=== PATIENT | male | born 1990 | race Caucasian/White ===

== ENCOUNTER 2023-04-01 16:29 | Emergency (ER) | payer OTHER, SELFPAY ==
--- NOTE | 2023-04-01 | CT_ITS ---
The [address] [address] Patient Name: JAMA GOLD MRN: [id number] date: 1990 Sex: M Assigned Patient Location: ER Current Patient Location: ER Accession/Order Number: [id number] Exam Date: 04/01/2023 16:55 Report Date: 04/01/2023 17:25 At the request of: SOWMYA TRUJILLO Procedure: CT cervical spine wo con EXAMINATION: CT head/brain wo con, CT cervical spine wo con HISTORY: fall COMPARISON: None. TECHNIQUE: CT scan of the head and cervical spine was performed without IV contrast. CT dose reduction technique was used, including Automated Exposure Control. FINDINGS: There are no extra-axial fluid collections. There is no mass effect or midline shift. The cerebral ventricles and sulci are normal. The brain demonstrates normal attenuation. Basal cisterns are patent. Bilateral orbits, paranasal sinuses and mastoid air cells are patent. No skull base fracture. Cervical spine: There is normal cervical lordosis. No spondylolisthesis. Atlantodental interval is normal. No prevertebral soft tissue swelling. No evidence for fracture at the skull base or throughout the cervical spine. IMPRESSION: No acute intracranial hemorrhage. No acute cervical spine fracture or subluxation. Electronically authenticated by: JEANE MONTES DE OCA Date: 04/01/2023 17:25
[2023-04-01 16:34] VITALS: BP 125/94; PULSE 78; RESP 18; TEMP 36.6; O2SAT 97; BMI 25.1
--- NOTE | 2023-04-01 16:45 | CT_ITS ---
The [address] [address] Patient Name: JAMA GOLD MRN: [id number] date: 1990 Sex: M Assigned Patient Location: ER Current Patient Location: ER Accession/Order Number: [id number] Exam Date: 04/01/2023 16:55 Report Date: 04/01/2023 17:25 At the request of: SOWMYA TRUJILLO Procedure: CT head/brain wo con EXAMINATION: CT head/brain wo con, CT cervical spine wo con HISTORY: fall COMPARISON: None. TECHNIQUE: CT scan of the head and cervical spine was performed without IV contrast. CT dose reduction technique was used, including Automated Exposure Control. FINDINGS: There are no extra-axial fluid collections. There is no mass effect or midline shift. The cerebral ventricles and sulci are normal. The brain demonstrates normal attenuation. Basal cisterns are patent. Bilateral orbits, paranasal sinuses and mastoid air cells are patent. No skull base fracture. Cervical spine: There is normal cervical lordosis. No spondylolisthesis. Atlantodental interval is normal. No prevertebral soft tissue swelling. No evidence for fracture at the skull base or throughout the cervical spine. IMPRESSION: No acute intracranial hemorrhage. No acute cervical spine fracture or subluxation. Electronically authenticated by: JEANE MONTES DE OCA Date: 04/01/2023 17:25
--- NOTE | 2023-04-01 16:45 | XR_ITS ---
The [place] [id number] Patient Name: JAMA GOLD MRN: [id number] date: 1990 Sex: M Assigned Patient Location: ER Current Patient Location: ER Accession/Order Number: [id number] Exam Date: 04/01/2023 17:04 Report Date: 04/01/2023 17:26 At the request of: SOWMYA TRUJILLO Procedure: XR knee LT 3V EXAM: XR knee LT 3V HISTORY: fall COMPARISON: None. TECHNIQUE: 3 views of the left knee FINDINGS: There is no acute fracture or dislocation. No knee joint effusion. The soft tissue is unremarkable. IMPRESSION: No acute process. Electronically authenticated by: JEANE MONTES DE OCA Date: 04/01/2023 17:26
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
== END 2023-04-01 18:05 | disposition home or self-care (01) ==
PROVIDERS: Emergency Provider Emergency Medicine
DX: S83.92XA Sprain of unspecified site of left knee, initial encounter (principal); S09.90XA Unspecified injury of head, initial encounter; W01.10XA Fall on same level from slipping, tripping and stumbling with subsequent striking against unspecified object, initial encounter
CPT/HCPCS: 70450; 72125; 73562; 99284

== ENCOUNTER 2024-03-06 16:02 | Outpatient (OUT) | payer OTHER, SELFPAY ==
--- NOTE | 2024-03-06 | XR_ITS ---
The [address] [address] Patient Name: JAMA GOLD MRN: [id number] date: 1990 Sex: M Assigned Patient Location: Current Patient Location: Accession/Order Number: [id number] Exam Date: 03/06/2024 16:05 Report Date: 03/07/2024 07:27 At the request of: RADHA ANDINO Procedure: XR knee LT 4V PROCEDURE: XR knee LT 4V COMPARISON: None. HISTORY: LEFT KNEE PAIN FINDINGS: BONES:No fracture, acute abnormality, or significant arthropathy. SOFT TISSUES:Negative. No visible soft tissue swelling. EFFUSION:None visible. OTHER: Negative. XR/XR knee LT 4V IMPRESSION: No acute radiographic abnormality Electronically authenticated by: THELMA PULLIAM Date: 03/07/2024 07:27
== END 2024-03-06 16:03 | disposition home or self-care (01) ==
LOC: EC 16:03
PROVIDERS: Visit Provider Student in an Organized Health Care Education/Training Program
DX: M25.562 Pain in left knee (principal)
CPT/HCPCS: 73564

== ENCOUNTER 2024-03-16 06:57 | Outpatient (OUT) | payer OTHER, SELFPAY ==
--- NOTE | 2024-03-16 06:59 | MR_ITS ---
[place] [id number] Patient Name: JAMA GOLD MRN: [id number] date: 1990 Sex: M Assigned Patient Location: MRI Current Patient Location: Accession/Order Number: [id number] Exam Date: 03/16/2024 07:30 Report Date: 03/17/2024 05:01 At the request of: RADHA ANDINO Procedure: MR knee LT wo con EXAMINATION: MR knee LT wo con HISTORY: Acute pain of left knee M25.562 ; medial knee pain COMPARISON: No relevant comparison available. TECHNIQUE: A complete multi-planar MRI was performed. FINDINGS: MEDIAL COMPARTMENT MEDIAL MENISCUS: No visible tear or significant degeneration. CARTILAGE: No visible defect. BONES: No marrow pathology, fracture, or significant arthropathy. MCL AND MEDIAL CAPSULE: Normal medial collateral ligament and medial capsule. LATERAL COMPARTMENT LATERAL MENISCUS: No visible tear or significant degeneration. CARTILAGE: No visible defect. BONES: No marrow pathology, fracture, or significant arthropathy. LCL/POSTEROLAT COMPLEX: Normal lateral collateral ligament, fascicles, lateral capsule and ligaments. ANTERIOR COMPARTMENT PATELLA: No marrow pathology, fracture, or significant arthropathy. CARTILAGE: No visible defect. TENDONS: Normal. EFFUSION: None. No synovitis or loose bodies. ACL: Normal appearing ligament. PCL: Normal appearing ligament. MENISCOFEMORAL: Normal meniscofemoral ligaments. OTHER: Negative. MR/MR knee LT wo con IMPRESSION: 1. Normal examination. Electronically authenticated by: NILSA CHEW Date: 03/17/2024 05:01
--- OUTSIDE RECORDS SUMMARY | 2024-03-16 07:00 | XMS_ITS | CCD ---
Author Organization [facility] ion [facility] Care Team Providers Care Powerhouse Oiler Name Role Phone FAWN TSAI Referring Unavailable BALDO DE Referring Unavailable REQUEST, DR FRYE LISTED Primary Care Unavaila greta GORE, DR RASHEED Viramontes Admitting Unavailabl e SOFÍA, DR RASHEED Viramontes Consulting Unavailabl e SOFÍA, DR RASHEED Viramontes Attending Unavailabl e RASTEVICKI, JEANE Consulting Unavailable Unavailable Primary Care Provider Unavailemilia e NO FAMILY, PHYSICIAN Primary Care Provider Unava ilable DO Ivan Mendoza Attending Provider Ivan Mendoza Unavailable Ivan Mendoza Admitting Unavailable Ivan Mendoza Attending Unavailable NO FAMILY, PHYSICIAN Primary Care Unavailable Oneal Roberto Admitting Unavailable Oneal Roberto Attending Unavailable NO FAMILY, PHYSICIAN Primary Care Unavailable Unavailable Primary Care Provider Unavailabl e DOTTIE, MIRANDA Referring Unavailable SVITLANA LI Referring Unavailable SVITLANA LI Referring Unavailable TABITHA WILLIS Attending Unavailable SELF Referring Unavailable SVITLANA LI Attending Unavailable SVITLANA LI Referring Unavailable SVITLANA LI Attending Unavailable BENI DIXON Attending Unavailable BALDO DE Referring Unavailable DOROTHY WALDRON Referring Unavailable JOHANNA JACQUES Attending Unavailable SELF Referring Unavailable SELF Referring Unavailable SVITLANA LI Referring Unavailable THELMA MARTINEZ JR Referring Unavailable LEVI HENRY II Attending Unavailable SVITLANA LI Attending Unavailable SVITLANA LI Referring Unavailable DOROTHY WALDRON Attending Unavailable DOROTHY WALDRON Referring Unavailable MIRANDA MUIR Attending Unavailable SVITLANA LI Referring Unavailable Allergies Allergy Classification Reported Allergen(s) Allergy Type Date of Onset Reaction(s) Facility (2 sources) Ibuprofen Drug Allergy 4 [facility] (1 source) Ibuprofen Drug Allergy 4 [facility] (1 source) Tetracaine Drug Allergy 4 Mental Status Change [facility] Medications Current Medications Medication Drug Class(es) Dates Sig (Normalized) Sig (Original) benoxinate hydrochloride 4 mg/ml / fluorescein sodium 3 mg/ml ophthalmic solution (2 sources) Diagnostic Dye Start: 03-10-2024 End: 03-10-2024 fluorescein-sarika xinate 0.3-0.4 % 1 Drop (FLURESS) 12 hr hyoscyamine sulfate 0.375 mg extended release oral tablet (12 sources) Start: 05-04-2023 End: 08-02-2023 take 1 tablet by mouth twice daily hyoscyamine SR (LEVBID) 0.375 mg 12 hr tablet TAKE 1 TABLET BY MOUTH TWICE A DAY 60 tablet 2 07/06/2023 Active Comment on above: Take 1 tablet by natanael th twice daily. TAKE 1 TABLET BY NATANAEL TH TWICE A DAY ketotifen 0.25 mg/ml ophthalmic solution (1 source) Histamine-1 Receptor Inhibitor Start: 03-10-2024 ketotifen fumarate (ALAWAY) 0.025 % (0.035 %) ophthalmic solution Use 1 Drop in both eyes two times a day. 10 mL 5 03/10/2024 Active meloxicam 15 mg oral tablet (19 sources) Nonsteroidal Anti-inflammatory Drug Start: 04-02-2023 meloxicam (MOBIC) 15 mg tablet Take one tablet once daily 30 tablet 0 04/02/2023 Active Comment on above: Take one tablet once daily methylPREDNISolone 4 mg oral tablet (2 sources) Corticosteroid Start: 03-07-2024 MEDROL, MCKINLEY, 4 mg Dose-Pack as directed po as directed 0 03/07/2024 Active Start: 12-04-2019 Depo-Medrol 40 mg Nov, 80 mg [place] (No Known Home Meds) (1 source) Start: 03-29-2020 [place] (No Kn own Home Meds) Active March 28, 2020 11:00pm pantoprazole 40 mg delayed release oral tablet (13 sources) Proton Pump Inhibitor Start: 05-03-2023 take 1 tablet by mouth once daily pantoprazole DR (PROTONIX) 40 mg tablet Take 1 tablet by mouth once daily. 30 tablet 3 05/03/2023 Active Comment on above: Take 1 tablet by natanael th once daily. perflutren lipid microspheres 1.3 mL in NaCl (PF) 0.9% 10 mL injection (DEFINITY) (20 sources) Start: 11-23-2022 End: 02-22-2024 perflutren lipid microspheres 1.3 mL in NaCl (PF) 0.9% 10 mL injection (DEFINITY) Start: 07-21-2022 End: 10-20-2023 perflutren lipid microsphere s 1.3 mL in NaCl (PF) 0.9% 10 mL injection (DEFINITY) predniSONE 5 mg oral tablet (2 sources) Start: 09-28-2023 predniSONE 5 M G TAKE 5 PILLS BY MOUTH x 2 DAYS, THEN TAKE 4 PILLS BY MOUTH x 2 DAYS, THEN TAKE 3 PILLS BY MOUTH x 2 DAYS, THEN TAKE 2 PILLS BY MOUTH X 2 DAYS, THEN TAKE 1 PILL BY MOUTH x 2 DAY Orally daily for 10 days Sep, Active Start: 06-12-2019 End: 03-29-2020 take 50 mg by mouth once daily at mealtime Prednisone Discontinued 50 MG PO Daily 5 5 June 11, 2019 11:00pm March 29, 2020 2:02am administer with food or milk 125 ml sodium chloride 9 mg/ ml prefilled syringe (20 sources) Start: 07-21-2022 End: 02-22-2024 sodium chloride 0.9 % (flush ) 10 mL (BD POSIFLUSH) Completed/Discontinued Medications Medication Drug Class(es) Dates Sig (Normalized) Sig (Original) [id number] 200 actuat albuterol 0.09 mg/actuat metered dose inhaler (1 source) beta2-Adrenergic Agonist Start: 06-12-2019 End: 03-29-2020 Albuterol Sulfate Discontinued 2 INH INHALATION .every 4 hours prn June 11, 2019 11:00pm March 29, 2020 2:02am administer with spacer benzonatate 100 mg oral capsule (1 source) Non-narcotic Antitussive Start: 06-12-2019 End: 03-29-2020 take 2 capsules by mouth three times daily Benzonatate (Tessalon Perles) 100 mg capsule Discontinued 200 MG PO Three times daily June 11, 2019 11:00pm March 29, 2020 2:02am clindamycin 300 mg oral capsule (1 source) Lincosamide Antibacterial Start: 04-19-2023 take 1 capsule by mouth every eight hours Clindamycin HCl 300 MG 1 cap(s) Orally tid for 10 day(s) Mar, Not-Taking/PRN dextromethorphan hydrobromide 3 mg/ml / promethazine hydrochloride 1.25 mg/ml oral solution (1 source) Phenothiazine, Uncompetitive O-jwizqx-Q-aspartat e Receptor Antagonist, Sigma-1 Agonist Start: 06-12-2019 End: 03-29-2020 take 1 mL by mouth every six hours Promethazine-Dm Discontinued 10 ML PO Q6H 118 June 11, 2019 11:00pm March 29, 2020 2:02am fluconazole 150 mg oral tablet (1 source) Azole Antifungal Start: 04-19-2023 Diflucan 150 MG 1 tablet Orally once for 2 days Take the first tablet today, take the second tablet in 3 days Mar, Not-Taking/PRN Ketorolac (1 source) Nonsteroidal Anti-inflammatory Drug, Cyclooxygenase Inhibitor Start: 12-27-2018 Toradol per 15 mg Dec, 60 mg Problems Active Problems Problem Classification Problem Date Documented Da te Episodic/Chronic Chronic obstructive pulmonary disease and bronchiectasis (1 source) Bronchitis; Translations: [Bronchitis, not specified as acute or chronic] 06-12-2019 Episodic Coronary atherosclerosis and other heart disease (20 sources) Calcification of coronary artery; Translations: [Atherosclerotic heart disease of tetlin coronary artery without angina pectoris] Onset: 11-25-2022 11-25-2022 Chronic Disorders of lipid metabolism (20 sources) Pure hypercholesterolemia ; Translations: [Pure hypercholesterolemia , unspecified] Onset: 11-25-2022 11-25-2022 Chronic Disorders of teeth and jaw (1 source) Jaw pain; Translations: [Jaw pain] 04-02-2023 Episodic Inflammation; infection of eye (except that caused by tuberculosis or sexually transmitteddisease) (1 source) Chronic allergic conjunctivitis; Translations: [Other chronic allergic conjunctivitis] 03-10-2024 Chronic Intracranial injury (1 source) Concussion with loss of consciousness; Translations: [Concussion with loss of consciousness of unspecified duration, subsequent encounter] 04-02-2023 Episodic Nutritional deficiencies (1 source) Vitamin D deficiency, unspecified; Translations: [Vitamin D deficiency] Onset: 09-13-2023 Chronic Open wounds of head; neck; and trunk (1 source) Scalp laceration; Translations: [Laceration without foreign body of scalp, subsequent encounter] 04-02-2023 Episodic Other connective tissue disease (2 sources) Pain in left lower limb; Translations: [Pain in left lower leg] 05-11-2023 Episodic Other connective tissue disease (1 source) Laxity of ligament; Translations: [Disorder of ligament, unspecified site] 05-11-2023 Episodic Other connective tissue disease (1 source) Abnormal posture Episodic Other eye disorders (1 source) Disorder of eye region; Translations: [Ocular pain, unspecified eye] 02-06-2021 Episodic Other eye disorders (1 source) Other specified disorders of eye and adnexa; Translations: [Red eye] Onset: 03-10-2024 Episodic Other gastrointestinal disorders (1 source) Diarrhea; Translations: [Diarrhea, unspecified] 05-03-2023 Episodic Other nervous system disorders (1 source) Other chronic pain; Translations: [Chronic right shoulder pain] Onset: 08-03-2022 Chronic Other nervous system disorders (1 source) Mononeuropathy, unspecified Chronic Other non-traumatic joint disorders (1 source) Pain in right shoulder; Translations: [Chronic right shoulder pain] Onset: 08-03-2022 Episodic Other non-traumatic joint disorders (1 source) Chronic pain of right upper limb; Translations: [Pain in right shoulder] 08-03-2022 Episodic Other non-traumatic joint disorders (1 source) Pain in left shoulder Episodic Other nutritional; endocrine; and metabolic disorders (1 source) Weight loss; Translations: [Abnormal weight loss] 05-03-2023 Episodic Other screening for suspected conditions (not mental disorders or infectious disease) (2 sources) Encounter for screening for cardiovascular disorders; Translations: [Patient encounter status] Onset: 09-25-2022 09-25-2022 Episodic Superficial injury; contusion (1 source) Corneal abrasion; Translations: [Injury of conjunctiva and corneal abrasion without foreign body, unspecified eye, initial encounter] 03-29-2020 Episodic Unclassified (1 source) Unspecified injury of right foot, initial encounter; Translations: [Unspecified injury of right foot, initial encounter] Onset: 11-30-2023 Unclassified (1 source) Pain in left shoulder; Translations: [Pain in left shoulder] Onset: 09-28-2023 Past or Other Problems Problem Classification Problem Date Documented Da te Episodic/Chronic Abdominal pain (6 sources) Right upper quadrant pain; Translations: [Right upper quadrant pain] Onset: 01-22-2023 Episodic Gastrointestinal hemorrhage (2 sources) Hematochezia; Translations: [Melena] Onset: 05-03-2023 05-03-2023 Episodic Malaise and fatigue (1 source) Other fatigue; Translations: [Other fatigue] Onset: 09-13-2023 Episodic Nausea and vomiting (2 sources) Nausea and vomiting; Translations: [Nausea with vomiting, unspecified] Onset: 05-03-2023 05-03-2023 Episodic Other connective tissue disease (20 sources) Tendinitis of right rotator cuff; Translations: [Other shoulder lesions, right shoulder] Onset: 01-14-2018 01-14-2018 Episodic Other connective tissue disease (1 source) Disorder of ligament, unspecified site; Translations: [Laxity, ligament] Onset: 10-26-2023 Episodic Other connective tissue disease (1 source) Pain in left lower leg; Translations: [Pain in left mcclelland] Onset: 05-11-2023 Episodic Other gastrointestinal disorders (1 source) Diarrhea, unspecified; Translations: [Diarrhea, unspecified type] Onset: 05-03-2023 Episodic Other non-traumatic joint disorders (8 sources) Pain in left knee; Translations: [Pain in joint, lower leg] Onset: 04-02-2023 04-02-2023 Episodic Other non-traumatic joint disorders (1 source) Pain in unspecified joint; Translations: [Polyarthralgia] Onset: 10-26-2023 Episodic Other nutritional; endocrine; and metabolic disorders (1 source) Abnormal weight loss; Translations: [Loss of weight] Onset: 05-03-2023 Episodic Residual codes; unclassified (20 sources) FH: premature coronary heart disease; Translations: [Family history of ischemic heart disease and other diseases of the circulatory system] Onset: 11-25-2022 11-25-2022 Episodic Residual codes; unclassified (1 source) Contact with and (suspected) exposure to lead; Translations: [Lead exposure risk assessment, high risk] Onset: 09-13-2023 Episodic Residual codes; unclassified (1 source) Family history of ischemic heart disease and other diseases of the circulatory system; Translations: [Family history of early CAD] Onset: 11-25-2022 Episodic Spondylosis; intervertebral disc disorders; other back problems (3 sources) Backache; Translations: [Dorsalgia, unspecified] Onset: 09-15-2023 09-15-2023 Episodic Sprains and strains (8 sources) Sprain of medial collateral ligament of left knee, initial encounter; Translations: [Sprain of medial collateral ligament of knee] Onset: 08-26-2023 04-02-2023 Episodic Results Test Name Value Interpretation Reference Range Facility XR foot RT min 3V*on 024 XR foot RT min 3V* [facility] [place] [address] [place] [address] XRay Report Signed Patient: Jama Goins MR#: [id number] : 1990 Acct:[id number] Age/Sex: 32 / M ADM Date: 11/30/23 Loc: [id number] Room: Type: [facility] Attending Dr: Oneal Roberto PA-C Copies to: JH Conklin Ordering Provider: JH Conklin Date of Service: 11/30/23 XR/XR foot RT min 3V*: S99.921A - Unspecified injury of right foot, initial enco... RIGHT FOOT - 3 views CLINICAL HISTORY: Injury to right foot last night now with pain and bruising first metatarsal COMPARISON: None FINDINGS: No focal soft tissue abnormality. No acute bony process. Joint spaces appear maintained. No bony erosions. XR/XR foot RT min 3V* IMPRESSION: NO ACUTE BONY PROCESS. Impression dictated by: Tono Weaver Jr., Armando11/30/2023 12:11 PM Dictation Location: [place] [address] Transcribed By: [facility] 11/30/23 121 Dictated By: Tono Weaver Jr, DO 11/30/231210 Signed By: 11/30/23 121 [facility] CNOVon 10-26-2023 CNOV Office Visit (SAUD ) JUSTIN GOINS ([id number]) 1990 M Date Time Provider Department 10/26/23 8:00 AM MIRANDA MUIR During your visit today, we recorded the following information about you: Pulse Blood pressure Weight 88/minute 118/81 82.5 kg Miranda Muir MD 10/26/2023 1:34 PM Signed [facility] Outpatient [facility] Date of Service: 10/26/2023 Patient: Justin Goins Medical Record: [id number] Primary Care Physician: No primary care provider on file. Referring Provider: Svitlana Li [id number] [facility] [address] Last Rheumatology visit: None at [facility] Chief complaint: New Patient (Ligament Laxity) Consultation requested by Svitlana Li PA-C for an opinion regarding ligament laxity. My final recommendations will be communicated back to the requesting physician by way of shared Medical record or letter to requesting physician via US mail. History of Present Illness Justin Goins is a 32 year old White adult with medical history of Cervical radiculopathy, presents on 10/26/2023 for an in-person visit for evaluation of New Patient (Ligament Laxity). Justin Goins is currently taking meloxicam. HISTORY OF PRESENT ILLNESS Patient is here for evaluation for ligament laxity He reports that his problem started with right shoulder pain in 2018, had MRI right shoulder that showed supraspinatus and infraspinatus partial-thickness tear and mild subacromial subdeltoid bursitis but no synovitis or joint effusion. That his joints slip and go out of place in his back, he has to reposition his joints to keep it in place. Also reports pulling bandlike sensation in the back He reports whole left hand swelling and puffy, for last 1-2 yrs, resolves in 2 days Swelling over left forearm tendon with grating Also reports numbness and tingling sensation over ulnar fingers bilaterally more on left side He also has mid scapula pain Left knee pain since injury Left leg slip outward while walking Fingers are hyperextended while carrying grocery bag, he has to pull it back Right toe tend to go inward while walking Has noted Leg swellling with indendation Joint Pain is worst in pm, worst with activities EMS- few minutes Has history of Back injury at age 10 yrs. He had chronic diarrhea, seen by basket operator, had EGD and colonoscopy in 04/2023, biopsy did not show any evidence of inflammatory bowel disease. He was also seen in ID clinic for eye redness, was diagnosed with UV keratitis, no history of uveitis or scleritis Reports that he is worried about parasite infection in eyes and whole body, reports night sweats. Reports boil like lesion over left posterior knee and bilateral armpits once. Denies fever. Had lost weight initially but has gained it back. 12/2022 Sed rate/CRP- normal CBC/CMP- unremarkable Radiograph left shoulder 09/2023-unremarkable XR thoracic spine 08/2023- Mild degenerative changes and thoracic dextroscoliosis XR tibia fibula left 04/2023- LEFT tibia and fibula 2 views 3 images compared with LEFT knee radiographs from April 02. There is no fracture or acute periosteal reaction. No destructive lesion. No soft tissue abnormality. MRI left knee 04/2023- LOW-GRADE SPRAIN OF THE MEDIAL COLLATERAL LIGAMENT. . No joint effusion. No synovitis. No Evans's cyst. XR cervical spine 07/2022- Vertebral height and alignment are maintained. No acute fracture or subluxation is identified. The disc spaces are maintained. Neural foramina are patent bilaterally. There is no prevertebral soft tissue swelling. XR right shoulder 07/2022- No fracture or dislocation is identified. The acromiohumeral interval and glenohumeral joint spaces are maintained. The acromioclavicular joint is maintained. MRI right shoulder 12/2017- 1. Supraspinatus and infraspinatus tendinosis with partial-thickness tears of both tendons as described above. 2. No visualized labral tear or paralabral cyst. 3. Mild subacromial subdeltoid bursal fluid/bursitis. Patient-Entered Data PAIN EVALUATION No data found in the last 1 encounters. PROMIS Assessments PROMIS Assessments 01/31/2018 08/06/2022 08/06/2022 Physical Health Percentile 15.39% 53% 53% Mental Health Percentile 72.57% 89% 89% Pain Score 6 4 4 RAPID 3 [place] Activities of Daily Living No Data Dress self? - Get in and out of bed? - Walk outdoors? - Wash and dry body? - Get in and out of car? - RAPID 3 Disease Activity Weighed Score Levels: 0 - 1: Near Remission 1.3 - 2.0: Low Severity 2.3 - 4.0: Moderate Severity 4.3 - 10.0: High Severity No flowsheet data found. Review of Systems ROS RHEUMATOLOGY Fever: Denies Change in weight: Lost and then gained, lost muscle mass in legs Lymphadenopathy: Denies Mucosal ulcers: Buccal mucosa and gums, painful, for last 1 year, no genital ulcers Skin ra (more content not included)... Normal [facility] XR FOOT 3V AP/LAT/OBL BILon 10-26-2023 XR FOOT 3V AP/LAT/OBL NATHAN * * *Final Report* * * DATE OF EXAM: Oct 26 2023 9:59AM [id number] - XR FOOT 3V AP/LAT/OBL NATHAN / PROCEDURE REASON: multiple diagnoses * * * * Physician Interpretation * * * * Bilateral foot radiographs HISTORY: Polyarthralgia and ligament laxity TECHNIQUE: 5 views of both feet COMPARISON: None available FINDINGS: No fracture, erosions or avascular necrosis. Joint spaces are preserved. A 5 mm subchondral cystlike lucency at the proximal phalanx of the right great toe. Midfoot alignment is preserved. Ankle and subtalar joints are intact. Soft tissues are unremarkable. IMPRESSION: 1. No erosive arthropathy evident 2. Small chronic subchondral cyst at the proximal phalanx of the right great toe Sightseeing Guide: KAIDEN Transcribe Date/Time: Oct 26 2023 11:06A Dictated by : BALTAZAR STALLINGS MD This examination was interpreted and the report reviewed and electronically signed by: BALTAZAR STALLINGS MD on Oct 26 2023 11:08AM EST [id number] Normal [facility] XR HAND 3V PA/LAT/OBL BILon 10-26-2023 XR HAND 3V PA/LAT/OBL NATHAN * * *Final Report* * * DATE OF EXAM: Oct 26 2023 9:59AM [id number] - XR HAND 3V PA/LAT/OBL NATHAN / PROCEDURE REASON: multiple diagnoses * * * * Physician Interpretation * * * * Bilateral hand radiographs HISTORY: Polyarthralgia and ligament laxity TECHNIQUE: 3 views of both hands COMPARISON: None available FINDINGS: No fracture, subluxation or erosions. Joint spaces are preserved. Chronic cystlike changes at the left second and third metacarpal heads and at the right second metacarpal head. Carpal alignment is preserved. Minimal scaphotrapezial osteophytes. Soft tissues are unremarkable. IMPRESSION: 1. No erosive arthropathy evident 2. Chronic cystic changes at the metacarpal heads bilaterally Sightseeing Guide: [facility] Transcribe Date/Time: Oct 26 2023 11:09A Dictated by : BALTAZAR STALLINGS MD This examination was interpreted and the report reviewed and electronically signed by: BALTAAZR STALLINGS MD on Oct 26 2023 11:10AM EST [id number] Normal [facility] XR SI JTS 2V AP PELV/FERGUSO Non 10-26-2023 XR SI JTS 2V AP PELV/DENNEY * * *Final Report* * * DATE OF EXAM: Oct 26 2023 9:59AM [id number] - XR SI JTS 2V AP PELV/DENNEY / PROCEDURE REASON: multiple diagnoses * * * * Physician Interpretation * * * * Sacroiliac joint radiographs HISTORY: Arthralgia and ligament laxity TECHNIQUE: 2 views of the sacroiliac joints COMPARISON: None available FINDINGS: No sacroiliac joint erosions, reactive sclerosis or bone fusion. The remainder the visualized osseous structures appear intact. IMPRESSION: 1. No significant sacroiliac joint abnormality Sightseeing Guide: [facility] Transcribe Date/Time: Oct 26 2023 11:08A Dictated by : BALTAZAR STALLINGS MD This examination was interpreted and the report reviewed and electronically signed by: BALTAZAR STALLINGS MD on Oct 26 2023 11:11AM EST [id number] Normal [facility] XR shoulder LT min 2V*on XR shoulder LT min 2V* [facility] [place] [address] XRay Report Signed Patient: Jama Goins MR#: [id number] : 1990 Acct:[id number] Age/Sex: 32 / M ADM Date: 09/28/23 Loc: SOXD Room: Type: [facility] Attending Dr: Ivan Mendoza DO Copies to: Ivan Mendoza DO Ordering Provider: Ivan Mendoza DO Date of Service: 09/28/23 XR/XR shoulder LT min 2V*: Acute pain of left shoulder 4 views LEFT shoulder plain film HISTORY: LEFT anterolateral shoulder pain for one day COMPARISON: None ACUTE FINDINGS: None DEGENERATIVE CHANGE: Unremarkable SOFT TISSUE FINDINGS: Unremarkable JOINT EFFUSION: None POSTOP CHANGES: None BONY MINERALIZATION: Adequate XR/XR shoulder LT min 2V* IMPRESSION: Unremarkable exam Impression dictated by: Zeke Andersen M.D.09/28/2023 4:00 PM Dictation Location: [place] [address] Transcribed By: [facility] 09/28/23 1600 Dictated By: Zeke Andersen DO 09/28/23 1600 Signed By: 09/28/23 1600 Normal [facility] XR shoulder LT min 2V* [facility] [employer] Other XR shoulder LT min 2V* [facility] [employer] Other XR shoulder LT min 2V* [address] [place] [address] [employer] Other XR shoulder LT min 2V* [place] [address] [employer] Other XR shoulder LT min 2V* XRay Report [employer] Other XR shoulder LT min 2V* Signed [employer] Other XR shoulder LT min 2V* Patient: Jama Goins MR#: [id number] [employer] Other XR shoulder LT min 2V* 9255 [employer] Other XR shoulder LT min 2V* : 1990 Acct:[id number] [employer] Other XR shoulder LT min 2V* Age/Sex: 32 / M ADM Date: 09/28/23 [employer] Other XR shoulder LT min 2V* Loc: SOXD Room: Type: [facility] [employer] Other XR shoulder LT min 2V* Attending Dr: Ivan Mendoza DO [employer] Other XR shoulder LT min 2V* Copies to: Ivan Mendoza DO [employer] Other XR shoulder LT min 2V* Ordering Provider: Ivan Mendoza DO [employer] Other XR shoulder LT min 2V* Date of Service: 09/28/23 [employer] Other XR shoulder LT min 2V* XR/XR shoulder LT min 2V*: Acute pain of left shoulder [employer] Other XR shoulder LT min 2V* 4 views LEFT shoulder plain film [employer] Other XR shoulder LT min 2V* HISTORY: LEFT anterolateral shoulder pain for one day [employer] Other XR shoulder LT min 2V* COMPARISON: None [employer] Other XR shoulder LT min 2V* ACUTE FINDINGS: None [employer] Other XR shoulder LT min 2V* DEGENERATIVE CHANGE: Unremarkable [employer] Other XR shoulder LT min 2V* SOFT TISSUE FINDINGS: Unremarkable [employer] Other XR shoulder LT min 2V* JOINT EFFUSION: None [employer] Other XR shoulder LT min 2V* POSTOP CHANGES: None [employer] Other XR shoulder LT min 2V* BONY MINERALIZATION: Adequate [employer] Other XR shoulder LT min 2V* XR/XR shoulder LT min 2V* [employer] Other XR shoulder LT min 2V* IMPRESSION: Unremarkable exam [employer] Other XR shoulder LT min 2V* Impression dictated by: Zeke Andersen M.D.09/28/2023 4:00 PM [employer] Other XR shoulder LT min 2V* Dictation Location: [place] [address] [employer] Other XR shoulder LT min 2V* Transcribed By: ODELL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 Facility-Administered Medications as of 09/06/2023 - perflutren lipid microspheres 1.3 mL in NaCl (PF) 0.9% 10 mL injection (DEFINITY) - sodium chloride 0.9 % (flush) 10 mL (BD POSIFLUSH) - perflutren lipid microspheres 1.3 mL in NaCl (PF) 0.9% 10 mL injection (DEFINITY) - sodium chloride 0.9 % (flush) 10 mL (BD POSIFLUSH) Video Specialist: Therapy (PT/OT/Speech/Resp) ID: [id number] 09/06/2023 9:06 AM Author: MARC JACOBSON Signed by MARC JACOBSON PT on 09/06/2023 at 9:06 AM Document text: Program_ID:[id number] Access Code: [email or web address] URL: [email or web address] .[employer]/ Date: 09-06-2023 Prepared By: Marc Jacobson Program Notes Exercises - Supine Quad Set - 1 x daily - 7 x weekly - 3 sets - 10 reps - Supine Heel Slide - 1 x daily - 5 x weekly - 1 sets - 10 reps - Active Straight Leg Raise with Quad Set - 1 x daily - 5 x weekly - 2 sets - 10 reps - Sidelying Hip Abduction - 1 x daily - 5 x weekly - 2 sets - 10 reps - Supine Hip Abduction - 1 x daily - 7 x weekly - 3 sets - 10 reps - Seated Table Hamstring Stretch - 1 x daily - 5 x weekly - 1 sets - 4 reps - Gastroc Stretch on Wall - x daily - 3 x weekly - 1 sets - 5 reps - Step Up - x daily - 3 x weekly - 1 sets - 10 reps - Runner's Climb - x daily - 3 x weekly - 1 sets - 10 reps - Lateral Step Up with Counter Support - x daily - 3 x weekly - 1 sets - 10 reps - Standing Heel Raise with Support - x daily - 3 x weekly - 2 sets - 10 reps - Hip Abduction with Resistance Loop - x daily - 3 x weekly - 2 sets - 10 reps - Seated Hamstring Curl with Anchored Resistance - x daily - 3 x weekly - 2 sets - 10 reps - Sit to Stand - x daily - 3 x weekly - 1 sets - 10 reps - Standing Terminal Knee Extension with Resistance - x daily - 3 x weekly - 1 sets - 10 reps Normal [facility] THERAPY NTon 09-06-2023 THERAPY NT HNO ID: [id number] Author: Marc Jacobson PT Service: ? Author Type: Physical Therapist Type: Therapy (PT/OT/Speech/Resp) Filed: 09/06/2023 9:06 AM Note Text: Program_ID:[id number] Access Code: [email or web address] URL: [email or web address] .[employer]/ Date: 09-06-2023 Prepared By: Marc Jacobson Program Notes Exercises - Supine Quad Set - 1 x daily - 7 x weekly - 3 sets - 10 reps - Supine Heel Slide - 1 x daily - 5 x weekly - 1 sets - 10 reps - Active Straight Leg Raise with Quad Set - 1 x daily - 5 x weekly - 2 sets - 10 reps - Sidelying Hip Abduction - 1 x daily - 5 x weekly - 2 sets - 10 reps - Supine Hip Abduction - 1 x daily - 7 x weekly - 3 sets - 10 reps - Seated Table Hamstring Stretch - 1 x daily - 5 x weekly - 1 sets - 4 reps - Gastroc Stretch on Wall - x daily - 3 x weekly - 1 sets - 5 reps - Step Up - x daily - 3 x weekly - 1 sets - 10 reps - Runner's Climb - x daily - 3 x weekly - 1 sets - 10 reps - Lateral Step Up with Counter Support - x daily - 3 x weekly - 1 sets - 10 reps - Standing Heel Raise with Support - x daily - 3 x weekly - 2 sets - 10 reps - Hip Abduction with Resistance Loop - x daily - 3 x weekly - 2 sets - 10 reps - Seated Hamstring Curl with Anchored Resistance - x daily - 3 x weekly - 2 sets - 10 reps - Sit to Stand - x daily - 3 x weekly - 1 sets - 10 reps - Standing Terminal Knee Extension with Resistance - x daily - 3 x weekly - 1 sets - 10 reps Normal [facility] CNTHERAPYon 08-26-2023 CNTHERAPY OT/PT/Speech Visit (SPPTAV) RITAJUSTIN LANG ([id number]) 1990 M Date Time Provider Department 08/26/23 9:15 AM MARC JACOBSON SPPGREGORV Date Time Provider Department [place] 08/26/2023 9:15 AM [id number], NANCY SPPTAV REJ Reason for Visit: PT Eval [747] Visit Diagnoses:Sprain of medial collateral ligament of left knee, initial encounter [S83.412A] Acute pain of left knee [M25.562] Allergies As of Date: 08/26/2023 (No Known Allergies) Date Reviewed: 05/11/2023 Reviewed by: Remi Yee MA - Fully Assessed Prescriptions as of 08/26/2023 - hyoscyamine SR (LEVBID) 0.375 mg 12 hr tablet TAKE 1 TABLET BY MOUTH TWICE A DAY - pantoprazole DR (PROTONIX) 40 mg tablet Take 1 tablet by mouth once daily. - meloxicam (MOBIC) 15 mg tablet Take one tablet once daily Facility-Administered Medications as of 08/26/2023 - perflutren lipid microspheres 1.3 mL in NaCl (PF) 0.9% 10 mL injection (DEFINITY) - sodium chloride 0.9 % (flush) 10 mL (BD POSIFLUSH) - perflutren lipid microspheres 1.3 mL in NaCl (PF) 0.9% 10 mL injection (DEFINITY) - sodium chloride 0.9 % (flush) 10 mL (BD POSIFLUSH) Video Specialist: Therapy (PT/OT/Speech/Resp) ID: [id number] 08/26/2023 10:06 AM Author: MARC JACOBSON Signed by MARC JACOBSON PT on 08/26/2023 at 10:06 AM Document text: Program_ID:[id number] Access Code: [email or web address] URL: [email or web address] Date: 08-26-2023 Prepared By: Marc Jacobson Program Notes Exercises - Supine Quad Set - 1 x daily - 7 x weekly - 3 - 10 - Supine Heel Slide - 1 x daily - 5 x weekly - 1 - 10 - Active Straight Leg Raise with Quad Set - 1 x daily - 5 x weekly - 2 - 10 - Sidelying Hip Abduction - 1 x daily - 5 x weekly - 2 - 10 - Supine Hip Abduction - 1 x daily - 7 x weekly - 3 - 10 - Seated Table Hamstring Stretch - 1 x daily - 5 x weekly - 1 - 4 Normal [facility] THERAPY NTon 08-26-2023 THERAPY NT HNO ID: [id number] Author: Marc Jacobson PT Service: ? Author Type: Physical Therapist Type: Therapy (PT/OT/Speech/Resp) Filed: 08/26/2023 10:06 AM Note Text: Program_ID:[id number] Access Code: [email or web address] URL: [email or web address]/ Date: 08-26-2023 Prepared By: Marc Jacobson Program Notes Exercises - Supine Quad Set - 1 x daily - 7 x weekly - 3 - 10 - Supine Heel Slide - 1 x daily - 5 x weekly - 1 - 10 - Active Straight Leg Raise with Quad Set - 1 x daily - 5 x weekly - 2 - 10 - Sidelying Hip Abduction - 1 x daily - 5 x weekly - 2 - 10 - Supine Hip Abduction - 1 x daily - 7 x weekly - 3 - 10 - Seated Table Hamstring Stretch - 1 x daily - 5 x weekly - 1 - 4 Normal [facility] CNPNon 07-15-2023 CNPN Telephone (PAINLN) JUSTIN GOINS ([id number]) 1990 M Date Time Provider Department 07/15/23 GABI ASHLEY During your visit today, we recorded the following information about you: Allergies As of Date: 07/15/2023 (No Known Allergies) Date Reviewed: 05/11/2023 Reviewed by: Remi Yee MA - Fully Assessed Prescriptions as of 07/15/2023 - hyoscyamine SR (LEVBID) 0.375 mg 12 hr tablet TAKE 1 TABLET BY MOUTH TWICE A DAY - pantoprazole DR (PROTONIX) 40 mg tablet Take 1 tablet by mouth once daily. - meloxicam (MOBIC) 15 mg tablet Take one tablet once daily Facility-Administered Medications as of 07/15/2023 - perflutren lipid microspheres 1.3 mL in NaCl (PF) 0.9% 10 mL injection (DEFINITY) - sodium chloride 0.9 % (flush) 10 mL (BD POSIFLUSH) - perflutren lipid microspheres 1.3 mL in NaCl (PF) 0.9% 10 mL injection (DEFINITY) - sodium chloride 0.9 % (flush) 10 mL (BD POSIFLUSH) Problem List As Of Date 07/15/2023 Noted Resolved Rotator cuff tendonitis, right [M75.81] 01/14/2018 Coronary artery calcification [I25.10, I25.84] 11/25/2022 Family history of early CAD [Z82.49] 11/25/2022 Pure hypercholesterolemia [E78.00] 11/25/2022 Encounter Status:Closed by THU SUAREZ on 07/15/23 [facility] Jas 06-10-2023 CNPN Telephone (PAINLN) ALLAJUSTIN ([id number]) 1990 M Date Time Provider Department 06/10/23 GABI ASHLEY During your visit today, we recorded the following information about you: Katherine Friend MA 06/10/2023 10:30 AM Signed Patient was advised of the following: This is a follow up phone call regarding your appointment with Dr Ashley, which you are scheduled to see at [facility] on 06/11/2023. 1) Have you been evaluated and treated by a Pain Management physician currently or in the past? If so, we will need a release of care from your previous physician. 2) Have you had any outside x-rays or MRI's related to the pain you are being seen for? If so, please bring copies to your appointment with you. Also please recall that our physicians will not take over medications. You will need to make sure you have enough pain medications to last until your follow up appointment with your current prescribing physician. Dr. Ashley is primarily an interventional pain management provider, which means, they treat with physical therapy, injections and non-narcotic medications. Any questions or you need to reschedule please call us at [phone]. Tried calling patient's phone number did not work Allergies As of Date: 06/10/2023 (No Known Allergies) Date Reviewed: 05/11/2023 Reviewed by: Remi Yee MA - Fully Assessed Reason for Visit: Appointment [186] Cmt: Pain Prescriptions as of 06/10/2023 - hyoscyamine SR (LEVBID) 0.375 mg 12 hr tablet Take 1 tablet by mouth twice daily. - pantoprazole DR (PROTONIX) 40 mg tablet Take 1 tablet by mouth once daily. - meloxicam (MOBIC) 15 mg tablet Take one tablet once daily Facility-Administered Medications as of 06/10/2023 - perflutren lipid microspheres 1.3 mL in NaCl (PF) 0.9% 10 mL injection (DEFINITY) - sodium chloride 0.9 % (flush) 10 mL (BD POSIFLUSH) - perflutren lipid microspheres 1.3 mL in NaCl (PF) 0.9% 10 mL injection (DEFINITY) - sodium chloride 0.9 % (flush) 10 mL (BD POSIFLUSH) Problem List As Of Date 06/10/2023 Noted Resolved Rotator cuff tendonitis, right [M75.81] 01/14/2018 Coronary artery calcification [I25.10, I25.84] 11/25/2022 Family history of early CAD [Z82.49] 11/25/2022 Pure hypercholesterolemia [E78.00] 11/25/2022 Encounter Status:Closed by KATHERINE FRIEND on 06/10/23 [facility] CNOVon 05-11-2023 CNOV Office Visit (ORAVON ) JUSTIN GOINS ([id number]) 1990 M Date Time Provider Department 05/11/23 8:30 AM SVITLANA NORMAN During your visit today, we recorded the following information about you: Svitlana Norman PA-C 05/11/2023 11:46 AM Signed Patient presents with: Left Knee - Follow Up, Results - Mri, Knee Pain HPI: A 32-year-old patient who presents for follow-up of left knee pain. He sustained a left knee MCL sprain about 1 month ago. He reports that his knee has been feeling intermittently better. He does feel that it is not fully healed and causes pain at times particularly at night which wakes him up at night. He has been working as usual, as he is not able to fully rest the knee due to the nature of his job. He obtained an MRI recently which showed an grade 1 sprain of the MCL. He does report that the swelling has decreased. He has been using his brace as well as an Kathleen wrap for comfort. He is able to bear weight on his leg. He also reports left mcclelland pain including point tenderness. Patient also reports that over the past year or so he has noted increased laxity of all of his joints. He also reports onset of unrelated symptoms including but not limited to chest pain, reflux, vomiting after eating, decreased muscle mass, inability to gain weight. He expressed concerns regarding these symptoms. He reports that he has sought out medical evaluation for the symptoms including cardiology as well as gastroenterology. He has underwent a colonoscopy. All without a definitive diagnosis. No past medical history on file. No past surgical history on file. Current Outpatient Medications Medication Sig Dispense Refill hyoscyamine SR (LEVBID) 0.375 mg 12 hr tablet Take 1 tablet by mouth twice daily. [address] (PROTONIX) 40 mg tablet Take 1 tablet by mouth once daily. 30 tablet 3 meloxicam (MOBIC) 15 mg tablet Take one tablet once daily 30 tablet 0 Current Facility-Administered Medications Medication Dose Route Frequency Provider Last Rate Last Admin perflutren lipid microspheres 1.3 mL in NaCl (PF) 0.9% 10 mL injection (DEFINITY) INTRAVENOUS DIRECTED Baldo West V, MD sodium chloride 0.9 % (flush) 10 mL (BD POSIFLUSH) 10 mL INTRAVENOUS DIRECTED Baldo West V, MD perflutren lipid microspheres 1.3 mL in NaCl (PF) 0.9% 10 mL injection (DEFINITY) INTRAVENOUS DIRECTED Baldo West V, MD sodium chloride 0.9 % (flush) 10 mL (BD POSIFLUSH) 10 mL INTRAVENOUS DIRECTED Baldo West V, MD No family history on file. ALLERGIES No Known Allergies ROS: + for arthritis limp limb pain no fevers chills CP or SOB. PE: General: well developed well nourished appears stated age Resp: nonlabored Abd: nontender Left Knee: stable on varus valgus and drawer testing, some pain with valgus stress ROM 0 to 115 degrees Tender to palpation of the infrapatellar area tender to palpation of anterior distal tibia DF PF EHL intact DP PT 2 + Edema no Effusion slight Gait: limp slight Mood: euthymic Coordination: normal Imaging: left knee MRI reveals IMPRESSION: LOW-GRADE SPRAIN OF THE MEDIAL COLLATERAL LIGAMENT. Dictated by : KYMBERLY AVILA MD Left tibia xray without evidence of acute fracture I have reviewed and interpreted films personally Labs: Hemoglobin A1C (%) Date Value 06/02/2018 4.7 CRP Date Value Ref Range Status 01/22/2023 <0.3 <0.9 mg/dL Final AP: 32 year old with a grade 1 MCL sprain. He should continue to use a brace as needed for comfort and stability. He should also continue with physical therapy. He can use a compression sleeve at night or during work for further support. We discussed his onset of other bodily symptoms, I do have a concern for a possible autoimmune disease. We discussed a referral for evaluation by rheumatology. The patient is very interested. He will follow-up with me in about 6 weeks, in the meantime I suggested he participate fully with physical therapy. We discussed that rest and PT will be best for pain relief and further healing. Addressed patient questions and concerns. Svitlana Norman PA-C Referring Provider: SELF [200] Allergies As of Date: 05/11/2023 (No Known Allergies) Date Reviewed: 05/11/2023 Reviewed by: Remi Yee MA - Fully Assessed Reason for Visit: Follow Up [171] Results - Mri [3561] Knee Pain [132] Primary Visit Diagnosis:Sprain of medial collateral ligament of left knee, subsequent encounter [S81.452D] Other Visit Diagnoses:Pain in left mcclelland [M79.662] Laxity, ligament [M24.20] Order(s):XR TIBIA FIBULA 2V AP/LAT LEFT [2827105] Order #: [id number] FUTURE CONSULT TO RHEUM/IMMUN DISEASE [9091] Order #: [id number]: 1 FUTURE Prescriptions as of 05/11/2023 - hyoscyamine SR (LEVBID) 0.375 mg 12 hr tablet Take 1 tablet by mouth twice daily. (more content not included)... [facility] CNPNon 05-11-2023 CNPN Telephone (INTMLN) JUSTIN GOINS ([id number]) 1990 M Date Time Provider Department 05/11/23 SVITLANA LI INTMLN During your visit today, we recorded the following information about you: Garrett Thomas 05/11/2023 8:27 AM Signed Patient called in at 8:20 Stating that he was going to be about 10 mins late to appointment. Tried to call office 3 times no answer. Please advise. Allergies As of Date: 05/11/2023 (No Known Allergies) Date Reviewed: 05/11/2023 Reviewed by: Remi Yee MA - Fully Assessed Prescriptions as of 09/30/2023 - hyoscyamine SR (LEVBID) 0.375 mg 12 hr tablet TAKE 1 TABLET BY MOUTH TWICE A DAY - pantoprazole DR (PROTONIX) 40 mg tablet Take 1 tablet by mouth once daily. - meloxicam (MOBIC) 15 mg tablet Take one tablet once daily Facility-Administered Medications as of 09/30/2023 - perflutren lipid microspheres 1.3 mL in NaCl (PF) 0.9% 10 mL injection (DEFINITY) - sodium chloride 0.9 % (flush) 10 mL (BD POSIFLUSH) - perflutren lipid microspheres 1.3 mL in NaCl (PF) 0.9% 10 mL injection (DEFINITY) - sodium chloride 0.9 % (flush) 10 mL (BD POSIFLUSH) Problem List As Of Date 05/11/2023 Noted Resolved Rotator cuff tendonitis, right [M75.81] 01/14/2018 Coronary artery calcification [I25.10, I25.84] 11/25/2022 Family history of early CAD [Z82.49] 11/25/2022 Pure hypercholesterolemia [E78.00] 11/25/2022 Encounter Status:Closed by GARRETT THOMAS on 09/30/23 Normal [facility] No Panel Informationon 05-11 [facility] XR TIBIA FIBULA 2V AP/LAT LT on 05-11-2023 XR TIBIA FIBULA 2V AP/LAT LT * * *Final Report* * * DATE OF EXAM: May 11 2023 9:29AM AFR 5265 - XR TIBIA FIBULA 2V AP/LAT LT / PROCEDURE REASON: Pain in left mcclelland * * * * Physician Interpretation * * * * HISTORY: Pain in left mcclelland TECHNOLOGIST PROVIDED HISTORY (if applicable): PAIN LEFT LOWER LEG WITH LUMP TECHNIQUE: XR TIBIA FIBULA 2V AP/LAT LT RESULT: LEFT tibia and fibula 2 views 3 images compared with LEFT knee radiographs from April 02. There is no fracture or acute periosteal reaction. No destructive lesion. No soft tissue abnormality. IMPRESSION: NORMAL Sightseeing Guide: KAIDEN Transcribe Date/Time: May 11 2023 10:10A Dictated by : RASHEED AVILES MD This examination was interpreted and the report reviewed and electronically signed by: RASHEED AVILES MD on May 11 2023 10:12AM EST [id number] [facility] (DEVAN) JUSTIN GOINS ([id number]) 1990 M Date Time Provider Department 05/04/23 THELMA MARTINEZ JR During your visit today, we recorded the following information about you: Telma Fernandez RN 05/04/2023 1:32 PM Signed ----- Message from Thelma Martinez Jr., DO sent at 05/04/2023 1:06 PM EDT ----- Maintain pantoprazole for GERD. Start Levbid twice daily for diarrhea and abd pain. Followup office. DO Jim Shipman Jr., Jennifer RN 05/04/2023 1:33 PM Signed Unable to LVM, VM was full, sent [employer] message. Schedulers, please schedule non-urgent follow up in the office. Thank you Telma Fernandez RN Nicola Fontenotly 05/05/2023 8:26 AM Signed Please contact the patient to schedule an appointment. Appointment specifications include: WHY does the patient need to be seen? Follow up WHO should the patient schedule the appointment with? Physician only WHAT specific type of appointment is needed? Follow-Up WHEN should the patient be seen? First available appointment WHERE should the patient be seen? In Office Allergies As of Date: 05/04/2023 (No Known Allergies) Date Reviewed: 05/03/2023 Reviewed by: Tamika Grajeda, SHERLYN - Fully Assessed Reason for Visit: Results [95] Prescriptions as of 05/07/2023 - hyoscyamine SR (LEVBID) 0.375 mg 12 hr tablet Take 1 tablet by mouth twice daily. - pantoprazole DR (PROTONIX) 40 mg tablet Take 1 tablet by mouth once daily. - meloxicam (MOBIC) 15 mg tablet Take one tablet once daily Facility-Administered Medications as of 05/07/2023 - lactated ringers iv infusion - perflutren lipid microspheres 1.3 mL in NaCl (PF) 0.9% 10 mL injection (DEFINITY) - sodium chloride 0.9 % (flush) 10 mL (BD POSIFLUSH) - perflutren lipid microspheres 1.3 mL in NaCl (PF) 0.9% 10 mL injection (DEFINITY) - sodium chloride 0.9 % (flush) 10 mL (BD POSIFLUSH) Problem List As Of Date 05/04/2023 Noted Resolved Rotator cuff tendonitis, right [M75.81] 01/14/2018 Coronary artery calcification [I25.10, I25.84] 11/25/2022 Family history of early CAD [Z82.49] 11/25/2022 Pure hypercholesterolemia [E78.00] 11/25/2022 Encounter Status:Closed by TELMA FERNANDEZ RN on 05/07/23 [facility] SURGICAL PATHOLOGYon 023 Case Report Surgical Pathology Report Case: [id number] Authorizing Provider: Thelma Martinez Jr., Collected: 05/03/2023 08:48 AM Ordering Location: Ambulatory Surgery Received: 05/03/2023 11:15 AM Pathologist: Issa John MD Specimens: A) - ANTRUM (STOMACH) BIOPSY, gastrits B) - ESOPHAGUS LOWER BIOPSY, esophagitis C) - COLON BIOPSY, random colon biopsies, r/o microscopic colitis [facility] FINAL DIAGNOSIS A. Antrum, biopsy: - Antral mucosa with no significant pathologic changes. B. Lower esophagus, biopsy: - Minimally inflamed cardiofundic mucosa; no evidence of intestinal metaplasia or dysplasia. C. Random colon, biopsy: - Colonic mucosa with no significant pathologic changes. - No evidence of lymphocytic or collagenous colitis. [facility] Gross Description A. ANTRUM (STOMACH) BIOPSY Received in formalin are two pieces of paz, soft tissue aggregating to 0.8 x 0.4 x 0.2 cm. Totally submitted in one cassette. B. ESOPHAGUS LOWER BIOPSY Received in formalin is one piece of paz, soft tissue measuring 0.3 x 0.3 x 0.2 cm. Totally submitted in one cassette. C. COLON BIOPSY Received in formalin are two pieces of paz, soft tissue aggregating to 0.9 x 0.3 x 0.2 cm. Totally submitted in one cassette. May 03, 2023 6:20 PM Gross examination performed at [facility], [address] Performing Lab Diagnostic interpretation performed at [facility], [address] [place] [address] CLIA# [id number] A&P Mechanic: Beni Lundy M.D. [facility] ANES POSTPROC EVALon 023 ANES POSTPROC EVAL HNO ID: [id number] Author: Levi Henry II, DO Service: Anesthesiology Author Type: Anesthesiologist Type: Anesthesia Postprocedure Evaluation Filed: 05/03/2023 10:29 AM Note Text: POST ANESTHESIA EVALUATION NOTE : 1990 Procedure Summary Date: 05/03/23 Room / Location: Ambulatory Surgery Anesthesia Start: 839 Anesthesia Stop: 911 Procedures: EGD DIAGNOSTIC COLONOSCOPY DIAGNOSTIC Diagnosis: Right upper quadrant abdominal pain Blood in stool Nausea and vomiting, unspecified vomiting type Diarrhea, unspecified type Loss of weight (Epigastric abdominal pain) (Generalized abdominal pain) (Diarrhea) Scheduled Providers: Thelma Martinez Jr., DO; Susana Mckee APRN.CRNA; Levi Henry II, DO Responsible Provider: Levi Henry II, DO Anesthesia Type: MAC ASA Status: 2 Anesthesia Type: MAC Last Vitals Vitals Value Taken Time BP 114/67 05/03/23 0932 Temp 36.4 05/03/23 1029 HR SpO2 71 05/03/23 0915 Resp 16 05/03/23 0915 SpO2 99 % 05/03/23 0934 Vitals shown include unvalidated device data. Post Anesthesia Patient Status Patient Evaluation: PACU. PACU/ICU Patient Condition: stable. Neurological Status: aware and responsive. Pulmonary Status: breathing comfortably on room air Airway Control: returned to baseline unsupported. Cardiovascular Status: stable. Pain Management: clinically adequate Postoperative Hydration: acceptable. Intraoperative Events: no significant anesthesia events Post Operative Nausea/Vomiting Status: no significant post operative nausea or vomiting Recommendation: continue current plan of care. Anesthesia Observations No Documentation SIGNATURE: Levi Henry II, DO PATIENT NAME: Justin Goins DATE: May 03, 2023 TIME: 10:29 AM CSN: [id number] [facility] ANES PRE-OPon 05-03-2023 ANES PRE-OP HNO ID: [id number] Author: Levi Henry II, DO Service: Anesthesiology Author Type: Anesthesiologist Type: Anesthesia Preprocedure Evaluation Filed: 05/03/2023 8:08 AM Note Text: ANESTHESIOLOGY DAY OF SURGERY NOTE : 1990 Procedure Information Date/Time: 05/03/23 0900 Scheduled providers: Thelma Martinez Jr., DO; Susana Mckee APRN.CRNA; Levi Henry II, DO Procedures: EGD DIAGNOSTIC COLONOSCOPY DIAGNOSTIC Location: Ambulatory Surgery Estimated body mass index is 24.94 kg/m? as calculated from the following: Height as of 04/16/23: 177.8 cm (5' 10 ). Weight as of 04/16/23: 78.8 kg (173 lb 12.8 oz). Most recent hematocrit and potassium results: Hematocrit 42.2 01/22/2023 Potassium 4.1 01/22/2023 Relevant Problems CARDIO (+) Coronary artery calcification I - PHYSICAL EVALUATION AIRWAY Patient intubated: No. Tracheostomy tube not present Mallampati: II. TM distance: >3 FB. Neck ROM: full ROM without neurological symptoms. Mouth opening: adequate. Short neck: no. Thick neck: no Cano present: yes DENTAL Dental findings: teeth intact. Additional exam findings: yes. CARDIOVASCULAR Rhythm: regular Rate: normal PULMONARY Breath sounds clear to auscultation. II - ANESTHESIA PLAN ASA Score: 2 Anesthetic Plan: MAC The patient is not a current smoker. NPO Status: adequate Beta Bobby Monitoring Plan Monitoring plan: standard ASA. Post Procedure Analgesic Plan Postoperative analgesic plan: parenteral or oral opioids. Informed Consent Anesthetic risks, benefits, alternatives, personnel and consent discussed: yes. Patient / Responsible [employer] Party agrees to proceed: yes Patient / Surrogate agrees to blood products: Yes Vitals Value Taken Time BP 125/71 05/03/23 0803 Pulse 85 05/03/23 0803 Resp 16 05/03/23 0803 Temp 36.3 ?C (97.4 ?F) 05/03/23 0803 SpO2 98 % 05/03/23 0803 Outpatient Medications as of 05/03/2023 Medication Sig - meloxicam (MOBIC) 15 mg tablet Take one tablet once daily Facility-Administered Medications as of 05/03/2023 Medication Dose Route Frequency - NaCl 0.9% iv infusion 50 mL/hr INTRAVENOUS CONTINUOUS - perflutren lipid microspheres 1.3 mL in NaCl (PF) 0.9% 10 mL injection (DEFINITY) INTRAVENOUS DIRECTED PRN - sodium chloride 0.9 % (flush) 10 mL (BD POSIFLUSH) 10 mL INTRAVENOUS DIRECTED PRN - perflutren lipid microspheres 1.3 mL in NaCl (PF) 0.9% 10 mL injection (DEFINITY) INTRAVENOUS DIRECTED PRN - sodium chloride 0.9 % (flush) 10 mL (BD POSIFLUSH) 10 mL INTRAVENOUS DIRECTED PRN I have interviewed and examined the patient. I have reviewed the medical record and/or the pre-anesthesia evaluation, pertinent labs, and test results. This contains updated information obtained within 48 hours of Surgery/Procedure. SIGNATURE: Levi Henry II, DO PATIENT NAME: Justin Goins DATE: May 03, 2023 TIME: 8:07 AM CSN: [id number] [facility] COLONOSCOPY DIAGNOSTICon [facility] Colonoscopyon 05-03-2023 Colonoscopy [facility] REPLACED BY [facility] Gastrointestinal Endoscopy Patient Name: Justin Goins Procedure Date: 05/03/2023 8:38 AM Date of : 1990 Admit Type: Outpatient Age: 32 Gender: Male Note Status: Finalized Procedure: Colonoscopy Indications: Generalized abdominal pain, Diarrhea Providers: Thelma Martinez Jr, DO Patient Profile: This is a 32 year old male. Refer to note in patient chart for documentation of history and physical. Last Colonoscopy: none. The patient's first colonoscopy is today. Patient has symptoms of chronic global abdominal pain and chronic diarrhea. Referring Physician: Thelma Martinez Jr, DO (Referring MD) Medicines: Propofol per Anesthesia, Monitored Anesthesia Care Complications: No immediate complications. Requesting Provider: Procedure: Pre-Anesthesia Assessment: - Prior to the procedure, a History and Physical was performed, and patient medications and allergies were reviewed. The patient's tolerance of previous anesthesia was also reviewed. The risks and benefits of the procedure and the sedation options and risks were discussed with the patient. All questions were answered, and informed consent was obtained. Prior Anticoagulants: The patient has taken no anticoagulant or antiplatelet agents. ASA Grade Assessment: III - A patient with severe systemic disease. After reviewing the risks and benefits, the patient was deemed in satisfactory condition to undergo the procedure. After I obtained informed consent, the scope was passed under direct vision. Throughout the procedure, the patient's blood pressure, pulse, and oxygen saturations were monitored continuously. The Colonoscope was introduced through the anus and advanced to the terminal ileum, with identification of the appendiceal orifice and IC valve. The colonoscopy was performed without difficulty. The patient tolerated the procedure well. The quality of the bowel preparation was good. The entire colon was visualized. The terminal ileum, ileocecal valve, appendiceal orifice, and rectum were photographed. Moderate Sedation: MAC anesthesia was administered by the anesthesia team. Findings: The digital rectal exam was normal. The terminal ileum appeared normal. The entire examined colon appeared normal on direct and retroflexion views. Biopsies for histology were taken with a cold forceps from the sigmoid colon for evaluation of microscopic colitis. Impression: - The examined portion of the ileum was normal. - The entire examined colon is normal on direct and retroflexion views. Biopsies obtained to rule out microscopic colitis. Recommendation: - Discharge patient to home. - Resume regular diet. - Continue present medications. - Await pathology results. - Repeat colonoscopy age 44 for screening purposes. - Patient has a contact number available for emergencies. The signs and symptoms of potential delayed complications were discussed with the patient. Return to normal activities tomorrow. Written discharge instructions were provided to the patient. Procedure Code(s): --- Professional --- 12284, Colonoscopy, flexible; with biopsy, single or multiple Diagnosis Code(s): --- Professional --- R10.84, Generalized abdominal pain R19.7, Diarrhea, unspecified CPT copyright 2020 [employer]. All rights reserved. The codes documented in this report are preliminary and upon time broker review may be revised to meet current compliance requirements. Attending Participation: I personally performed the entire procedure. Scope In: 8:55:40 AM Scope Out: 9:05:44 AM MD Thelma Godinez Jr, DO 05/03/2023 9:10:24 AM This report has been signed electronically by Thelma Martinez Jr, DO Number of Addenda: 0 Note Initiated On: 05/03/2023 8:38 AM Estimated Blood Loss: Estimated blood loss: none. [facility] EGD DIAGNOSTICon 05-03-2023 [facility] HISTORY PHYSICALon HISTORY PHYSICAL HNO ID: [id number] Author: Thelma Martinez Jr., DO Service: Gastroenterology Author Type: Physician Type: HANDP Filed: 05/03/2023 8:36 AM Note Text: HISTORY AND PHYSICAL EXAMINATION SERVICE DATE: 05/03/2023 SERVICE TIME: 8:34 AM Chief Complaint: N/V, abd pain, diarrhea HPI:This is a 32 year old adult with blood in stool, N/V, abd pain, and diarrhea. Symptoms intermittent for the past two years. He has tried dietary changes with limited benefit. N/V typically occurs after meals but no particular triggers. Abd pain is right sided, mainly RLQ. Diarrhea is chronic but improves with fasting and does not awaken him from sleep. Blood in stool is intermittent and typically bright red. Imaging has been negative. Never had an EGD or colonoscopy before. Family history of Crohn's (cousin). History reviewed. No pertinent past medical history. History reviewed. No pertinent surgical history. History reviewed. No pertinent family history. Social History Tobacco Use Smoking status: Former Packs/day: 1.00 Years: 11.00 Total pack years: 11.00 Types: Cigarettes Quit date: 08/29/2015 Years since quittin.6 Smokeless tobacco: Never Tobacco comments: Started at 12yo, and quit at 23yo Vaping Use Vaping Use: Never used Substance Use Topics Alcohol use: Yes Comment: weekly Drug use: Not Currently Types: Marijuana (Not in a hospital admission) ALLERGIES No Known Allergies COMPLETE REVIEW OF SYSTEMS: GENERAL: No weight loss, malaise or fevers RESPIRATORY: Negative for cough, hemoptysis, wheezing, COPD, dyspnea or shortness of breath CARDIOVASCULAR: Negative for chest pain, leg swelling, hypertension, CHF or palpitations GI: Positive for abdominal discomfort , diarrhea , nausea BP 125/71 Pulse 85 Temp (Src) 97.4 (Temporal) Resp 16 SpO2 98% O2 Therapy: Room Air PHYSICAL EXAM: Physical Exam Performed: GENERAL: Alert, no distress, cooperative LUNGS: Lungs clear to auscultation, Good diaphragmatic excursion CARDIAC: Normal S1 and S2; no rubs, murmurs, or gallops ABDOMEN: Abdomen soft, non-tender, BS normal, No masses or organomegaly EXTREMITIES: Extremities normal, no deformities, edema, clubbing or skin discoloration. Good capillary refill., No ulcers (R10.11) Right upper quadrant abdominal pain Plan: EGD DIAGNOSTIC, EGD DIAGNOSTIC, COLONOSCOPY DIAGNOSTIC, COLONOSCOPY DIAGNOSTIC (K92.1) Blood in stool Plan: EGD DIAGNOSTIC, EGD DIAGNOSTIC, COLONOSCOPY DIAGNOSTIC, COLONOSCOPY DIAGNOSTIC (R11.2) Nausea and vomiting, unspecified vomiting type Plan: EGD DIAGNOSTIC, EGD DIAGNOSTIC (R19.7) Diarrhea, unspecified type Plan: COLONOSCOPY DIAGNOSTIC, COLONOSCOPY DIAGNOSTIC (R63.4) Loss of weight Plan: COLONOSCOPY DIAGNOSTIC, COLONOSCOPY DIAGNOSTIC SIGNATURE: Thelma Martinez Jr., DO PATIENT NAME: Justin Goins DATE: May 03, 2023 TIME: 8:34 AM PAGER/CONTACT #: [facility] SURGICAL PATHOLOGYon 023 CASE REPORT [facility] Comment on above: Order Comment: Speci men Type: TISSUE SPECIMEN Ordering Facility: [facility] Address: [address] [place], [place] [id number] Result Comment: Surg [facility] Pathology Report Case: [id number] Authorizing Provider: Thelma Martinez Jr., DO Collected: 05/03/2023 08:48 AM Ordering Location: Ambulatory Surgery Received: 05/03/2023 11:15 AM Pathologist: Issa John MD Specimens: A) - ANTRUM (STOMACH) BIOPSY, gastrits B) - ESOPHAGUS LOWER BIOPSY, esophagitis C) - COLON BIOPSY, random colon biopsies, r/o microscopic colitis Performed By: #### S #### [facility] CLIA [id number] [address] [place] [address] LAB CLIA [id number] [address] [place] [address] FINAL DIAGNOSIS [facility] Comment on above: Order Comment: Speci men Type: TISSUE SPECIMEN Ordering Facility: [facility] Address: [address] [place], [place] [id number] Result Comment: A. A ntrum, biopsy: - Antral mucosa with no significant pathologic changes. B. Lower esophagus, biopsy: - Minimally inflamed cardiofundic mucosa; no evidence of intestinal metaplasia or dysplasia. C. Random colon, biopsy: - Colonic mucosa with no significant pathologic changes. - No evidence of lymphocytic or collagenous colitis. Performed By: #### S #### [facility] CLIA [id number] [address] [place] [address] LAB CLIA [id number] [address] [place] [address] FINAL PERFORMING LAB Normal [facility] Comment on above: Order Comment: Speci men Type: TISSUE SPECIMEN Ordering Facility: [facility] Address: [address] [place], [place] [id number] Result Comment: Diag nostic interpretation performed at [facility], [address] [place] [address] CLIA# [id number] A&P Mechanic: Beni Lundy M.D. Performed By: #### S #### [facility] [place] [id number] [address] [place] [address] [place] [facility] CLIA [id number] [address] [place] [address] [place] GROSS DESCRIPTION Normal [facility] Comment on above: Order Comment: Speci men Type: TISSUE SPECIMEN Ordering Facility: [facility] Address: [address] [place] [address] Result Comment: A. A NTRUM (STOMACH) BIOPSY Received in formalin are two pieces of paz, soft tissue aggregating to 0.8 x 0.4 x 0.2 cm. Totally submitted in one cassette. B. ESOPHAGUS LOWER BIOPSY Received in formalin is one piece of paz, soft tissue measuring 0.3 x 0.3 x 0.2 cm. Totally submitted in one cassette. C. COLON BIOPSY Received in formalin are two pieces of paz, soft tissue aggregating to 0.9 x 0.3 x 0.2 cm. Totally submitted in one cassette. May 03, 2023 6:20 PM Gross examination performed at [facility], [address] [place] [address] Performed By: #### S #### [facility] [place] [id number] [address] [place] [address] [place] [facility] CLIA [id number] [address] [place] [address] [place] Upper GI endoscopy 07-2 023 Upper GI endoscopy [place] REPLACED BY [facility] Gastrointestinal Endoscopy Patient Name: Justin Goins Procedure Date: 05/03/2023 8:39 AM Date of : 1990 Admit Type: Outpatient Age: 32 Gender: Male Note Status: Finalized Procedure: Upper GI endoscopy Indications: Epigastric abdominal pain, Dyspepsia, Suspected esophageal reflux, Nausea with vomiting Providers: Thelma Martinez Jr, DO Patient Profile: This is a 32 year old male. Refer to note in patient chart for documentation of history and physical. Patient has symptoms of acute dyspepsia and acute nausea. Referring Physician: Thelma Martinez Jr, DO (Referring MD) Medicines: Propofol per Anesthesia, Monitored Anesthesia Care Complications: No immediate complications. Requesting Provider: Procedure: Pre-Anesthesia Assessment: - Prior to the procedure, a History and Physical was performed, and patient medications and allergies were reviewed. The patient's tolerance of previous anesthesia was also reviewed. The risks and benefits of the procedure and the sedation options and risks were discussed with the patient. All questions were answered, and informed consent was obtained. Prior Anticoagulants: The patient has taken no anticoagulant or antiplatelet agents. ASA Grade Assessment: III - A patient with severe systemic disease. After reviewing the risks and benefits, the patient was deemed in satisfactory condition to undergo the procedure. After obtaining informed consent, the endoscope was passed under direct vision. Throughout the procedure, the patient's blood pressure, pulse, and oxygen saturations were monitored continuously. The Endoscope was introduced through the mouth, and advanced to the second part of duodenum. The upper GI endoscopy was accomplished without difficulty. The patient tolerated the procedure well. Moderate Sedation: MAC anesthesia was administered by the anesthesia team. Findings: LA Grade A (one or more mucosal breaks less than 5 mm, not extending between tops of 2 mucosal folds) esophagitis with no bleeding was found 37 cm from the incisors. Biopsies were taken with a cold forceps for histology. Localized moderate inflammation characterized by erosions and erythema was found in the gastric antrum. Biopsies were taken with a cold forceps for histology. The cardia and gastric fundus were normal on retroflexion. The examined duodenum was normal. Impression: - LA Grade A reflux esophagitis with no bleeding. Biopsied. - Gastritis. Biopsied. - Normal examined duodenum. Recommendation: - Await pathology results. - Discharge patient to home. - Resume regular diet. - Continue present medications. - Start pantoprazole 40 mg daily. - Await pathology results. Procedure Code(s): --- Professional --- 79866, Esophagogastroduodenosc opy, flexible, transoral; with biopsy, single or multiple Diagnosis Code(s): --- Professional --- K21.00, Gastro-esophageal reflux disease with esophagitis, without bleeding K29.70, Gastritis, unspecified, without bleeding R10.13, Epigastric pain R11.2, Nausea with vomiting, unspecified CPT copyright 2020 [employer]. All rights reserved. The codes documented in this report are preliminary and upon time broker review may be revised to meet current compliance requirements. Attending Participation: I personally performed the entire procedure. Scope In: 8:46:55 AM Scope Out: 8:49:59 AM MD Thelma Godinez Jr, 05/03/2023 8:53:44 AM This report has been signed electronically by Thelma Martinez Jr, DO Number of Addenda: 0 Note Initiated On: 05/03/2023 8:39 AM Estimated Blood Loss: Estimated blood loss: none. [facility] MRI KNEE WO IVCON LEFTon [facility] MRI KNEE WO IVCON LTon 04-30 MRI KNEE WO IVCON LT * * *Final Report* * * DATE OF EXAM: Apr 30 2023 4:35PM [facility] 0212 - MRI KNEE WO IVCON LT / PROCEDURE REASON: Sprain of medial collateral ligament of left knee, initial encounter * * * * Physician Interpretation * * * * EXAMINATION: MRI LEFT KNEE WITHOUT CONTRAST CLINICAL HISTORY: Knee pain after an acute fall in early March. Medial sided knee pain. Clinical concern for MCL injury. TECHNIQUE: Routine non-contrast MRI of the knee MQ: [id number] COMPARISON: Knee radiographs dated 04/02/2023 RESULT: MENISCI: Medial Meniscus: Intact. Lateral Meniscus: Intact. LIGAMENTS: ACL: Intact PCL: Intact MCL: Low grade sprain (grade 1) with edema signal. Visualized deep to the anterior aspect of the medial collateral ligament and near the femoral attachment of the total femoral ligament. LCL Complex: Intact CARTILAGE: Medial Femoral Condyle: Normal Medial Tibial Plateau: Normal Lateral Femoral Condyle: Normal Lateral Tibial Plateau: Normal Patella: Normal Trochlea: Normal TENDONS: The distal quadriceps and patellar tendons are intact. The popliteus tendon is intact. BONES AND MARROW: No evidence of fracture or bone marrow replacing process. MUSCLES: Muscle bulk and signal intensity are normal. JOINT FLUID AND SYNOVIUM: No joint effusion. No synovitis. No Evans's cyst. OTHER: Mild superficial infrapatellar edema/soft tissue thickening. Localizer images: No additional findings. IMPRESSION: LOW-GRADE SPRAIN OF THE MEDIAL COLLATERAL LIGAMENT. Sightseeing Guide: KAIDEN Transcribe Date/Time: Apr 30 2023 5:08P Dictated by : KYMBERLY AVILA MD This examination was interpreted and the report reviewed and electronically signed by: KYMBERLY AVILA MD on Apr 30 2023 5:12PM EST [id number] [facility] O+P Spec Microon 04-09-2023 Ova and parasites identified LM Nom (Unsp spec) OVA AND PARASITE EXAM: No Parasites Seen [facility] Comment on above: Performed By: #### 6 [id number] ####[facility] [id number] [address] [facility] CNOVon 04-08-2023 CNOV Office Visit ([place] ) JUSTIN GOINS ([id number]) 1990 M Date Time Provider Department 04/08/23 4:20 PM SVITLANA NORMAN During your visit today, we recorded the following information about you: Svitlana Norman PA-C 04/08/2023 4:59 PM Signed Schedule MRI in2 weeks Schedule PT 2 weeks Follow up with me in 3 weeks Svitlana Norman PA-C 04/08/2023 7:28 PM Signed Patient presents with: Left Knee - Established Patient Left Knee Pain HPI: This is a 29-year-old who presents for follow-up of left knee pain. He was seen by me about 1 week ago following a fall from a boat on land. He reports that he was consciousness when he fell and does not call how he injured his knee. He has been using an Kathleen wrap and crutches for the past week. He reports that the knee pain is still constant and especially worse at night. He does feel that his knee caves in and gives out. Pain is located on the inside aspect of his left knee. He is well to bear some weight on his leg. He has follow-up scheduled with management for a back injury as well as with neurology for recent concussion due to fall. No past medical history on file. No past surgical history on file. Current Outpatient Medications Medication Sig Dispense Refill meloxicam (MOBIC) 15 mg tablet Take one tablet once daily 30 tablet 0 Current Facility-Administered Medications Medication Dose Route Frequency Provider Last Rate Last Admin perflutren lipid microspheres 1.3 mL in NaCl (PF) 0.9% 10 mL injection (DEFINITY) INTRAVENOUS DIRECTED Baldo West V, MD sodium chloride 0.9 % (flush) 10 mL (BD POSIFLUSH) 10 mL INTRAVENOUS DIRECTED Baldo West V, MD perflutren lipid microspheres 1.3 mL in NaCl (PF) 0.9% 10 mL injection (DEFINITY) INTRAVENOUS DIRECTED Baldo West V, MD sodium chloride 0.9 % (flush) 10 mL (BD POSIFLUSH) 10 mL INTRAVENOUS DIRECTED Baldo West V, MD No family history on file. ALLERGIES No Known Allergies ROS: + for arthritis limp limb pain no fevers chills CP or SOB. PE: General: well developed well nourished appears stated age Resp: nonlabored Abd: nontender Left Knee: stable on varus and drawer testing. Instability and pain with valgus stress ROM 0 to 100 degrees DF PF EHL intact DP PT 2 + Edema no Effusion no Gait: limp yes due to pain, using crutches Mood: euthymic Coordination: normal Imaging: reveals no evidence of fracture or dislocation. I have reviewed and interpreted films personally Labs: Hemoglobin A1C (%) Date Value 06/02/2018 4.7 CRP Date Value Ref Range Status 01/22/2023 <0.3 <0.9 mg/dL Final AP: 32 year old with recent left knee injury. With persistent pain over the past week, we will proceed with an MRI of the left knee to evaluate for internal derangement. The patient will continue taking Mobic for pain control. He also can use crutches as needed. He was given a brace today by our [employer] representative. He feels this provides support and stability for his knee. We have put an order outpatient PT which she will begin over the next couple of weeks. He was scheduled MRI. He will follow-up with me once the MRI is complete. Svitlana Norman PA-C Allergies As of Date: 04/08/2023 (No Known Allergies) Date Reviewed: 04/08/2023 Reviewed by: Imani Nolan MA - Fully Assessed Reason for Visit: Established Patient [175] Left Knee Pain [1208] Primary Visit Diagnosis:Sprain of medial collateral ligament of left knee, initial encounter [O33.012O] Order(s):CONSULT TO PHYSICAL THERAPY [9402] Order #: [id number]: 1 FUTURE MRI KNEE WO IVCON LEFT [[id number]] Order #: [id number] FUTURE Prescriptions as of 04/08/2023 - meloxicam (MOBIC) 15 mg tablet Take one tablet once daily Facility-Administered Medications as of 04/08/2023 - perflutren lipid microspheres 1.3 mL in NaCl (PF) 0.9% 10 mL injection (DEFINITY) - sodium chloride 0.9 % (flush) 10 mL (BD POSIFLUSH) - perflutren lipid microspheres 1.3 mL in NaCl (PF) 0.9% 10 mL injection (DEFINITY) - sodium chloride 0.9 % (flush) 10 mL (BD POSIFLUSH) Problem List As Of Date 04/08/2023 Noted Resolved Rotator cuff tendonitis, right [M75.81] 01/14/2018 Coronary artery calcification [I25.10, I25.84] 11/25/2022 Family history of early CAD [Z82.49] 11/25/2022 Pure hypercholesterolemia [E78.00] 11/25/2022 Other instructions from your clinician: Schedule MRI in2 weeks Schedule PT 2 weeks Follow up with me in 3 weeks Encounter Status:Closed by SVITLANA NORMAN on 04/08/23 [facility] CNOVon 04-02-2023 CNOV Office Visit (ORAVON ) JUSTIN GOINS ([id number]) 1990 M Date Time Provider Department 04/02/23 5:40 PM SVITLANA NORMAN During your visit today, we recorded the following information about you: Svitlana Norman PA-C 04/02/2023 7:03 PM Signed Patient presents with: Left Knee - Pain, New HPI: This is a 32 year old who presents with acute left knee pain after a fall yesterday. He reports he was working on his boat and fell backward onto the concrete. He lost consciousness and reports he awoke on his patio and then went upstairs to sleep. He presented to an outside hospital ED yesterday evening. He presents today with severe left knee pain. He has been using crutches to ambulate. He has tried Tylenol for pain relief. He also complains of neck and upper back pain. No past medical history on file. No past surgical history on file. Current Outpatient Medications Medication Sig Dispense Refill meloxicam (MOBIC) 15 mg tablet Take one tablet once daily 30 tablet 0 Current Facility-Administered Medications Medication Dose Route Frequency Provider Last Rate Last Admin perflutren lipid microspheres 1.3 mL in NaCl (PF) 0.9% 10 mL injection (DEFINITY) INTRAVENOUS DIRECTED CARLIN De V, MD sodium chloride 0.9 % (flush) 10 mL (BD POSIFLUSH) 10 mL INTRAVENOUS DIRECTED CARLIN De V, MD perflutren lipid microspheres 1.3 mL in NaCl (PF) 0.9% 10 mL injection (DEFINITY) INTRAVENOUS DIRECTED CARLIN De V, MD sodium chloride 0.9 % (flush) 10 mL (BD POSIFLUSH) 10 mL INTRAVENOUS DIRECTED CARLIN De V, MD No family history on file. ALLERGIES No Known Allergies ROS: + for limp limb pain no fevers chills CP or SOB. PE: General: well developed well nourished appears stated age Resp: nonlabored Abd: nontender Left Knee: stable on varus and drawer testing. Slight instability and guarding on valgus stress ROM 5 to 80 degrees due to pain DF PF EHL intact DP PT 2 + Edema no Effusion yes Gait: unable to weight bear due to pain, using crutches Mood: euthymic Coordination: normal Imaging: reveals no acute process, no evidence of acute fracture or dislocation. I have reviewed and interpreted films personally Labs: Hemoglobin A1C (%) Date Value 06/02/2018 4.7 CRP Date Value Ref Range Status 01/22/2023 <0.3 <0.9 mg/dL Final AP: 32 year old with suspected medial collateral ligament sprain. He already has crutches, he will continue to be non-weight bearing until able to tolerate. I applied an KATHLEEN wrap today and instructed him to obtain a compression sleeve brace from a drugstore. He should proceed with ice and elevation and I have also sent an Rx for Mobic. He will schedule an appointment with [facility] on Wednesday to be fitted for a brace. He will follow up with me in clinic . He should follow up with primary care and neurology for concussion symptoms as well as neck pain. Svitlana Norman PA-C Referring Provider: SELF [200] Allergies As of Date: 04/02/2023 (No Known Allergies) Date Reviewed: 04/02/2023 Reviewed by: Svitlana Norman PA-C - Fully Assessed Reason for Visit: Pain [78] New [935510] Primary Visit Diagnosis:Sprain of medial collateral ligament of left knee, initial encounter [S83.412A] Other Visit Diagnosis:Acute pain of left knee [M25.562] Order(s):XR KNEE GENERAL 4V AP BOTH/PA BOTH/LAT/MERC LEFT [[id number]] Order #: [id number] FUTURE meloxicam (MOBIC) 15 mg tabletTake one tablet once dailyDisp: 30 tabletRfl: 0 Prescriptions as of 04/02/2023 - meloxicam (MOBIC) 15 mg tablet Take one tablet once daily Facility-Administered Medications as of 04/02/2023 - perflutren lipid microspheres 1.3 mL in NaCl (PF) 0.9% 10 mL injection (DEFINITY) - sodium chloride 0.9 % (flush) 10 mL (BD POSIFLUSH) - perflutren lipid microspheres 1.3 mL in NaCl (PF) 0.9% 10 mL injection (DEFINITY) - sodium chloride 0.9 % (flush) 10 mL (BD POSIFLUSH) Problem List As Of Date 04/02/2023 Noted Resolved Rotator cuff tendonitis, right [M75.81] 01/14/2018 Coronary artery calcification [I25.10, I25.84] 11/25/2022 Family history of early CAD [Z82.49] 11/25/2022 Pure hypercholesterolemia [E78.00] 11/25/2022 Prescriptions ordered this encounter Disp Refills Start End MELOXICAM 15 MG TABLET 30 t* 0 04/02/2023 Sig: Take one tablet once daily Encounter Status:Closed by SVITLANA NORMAN on 04/02/23 [facility] Office Visit (FAMPAV ) JUSTIN GOINS ([id number]) 1990 M Date Time Provider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 3RyPjwv dGFibGU+PHRhYmxlIHdpZHR xTMrsSMChJbAnyOteGS2nRx 9yZGVyLWNvbGxhcHNlOiBjb 2xsYXBz FSpkMZ3xfAyyB4CqbIS9OMH wf9n7Rp48B49hE6PqrSR+PG FvsIO4qBP8oP1mEdJsGrE9I FrtU651 DqGqbGIlMycpl7cvw2jteDt 9AiMmTDSfckExkQbcRLY4u8 MtSo81S91nMHmkKZMnNQInG CUiIHZh lVlvar2syK2qOu1+PGNvbCB 4bWJ4dR4qQuTbSpG7FSjvR2 21NsCqjEKiVkdrR07oS6Mev XA+PHRy Lgx2ENZonIazJZ1slMXaMOf zUg8lKCE1UsUrAyPiHTlnL8 QoDRXnwkxfjrerqCC8EGJrZ DUwaW47 Pw6czWoxOx8aZGVvZRO1YAD jcGCnJ9QstM1aDdNcCOPcVH XhS5JxhYEtJHtrY966PHmbP lC9ZETc noUkA1XsPIFyxLwbOmB7u8Y 9Wi1LpCjzcTDpGD0rHmVcOW a5T2EsDcz4PXHtpVziFF3yw GFkZGlu Ml1cxWcsgBewJS8sYEEtgst zc461HnGmq7hdBDTveRMlBG eeCIJ4G50es7F2WBLrDSClD UC8oTQ7 tY7flKomuueqmZGkyVjqtfY qtSprHZumOAdsZ701TIZocB tmEsRZKnc3Q6RpUza3JDLev UncDZ1y bGDeIRnmWn1jzQyhwQkcAA6 bVWTiccgpk286YoNpg2upLA AgaSPtMMvqKZQ3D90yk3O4L CMwMDAw GHA4zXV9jV2mnPvshcjjiMC mdDsgdmVydGljYWwtYWxpZ2 63GUWpnPvmOs0GScz9A8MoV pm4KVDt aSbwHL0atAYvFEmaIo7erFc rxDwqRA6oIOOsqnifl670Th Wgo5zmYBCbnBDtATwrOOS4M 01ar9Z6 FITqLAWaNRA7lFB7dD5rvSk nbjogbGVmdDsgdmVydGljYW rbNCxwZ820SNMwrAnjWfBpv WVyOjwv dGQ+FD11vz51D5AuHuqxHgw 3HDXvKKP4dES8aJ9zOIOaFR nll4G4oUX3A8RaopSxnk7kg 2xsYXBz ZTog (more content not included)... Normal [facility] Coding Summary.on 04-28-2021 Coding Summary. CD:[id number]:[id number] Gh0 bWw+PGhlYWQ+HZ6DVAZaW04 hfUFunO8HX5nRIX5VKFHLDL VBYI5FJG9fpRH8XCzfV9Sck iAv FtyrbACzMD68VYf5BKG7fYs mZVnvdE0qsXWwB3k4DkFmIS 53lS63CWyoMBQbVxF1IdJge jsgbWFy J3nrGjGjaZQnYye+PHRhYmx lIHdpZHRoPScxMDAlJyBzdH pbNI0jWc8hRIGkVUHgqWneu HNlOiBj p8jeBKDpPYmnLL0lpVlrL6L gtQW9INNtf4a1Jq76tYD+PH UxIMO3hGbbFZczi885AvUjw 5xbNKJ8 jMWvHIlbHPA9X72qm5N4ECO bNGFzZDK0dYM6cQ4kwHypki gfW7AcgCDkDiL6UEN3wBQhu K1pcZax lmxmeY4mOmg+M55CFK4YKGY UTK7CZbv2H5KsDwpbgHC+PC 61JUXhEA22wHAklTImk1hes Zd9KjZs PDCdEQN2fDctDLomn5LlMZX gH60fcUGmk0N2ZOQqnZfglC ZtZrNewJT9bG2rJNvixdvlf 2hvdzsn Zjcgi9uynz59gO95Z48vWXp tNTYdBNW1XBQcCRMxvEfqwj 6ddI4yLx8+LDsfo1krs5cwy Rv7RrRv JVPlwyCdxPdoWGG7z0DeYf7 8Z0RayUkfy5FnAnw0jd73vT Erg7V3fCP6GQbeQAPzrA3mL WxlZnQ6 XMPzQwJhvP89uHLkOAmmFz4 wlNouuIucLP3hMOEywmryIB ZbmU3lDKKdyCPjxMmcGZ1eJ TBpbjtm j660KwUxNMJ4TKYhzGEcQ8R snQ7uGcLgNRQtCWYvR9DnrN JjRSsjV287RZskGhZ5DZGuq pSvD1Ml OHEdmYkhVgU2n5E1Ij5Mr3A aiwjeKGY7BHutNOC7KoZhEr AuSeA5K0NeUmf9JAMlyPwuD N1gF4Or AGUvtjeujkbgrDP6PLBtBTH mmP44sZMlPYofMf8ct9L5a6 70YIJqOFGaeM92Bn8ngTxvQ TBwdCBU gO1mzqtlk3uqblwnHyVlHXV qBEc5TUt6VOOamByeLyNyGA W5XfF5UKF4rFLneW5nxHtvj mopaR9u Oyc+G93pfH3kRLD2VBT6ptx cCYPxkwBiBG08GA57O5QkBn wvdGFibGU+PGRpdiBzdHlsZ A2rUyHj d9qzp2NtQRwdC6TcJFNiEGd uOon9UJXoVVH1zLS3zI1tOD KtAJhwd2A3tPB7F1DsdpBoh i2hm8uh TDDlYNpvU66rjUMwu7R9QZE ldFP0OPBraRxrBuDvfI74Ge c+HMLudCvxb1ZjWvebq4jcc 0womCf6 FhAnBJIydsCzwIgeDLG8t7E wYg91K67tHHbaKGHfBAGzMC RyYACgmTrtio6uiN8eZz2+P GNvbCB3 rGJ5jG6iVINhIcY2KPgwT76 0XoHgaYIlSpdkq4jzm4wyyK v2UdYhOUWwxyNccPsoTPZ8h 8ApBb64 I25tCGpmRIWuMHIgXRYzNNS rxZsufr1zrB7tXy6+PC9jb2 nsks23uC93vOP+UDGvTPK5c WxlPSdw KUBitA4kVPsxHwJ5KSJcLoR uvA28qCVfQLyuTp2eeQjohM nnDO1sOPNeszhgl047UtLkw 2xkIDEw qWHeDSwvQNH0M91jy8Q0QIT cNPFcQHS6eHD6mG3yqNoqkm ogbGVmdDsgdmVydGljYWwtY XcxZ816 IHRvcDsnPlBhdGllbnQgTmF eVTp5S1FjZcf6CICvgOqwDM 8ilXTjTXvuNt0udFonmLhxP C3fGBEx cnohz979WcBzb8tvVIPtjWK sHZlhMYO8V95vz4C4EYVpSH GiSPQ6gUL9nH2sjFtekonec GVmdDsg lwCuwNrlKFlwHBuiW506YQI wgAxoWbSqpbHzMMBiqXC2YP 40BC92hTJmr8M0fVB3C6SoM GRpbmct ymbiwUX0VKOzFSQcmK80Mf4 afWdlVt3hQACyDVH0DOYniS EkS9PlfO1iZsCuBAKwFHYvG 3RleHQt CHzpD841GPamLkG8TYMvibK sC6ZjWIFmaHpgViM8p1W6Ze 0ZL5G7FT46QO60cSHbx4G8t DN3V7Cz XCKkuhrzvoytnPB6WJYeVGP ozY66Gb5kmAizEd3wGUPiIW L4WBDvkZRmP4GbmO9gXvVfV DAwMDAw E8OdbDXgXAefW125WRemVaN 0RYQbedMuK1ZvXYMccVlkVl B7h6K2Vw4QJNn1KQ87SL95u SMhf8R7 uTZ7B2VxAXRpmfwjpkzmgME 7FSLyYROddG88Ku2enWekCd 8qJHFzBFX4EUIjxISzZ4Khp C3mKrAc GGOoZESzS2OrvZKuJTbqK79 1FJmmEyV0PZCjjxDtK6KcXN LknEkiHzB9g6F8Vl6VODClT R23QSU5 kSV7CM16JX60W2XkCpyrkUI ibGU+PHRhYmxlIHdpZHRoPS tjMIJfYgAiwWmaWP8fDk3bH GVyLWNv hTbepIPyHnWeh7dyYUAwRGg rSV3zoLlsF2EcaVR8TDVds6 g6Vq10X96sP6MpbOJ+PGNvb TH0tUE2 hR8dCsMiTrD5TKdbC000DnP dvZRqGmdsn9gsx7crgPb1Uo T7PNFdymPmgEvgRQL7c8QeM f35E35f IHdpZHRoPSIxNSUiIHZhbGl xtd3vhW0rAs8+MXEzrXI7xY W6lL4oCkBzSrN5SXgkQ608Y nRvcCIv Rgpsx8koq4xfjGl8WyWyVTO axiVckZacANC3i5UnWx29D2 WouIifx4JrUye0mg10sJDoz 2L4uXM4 S7RoSHDvrkpbjCNnjWhjAB0 vGZMdyrjxUJWekT2wTVKxF4 l3RiFoGbC4UDajT7WseiQ7P DEwcHQg LZxtDDU0D65xc5Q3QWMjOZS nJXX2dBZ6aP1tpPfzvkgykW VmdDsgdmVydGljYWwtYWxpZ 246IHRv qVrsIFCoqB3yJGTvsCBorSz iHQ9lMKDzbxhdMsKXHCHMVv vkNX7JS4wBZvyuyBG+PHRkI TT0gRgf MKzsDDTgfO0oNYPeK9d7RkR xAoO0LNxeL5QgFPLxwibaUg 71cM6hUdFmJbN0RDhzF6Lvz cR3SBLv mWXjPMsuNBU1K14ru6Z0BTF pDGSwDIM8zEL1dL6apSjamh ogbGVmdDsgdmVydGljYWwtY IbrU029 VADjbZymDlAcMsU5SqM4AQX 3L9WyLop2QJDsvVjfWL2wiT HtTUczBm4qmHvtxZviGS6eV TBpbjtw LGWicX7fTEDyvZHglAynXL0 bFJKtudsps034HgZoCQW6DF LjwGNwK6CgjP1cDsAhEHDtF WVfO7Fo lQLhSXglA320LFvlWvA1UAD burOvL1PtFVJpwDyyTwF7g5 V3Sh6uFMZYSKRwxaljuMS+P HRkIHN0 dAvwNLbfXWNrkT9nXFUaE3z 8PeWmNhP3UFvrW4KcFTFaan icBp59fD0cVsXcIwI5BTeuX 6AwfvD3 OQQlzKEzJVnfQIW0H29ur4N 8UHRhAEWaBID4qCD2dR9dzD lnbjogbGVmdDsgdmVydGljY WwtYWxp E116KFYuuVpvHw4qrXY9W3D fVop7KXVawEglCS4rnZCzLX zyJf5aeOftmHxfDV7uTEFom jtwYWRk eO2qOIWsiRYwhFvkJE2cODI vmxzdn490ChWtRBV8GWRwrD ZjZ9KwoJ5kEgWfNUYwOOMpZ 3RleHQt NLwoY090ZKjgUdT5QJEqxxM fE6ApDIMjrPtsQaM1t4L2Wr 2AKAIxLVNloPWuDqE8J4EoR jwvdHI+ XP64WKWmEE20uGLlhLMfv0c emEl4FrMeOUTvSAZ1eIfnBN fof1AbYHQfX84hwQKqp3W6X GNvbGxh sDXvKnHsxPR8tS1rXNvapmv ac6zgooirZewrw7uxkm57mH 85X60uHVrnNBMtBWJnXACtI HZhbGln sl0doA5sRr6+KZGcgGT8nQA 0dU9oCrNjOaW8WOupE604Ec SnmGFuEtghy1nuz5kkwFm6W jIwJSIg pvCcoBvzOJZ4s7YxUt28L57 sIHdpZHRoPSIyMCUiIHZhbG eigr8jmC6fOj9+QA5gh9wuo n89jD85 dHI+ERUtLBD2eOzxWXphFEV pvW4rIIqgRjE4FVLbQmVrnS 53tONtKFfcFz1wnRextMknB W2kXITs rfuwe440YhQhp1mxLKMjhFH wAYstXXB1U33xv8L3FAJkNK CvAFG4hCB9pL8dzQsgutxrd GVmdDsg lcMclHylWTcnBWsaL625HUK wtIvzFwJiyBUhQ4mcdhYWZN 1lOjwvdGQ+RIRqMBK4bHwhI SdwYWRk wF5gXPIuC7q6ToIrZjB5QIh aS4SiyqK9DNCwfNHfIHCdfZ KVaK9eesydo9bftflzWgPoJ DAwMDt0 JSu4OCGwsLbjSdGbOXB2OjM 8HRE8nBKdyC6boWaljqhzvR 9wOyc+RklOOjwvdGQ+PHRkI QJ8aBzz PZsoHSDswS4gWIZjC7p2LzN vRhN2WZlwU5QofdD2BPUeuV VeEMEwkJJAnN0ymtkyp2ede jogIzAw GTCzXHi9PEv4BHKlaYbyZzB tGED0IhU9UNA0bMBkvN6gkL doyiwmuC4qXef+TVJOOjwvd GQ+PHRk JIL8gAozLKnrSNGtdU3iPQS aF0v4ZoSeFuP5YDlqT0Fhxt A0GFKjlZFeAHStrKHWcH8bo zdtl6ef jndjZxHrXCGzQOg7XDf2QOC hqJklJoLkNDQ2ZcD9VZT8lG EecL5ftVyptscadQ9sLwb+U JY5VTU9 DW96LK79D7HaYsaosELduYL +PHRhYmxlIHdpZHRoPScxMD FsCrLmwPfkRM8sJd3cOTKqY WNvbGxh cHNl (more content not included)... Normal [facility] Pre-Certification Formon Pre-Certification Form [id number]#[id number] D:127 Normal [facility] Auto Diffon 04-25-2021 Basophils/100 WBC (Bld) 0.6 % Normal 0.0-2.0 [facility] Comment on above: Order Comment: Order Added by Discern Expert. Performed By: #### 2 448047, 5685347, 34728546, 0763481, 3164369, 9212198 ####[address] [place] [address] Basophils/Leukocytes Auto (Bld) [Pure # fraction] 0.0 E9/L Normal 0.0-0.2 [facility] Comment on above: Order Comment: Order Added by Discern Expert. Performed By: #### 2 929996, 3815068, 65930169, 9072221, 8036815, 6808993 ####[address] [place] [address] Eosinophils/100 WBC (Bld) 3.3 % Normal 0.0-8.0 [facility] Comment on above: Order Comment: Order Added by Discern Expert. Performed By: #### 2 431984, 0644658, 43736203, 8101108, 2879029, 2070351 ####[address] [place] [address] Eosinophils/Leukocyt es Auto (Bld) [Pure # fraction] 0.2 E9/L Normal 0.0-0.5 [facility] Comment on above: Order Comment: Order Added by Discern Expert. Performed By: #### 2 860824, 7408737, 63765158, 9743516, 9364777, 9668281 ####[address] [address] Lymphocytes/100 WBC (Bld) 28.1 % Normal 14.0-50.0 [facility] Comment on above: Order Comment: Order Added by Discern Expert. Performed By: #### 2 907050, 8479114, 17120555, 0151780, 7428141, 4282499 ####[address] [place] [address] Lymphocytes/Leukocyt es Auto (Bld) [Pure # fraction] 1.8 E9/L Normal 1.0-4.0 [facility] Comment on above: Order Comment: Order Added by Discern Expert. Performed By: #### 2 478073, 5272382, 94487500, 0870235, 4694020, 8482148 ####[address] [place] [address] Monocytes/100 WBC (Bld) 7.5 % Normal 4.0-14.0 [facility] Comment on above: Order Comment: Order Added by Discern Expert. Performed By: #### 2 912402, 2174062, 57743626, 2389211, 2682750, 0471696 ####[facility] [address] [place] [address] Monocytes/Leukocytes Auto (Bld) [Pure # fraction] 0.5 E9/L Normal 0.2-1.0 [facility] Comment on above: Order Comment: Order Added by Discern Expert. Performed By: #### 2 102480, 7745609, 66236285, 8536826, 0589363, 0449801 ####[address] [place] [address] Neutrophils/100 WBC (Bld) 60.5 % Normal 36.0-75.0 [facility] Comment on above: Order Comment: Order Added by Discern Expert. Performed By: #### 2 704912, 3937708, 51638679, 2092924, 6503275, 5530575 ####[address] [address] Neutrophils/Leukocyt es Auto (Bld) [Pure # fraction] 3.9 E9/L Normal 2.0-7.5 [facility] Comment on above: Order Comment: Order Added by Discern Expert. Performed By: #### 2 875676, 2975390, 22950919, 9112174, 0172092, 1357900 ####[address] [place] [address] BMPon 04-25-2021 Creatinine [Mass/Vol] 1.1 mg/dL Normal 0.5-1.3 [facility] Comment on above: Performed By: #### 2 492683, 4305828, 18655486, 7770686, 3457919, 4241307 ####[facility] [address] [place] [address] Urea nitrogen [Mass/Vol] 20 mg/dL Normal 5-21 [facility] Comment on above: Performed By: #### 2 673112, 8120351, 81127458, 2198839, 0897701, 2465318 ####[address] [place] [address] Urea nitrogen/Creatinine [Mass ratio] 18 No Units Normal 10-20 [facility] Comment on above: Performed By: #### 2 485590, 0000420, 27919788, 0651990, 8251278, 8350651 ####[facility] [address] [place] [address] Anion gap [Moles/Vol] 14 mmol/L Normal 6-16 [facility] Comment on above: Performed By: #### 2 143898, 4527355, 20606817, 2406963, 0913667, 4596513 ####[facility] [address] [place] [address] Calcium [Mass/Vol] 9.3 mg/dL Normal 8.9-11.1 [facility] Comment on above: Performed By: #### 2 515086, 6606002, 35786265, 3528465, 4008765, 2963888 ####[facility] [address] [place] [address] Chloride [Moles/Vol] 101 mmol/L Normal 101-111 [facility] Comment on above: Performed By: #### 2 267566, 1852498, 20804753, 6421766, 4823336, 6160298 ####[facility] [address] [place] [address] CO2 [Moles/Vol] 26 mmol/L Normal 21-31 [facility] Comment on above: Performed By: #### 2 662933, 4417631, 16688729, 3889126, 5249052, 2711847 ####[facility] [address] [place] [address] Glucose [Mass/Vol] 90 mg/dL Normal 55-199 [facility] Comment on above: Result Comment: If t his glucose result represents a fasting glucose, interpretation should refer to the following reference range: 55-99 mg/dL Performed By: #### 2 294414, 6935446, 22608713, 6175563, 3714131, 4187669 ####[facility] [address] [place] [address] Potassium [Moles/Vol] 4.5 mmol/L Normal 3.5-5.3 [facility] Comment on above: Performed By: #### 2 360786, 6285269, 31898867, 0218064, 5844962, 5677044 ####[facility] [address] [place] [address] Sodium [Moles/Vol] 136 mmol/L Normal 135-145 [facility] Comment on above: Performed By: #### 2 833436, 7061824, 92620663, 3864443, 6308901, 5290236 ####[address] [place] [address] CBC w/ Auto Diffon Erythrocyte distribution width (RBC) [Ratio] 12.3 % Normal 10.9-14.2 [facility] Comment on above: Performed By: #### 2 938293, 7670252, 10789143, 7428280, 2486737, 8394422 ####[facility] [address] [place] [address] Hematocrit (Bld) [Volume fraction] 46.5 % Normal 37.7-49.0 [facility] Comment on above: Performed By: #### 2 529404, 3074896, 98031148, 9731391, 3206240, 6170833 ####[address] [place] [address] Hemoglobin (Bld) [Mass/Vol] 16.0 g/dL Normal 13.5-17.5 [facility] Comment on above: Performed By: #### 2 872768, 8906716, 47663833, 4813094, 3491610, 1882039 ####[address] [place] [address] MCH (RBC) [Entitic mass] 30.1 pg Normal 27.0-34.0 [facility] Comment on above: Performed By: #### 2 876684, 7701782, 19564079, 5495967, 1700165, 7389039 ####[address] MCHC (RBC) [Mass/Vol] 34.4 g/dL Normal 31.4-36.0 [facility] Comment on above: Performed By: #### 2 105254, 2734341, 72032464, 3522405, 7192796, 3283880 ####[address] MCV (RBC) [Entitic vol] 87.6 fL Normal 80.0-100.0 [facility] Comment on above: Performed By: #### 2 979883, 2596530, 21511272, 0119618, 8068908, 8319823 ####[address] Platelet mean volume (Bld) [Entitic vol] 7.4 fL Normal 6.4-10.8 [facility] Comment on above: Performed By: #### 2 525213, 3491596, 90648336, 1675908, 5987822, 5554563 ####[address] [address] Platelets (Bld) [#/Vol] 269.0 E9/L Normal 150.0-500.0 [facility] Comment on above: Performed By: #### 2 689998, 2273628, 15013395, 3980410, 8995963, 5881963 ####[address] RBC (Bld) [#/Vol] 5.3 E12/L Normal 4.3-5.9 [facility] Comment on above: Performed By: #### 2 892977, 0097618, 07796455, 9119219, 1335658, 9070525 ####[address] [address] WBC corrected for nucl RBC Auto (Bld) [#/Vol] 6.5 E9/L Normal 4.0-11.0 [facility] Comment on above: Performed By: #### 2 565818, 0592060, 07489067, 8249232, 4535640, 1164310 ####[facility] [address] [place] [address] CT Abdomen/Pelvis w/ Contras ton 04-25-2021 CT Abdomen/Pelvis w/ Contrast Exam Date/Time: 04/25/2021 10:21 EDT Reason for Exam: ABDOMINAL PAIN, ACUTE, NONLOCALIZED;Other (please specify) Report IMPRESSION: NO ACUTE INTRA-ABDOMINAL PROCESS. EXAM: CT Abdomen/Pelvis w/ Contrast History: Abdominal pain. Diarrhea and vomiting. Technique: Multiple contiguous axial images were obtained of the abdomen and pelvis from the level of the lung bases through the ischial tuberosities with IV contrast. Multiplanar reformats were obtained. Delayed images were obtained. Comparison: None available Findings: Lung bases are clear. The liver, gallbladder, spleen, stomach, pancreas, and adrenal glands are within normal limits. The kidneys enhance uniformly No urinary tract calculi or hydronephrosis. Urinary bladder is poorly distended but otherwise unremarkable. The prostate is within normal limits. Abdominal aorta is nonaneurysmal. No retroperitoneal or abdominal/pelvic lymphadenopathy. No small bowel obstruction. No overt colonic mass or pericolonic inflammation. Appendix is within normal limits. No free fluid or free air. Osseous structures of the abdomen/pelvis are within normal limits. All CT scans at this facility use dose modulation, iterative reconstruction, and/or weight based dosing when appropriate to reduce radiation dose to as low as reasonably achievable. FINAL REPORT Dictated: 04/25/2021 10:36 am Jeramie Adams DO Signed (Electronic Signature): 04/25/2021 10:36 am Signed by: Jeramie Adams DO Transcribed by: DOMINIC Technologist: JESS Technical Comments GFR (mL/min/1/73m2) >60 Contrast: Isovue 300 Contrast amount in ml's: 100 Rectal Contrast Given? No Normal [facility] Consent for Treatmenton 03-29 Consent for Treatment [id number]#1.00C D:127 Normal [facility] Consent for Treatment [id number]#1.00C D:127 Normal [facility] Discharge Instructionson Discharge Instructions [id number] D:127 Normal [facility] ED Clinical Summaryon 2020 ED Clinical Summary (Inserted Image. Uma ble to display) [place] [id number] ED Clinical Summary [facility]: [facility] Age[facility] 30 Years : 1990 Sex: Male Language: Urdu PCP: ALFONSO RACHEL CNP Marital Status: Visit Id: Visit Reason: Vomiting; Nausea; Back pain; GI bleeding; INTERNALLY BLEEDING Speciality: Acuity: 3 Enc Type: Emergency Med Service: Emergency Arrival: 04/25/2021 09:26:41 Discharge: 04/25/2021 11:25:52 LOS: 000 01:59 Checkin: 04/25/2021 09:26:41 Checkout: 04/25/2021 11:25:52 Dispo Type: Home (Routine DC) EVENTS: Event Name Event Status Request Date/Time Start Date/Time Complete Date/Time Arrive Complete 04/25/2021 09:26:41 04/25/2021 09:26:41 04/25/2021 09:26:41 Document Home Meds Request 04/25/2021 09:26:41 Triage Complete 04/25/2021 09:26:41 04/25/2021 09:36:57 04/25/2021 09:36:57 Bed Assign Complete 04/25/2021 09:28:16 04/25/2021 09:28:16 04/25/2021 09:28:16 Dr Exam Complete 04/25/2021 09:28:16 04/25/2021 09:35:03 04/25/2021 09:35:03 RN Exam Complete 04/25/2021 09:28:16 04/25/2021 09:52:17 04/25/2021 09:52:17 Registration Complete 04/25/2021 09:35:03 04/25/2021 09:54:48 04/25/2021 09:54:48 Meds Admin Complete 04/25/2021 09:40:47 04/25/2021 10:25:08 Pending Labs Complete 04/25/2021 09:40:47 04/25/2021 10:26:10 Lab Complete 04/25/2021 09:40:47 04/25/2021 10:26:10 CT Complete 04/25/2021 09:40:47 04/25/2021 09:52:58 04/25/2021 10:21:58 Dr Exam Complete 04/25/2021 09:42:36 04/25/2021 09:42:36 04/25/2021 09:42:36 Reg Complete Request 04/25/2021 09:54:48 Pending Labs Complete 04/25/2021 10:04:15 04/25/2021 10:04:15 04/25/2021 10:26:09 Lab Complete 04/25/2021 10:04:15 04/25/2021 10:04:15 04/25/2021 10:26:09 Pending Labs Complete 04/25/2021 10:06:49 04/25/2021 10:55:44 Lab Complete 04/25/2021 10:06:49 04/25/2021 10:55:44 Urine Collect Complete 04/25/2021 10:06:49 04/25/2021 10:55:44 Pending Labs Complete 04/25/2021 10:15:31 04/25/2021 10:15:31 04/25/2021 10:15:38 Lab Complete 04/25/2021 10:15:31 04/25/2021 10:15:31 04/25/2021 10:15:38 Discharge Complete 04/25/2021 11:15:09 04/25/2021 11:27:08 04/25/2021 11:27:08 Transfer Complete 04/25/2021 11:27:08 04/25/2021 11:27:08 04/25/2021 11:27:08 ADDRESS: [address] [place] [address] [facility] [phone] PHYS DOC NOTES: MEDICAL INFORMATION: Prescriptions Given: New Medications [id number], [address] [place], [place] [id number], [phone] omeprazole (omeprazole 40 mg Иван-DR) 1 Capsules By Mouth every day for 14 Days. Refills: 0. Medications to Continue with No Changes Other Medications ondansetron (ondansetron 4 mg Tab) 1 Tablets By Mouth every 6 hours as needed Nausea/Vomiting. Refills: 0. PATIENT EDUCATION INFORMATION: Instructions: Gastritis, Adult Follow up: With: Address: When: Julian Ross [address] [address] Business (1) In 3 days 04/28/2021 DIAGNOSIS: Gastritis Normal [facility] ED Note-Physicianon 04-25-20 ED Note-Physician Basic Information Time Seen: Dwayne Abraham PA-C 04/25/2021 09:35 Chief Complaint Coffe ground stool with diarrhea and vomiting. Rt sided lower abd pain. Also c/o musculoskeletal issues. History of Present Illness 30-year-old male comes into the ED for evaluation abdominal pain. Over last couple of months been having waxing waning right-sided abdominal pain. He points to the right upper quadrant area of maximal tenderness. There are some radiation to the back at times. No noted aggravating alleviating factors. He has had nausea with a few scattered episodes of emesis. Overall his appetite has been normal. No fever or chills. He saw his PCP yesterday was scheduled for outpatient testing performed, but states he noted some black stools this morning and that is what prompted his ED visit. He denies any fslm-kis-zdkvvmc medication use. No prescription medication use. No significant drug or alcohol use. Non-smoker. Remote history of ulcer, but patient has no other information regarding this diagnosis. He does state he had some weight loss. He is pain-free currently. Review of Systems A 10 point review of systems is negative except as noted above. Medical and Surgical History: Reviewed and noted Social history: Lives at home Tobacco: Denies Physical Exam Vitals & Measurements T: 36.9 ?C (Oral) HR: 87(Peripheral) RR: 18 BP: 133/80 SpO2: 100% HT: 177.8 cm HT: 177.8 cm WT: 76.7 kg WT: 76.7 kg BMI: 24.26 Nurses notes and vital signs reviewed and patient is not hypoxic. General: The patient appears well and in no significant distress Patient is resting comfortably on the exam bed. Skin: Warm, dry, no pallor noted. Head: Atraumatic. Neck: No JVD. Eye: Normal conjunctiva. Ears, Nose, Mouth, and Throat: Moist mucous membranes Cardiovascular: Strong distal pulses. Chest wall: Respiratory: Respirations are nonlabored. Back: Normal range of motion, no CVA tenderness. Musculoskeletal: Normal ROM with no gross deformity. Gastrointestinal: Abdomen soft throughout. There is no reproducible tenderness. Urological: Neurological: Awake and alert. No focal deficits. Follows commands. GCS 15. Psychiatric: Cooperative. Medical Decision Making Laboratory studies reviewed and noted. CT of the abdomen is negative for acute findings. Results are discussed with the patient. He has been dealing with these symptoms intermittently for months. Has had weight loss. Overall he appears well. His work-up and differential diagnosis was discussed at length. Clinically he is stable with no emergent findings. It was explained that he needs GI follow-up. He likely has gastritis or possibly peptic ulcer disease given his intermittent abdominal pain with intermittent episodes of black stools. He also states he had episode of some coffee-ground emesis but this was an isolated event. He states he been dealing with loose stools and irregular problems for months. At a minimum he needs endoscopy, possible colonoscopy and all of this is discussed. He is started on omeprazole. He is given GI follow-up. Patient was encouraged to return to the ED if symptoms worsen or change. Assessment/Plan Gastritis (K29.70: Gastritis, unspecified, without bleeding) Orders: omeprazole, 40 mg = 1 cap(s), Oral, Daily, X 14 day(s), # 14 cap(s), Refills(s) 0, Pharmacy: [id number], 177.8, cm, 04/25/21 9:36:00 EDT, Height/Length Dosing, 76.7, kg, 04/25/21 9:36:00 EDT, Weight Dosing Sodium Chloride 0.9% intravenous solution, 1,000 mL, Soln-IV, IV, Once, Stop date 04/25/21 9:40:00 EDT, STAT, Start date 04/25/21 9:40:00 EDT, mL/hr, Infuse over 61, minute(s) Automated Diff Basic Metabolic Panel CBC w/ Auto Diff CT Abdomen/Pelvis w/ Contrast eGFR Hepatic Function Panel Lipase Level UA With Cult Reflex Medications Administered Given [id number] [F], 1000 mL, IV Disposition Plan Patient Discharge Condition Disposition: Discharged home Condition: Improved and stable Counseled: Patient and/or family were counseled to workup, results, treatment plan and follow-up recommendations Discharge Prescription List Prescriptions omeprazole 40 mg Cap-DR, 40 mg= 1 cap(s), Oral, Daily Follow-up With When Contact Information Julian Ross In 3 days 04/28/2021 EDT [address] [place] [address]- Business (1) Additional Instructions: Patient Education Gastritis, Adult Attestation Patient seen and evaluated by the physician music library assistant. Attending physician was present in the emergency department and supervised care. This report was transcribed using voice recognition software. Every effort was made to ensure accuracy, however, inadvertently computerized manufacturing management associate mistakes may be present. Appropriate healthcare PPE was used in evaluating this patient. The patient was placed in a mask. The healthcare provider was wearing mask, gloves, googles and utilizing proper hand hygiene. All equipment was properly cleansed. Problem List/Past (more content not included)... Normal [facility] Comment on above: Result Comment: Elec tronically Signed By: Dwayne Abraham PA-C\.br\Date and Time Signed: 04/25/21 11:28 EDT\.br\Electronically Co-Signed By: Dionicio Diggs DO\.br\Date and Time Co-Signed: 04/25/21 17:54 EDT ED Patient Education Noteon 04-25-2021 ED Patient Education Note Gastroenterology Gastritis, Adult Gastritis is inflammation of the stomach. There are two kinds of gastritis: ? Acute gastritis. This kind develops suddenly. ? Chronic gastritis. This kind is much more common and lasts for a long time. Gastritis happens when the lining of the stomach becomes weak or gets damaged. Without treatment, gastritis can lead to stomach bleeding and ulcers. What are the causes? This condition may be caused by: ? An infection. ? Drinking too much alcohol. ? Certain medicines. These include steroids, antibiotics, and some iotq-tdw-faadflq medicines, such as aspirin or ibuprofen. ? Having too much acid in the stomach. ? A disease of the intestines or stomach. ? Stress. ? An allergic reaction. ? Crohn's disease. ? Some cancer treatments (radiation). Sometimes the cause of this condition is not known. What are the signs or symptoms? Symptoms of this condition include: ? Pain or a burning sensation in the upper abdomen. ? Nausea. ? Vomiting. ? An uncomfortable feeling of fullness after eating. ? Weight loss. ? Bad breath. ? Blood in your vomit or stools. In some cases, there are no symptoms. How is this diagnosed? This condition may be diagnosed with: ? Your medical history and a description of your symptoms. ? A physical exam. ? Tests. These can include: ? Blood tests. ? Stool tests. ? A test in which a thin, flexible instrument with a light and a camera is passed down the esophagus and into the stomach (upper endoscopy). ? A test in which a sample of tissue is taken for testing (biopsy). How is this treated? This condition may be treated with medicines. The medicines that are used vary depending on the cause of the gastritis: ? If the condition is caused by a bacterial infection, you may be given antibiotic medicines. ? If the condition is caused by too much acid in the stomach, you may be given medicines called H2 blockers, proton pump inhibitors, or antacids. Treatment may also involve stopping the use of certain medicines, such as aspirin, ibuprofen, or other NSAIDs. Follow these instructions at home: Medicines ? Take tvix-naj-lhqjyrb and prescription medicines only as told by your health care provider. ? If you were prescribed an antibiotic medicine, take it as told by your health care provider. Do not stop taking the antibiotic even if you start to feel better. Eating and drinking ? Eat small, frequent meals instead of large meals. ? Avoid foods and drinks that make your symptoms worse. ? Drink enough fluid to keep your urine pale yellow. Alcohol use ? Do not drink alcohol if: ? Your health care provider tells you not to drink. ? You are , may be , or are planning to become . ? If you drink alcohol: ? Limit your use to: ? 0?1 drink a day for women. ? 0?2 drinks a day for men. ? Be aware of how much alcohol is in your drink. In the [place] one drink equals one 12 oz bottle of beer (355 mL), one 5 oz glass of wine (148 mL), or one 1? oz glass of hard liquor (44 mL). General instructions ? Talk with your health care provider about ways to manage stress, such as getting regular exercise or practicing deep breathing, meditation, or yoga. ? Do not use any products that contain nicotine or tobacco, such as cigarettes and e-cigarettes. If you need help quitting, ask your health care provider. ? Keep all follow-up visits as told by your health care provider. This is important. Contact a health care provider if: ? Your symptoms get worse. ? Your symptoms return after treatment. Get help right away if: ? You vomit blood or material that looks like coffee grounds. ? You have black or dark red stools. ? You are unable to keep fluids down. ? Your abdominal pain gets worse. ? You have a fever. ? You do not feel better after one week. Summary ? Gastritis is inflammation of the lining of the stomach that can occur suddenly (acute) or develop slowly over time (chronic). ? This condition is diagnosed with a medical history, a physical exam, or tests. ? This condition may be treated with medicines to treat infection or medicines to reduce the amount of acid in your stomach. ? Follow your health care provider's instructions about taking medicines, making changes to your diet, and knowing when to call for help. This information is not intended to replace advice given to you by your health care provider. Make sure you discuss any questions you have with your health care provider. Document Released: 09/07/2002 Document Revised: 01/31/2019 Document Reviewed: 01/31/2019 [employer] Patient Education ? 2020 [employer] Normal [facility] ED Patient Summaryon 021 ED Patient Summary (Inserted Image. Uma ble to display) [address] [address] Patient Discharge Instructions Person Information Name: JAMA GOINS Age: 30 Years Arrival Date: 04/25/2021 09:26:41 Discharge Diagnosis: Gastritis Primary Care Physician: ALFONSO RACHEL CNP Provider Information Primary Provider: Dionicio Diggs DO Advanced Hoof And Shoe Inspector:Dwayne Abraham PA-C The exam and treatment you received in the Emergency Department were for an urgent problem and are not intended as complete care. It is important that you follow up with a doctor, nurse practitioner, or physician?s music library assistant for ongoing care. If your symptoms become worse or you do not improve as expected and you are unable to reach your usual health care provider, you should return to the Emergency Department. We are available 24 hours a day. JAMA GOINS has been given the following list of patient education materials, prescriptions and follow-up instructions: Follow-up Instructions: With: Address: When: Julian Ross [address] [place] [address] [place] [address] Business (1) In 3 days 04/28/2021 In the event that this physician does not participate in your insurance network, please consult with your insurance company to find a nearby participating provider. Patient Education Materials: Gastritis, Adult A MESSAGE TO ALL PATIENTS REGARDING OPIOIDS PRESCRIPTION OPIOIDS: WHAT YOU NEED TO KNOW Prescription opioids can be used to help relieve xqcwyqww-cp-ihfgph pain and are often prescribed following a surgery or injury, or for certain health conditions. These medications can be an important part of the treatment but also come with serious risks. It is important to work with your healthcare provider to make sure you are getting the safest, most effective care. WHAT ARE THE RISKS AND SIDE EFFECTS OF OPIOID USE? Prescription opioids carry serious risks of addiction and overdose, especially with prolonged use. An opioid overdose, often marked by slowed breathing, can cause sudden . The use of prescription opioids can have a number of side effects as well, even when taken as directed: ? Tolerance?meaning you might need to take more of the medication for the same pain relief ? Physical dependence?meaning you have symptoms of withdrawal when a medication is stopped ? Increased sensitivity to pain ? Constipation ? Nausea, vomiting, and dry mouth ? Sleepiness and dizziness ? Confusion ? Depression ? Low levels of testosterone that can result in lower sex drive, energy, and strength ? Itching and sweating RISKS ARE GREATER WITH: ? History of drug misuse, substance use disorder, or overdose ? Mental health conditions (such as depression or anxiety) ? Sleep apnea ? Older age (65 years and older) ? Avoid alcohol while taking prescription opioids. Also, unless specifically advised by your health care provider, medications to avoid include: ? Benzodiazepines (such as Xanax or Valium) ? Muscle relaxants (such as Soma or Flexeril) ? Hypnotics (such as Ambien or Lunesta) ? Other prescription opioids KNOW YOUR OPTIONS Talk to your health care provider about ways to manage your pain that don?t involve prescription opioids. Some of these options may actually work better and have fewer risks and side effects. Options may include: ? Pain relievers such as acetaminophen, ibuprofen, and naproxen ? Some medication that are also used for depression or seizures ? Physical therapy and exercise ? Cognitive behavioral therapy, a psychological, goal-directed approach, in which patients learn how to modify physical, behavioral, and emotional triggers of pain and stress. IF YOU ARE PRESCRIBED OPIOIDS FOR PAIN: ? Never take opioids in greater amounts or more often than prescribed. ? Follow up with your primary health care provider. o Work together to create a plan on how to manage your pain. o Talk about ways to help manage your pain that don?t involve prescription opioids. o Talk about any and all concerns and side effects. ? Help prevent misuse and abuse o Never sell or share prescription opioids. o Never use another person?s prescription opioids. ? Store prescription opioids in a secure place and out of reach of others (this may include visitors, children, friends, and family). ? Safely dispose of unused prescription opioids: Find your community drug take-back program or your pharmacy mail-back program, or flush them down the toilet, following guidance from the Food and Drug Administration (www.fda.gov/Drugs/Reso urcesForYou). ? Visit www.cdc.gov/drugoverdos e to learn about the risks of opioids abuse and overdose. ? If you believe you may be struggling with addiction, tell your health wild animal caretaker and ask for guidance or call [employer]A?S National Helpline at 9-798-470-HELP. v Source: [place] Department (more content not included)... Normal [facility] Hep Func Panelon 04-25-2021 Bilirubin.indirect [Mass or moles/Vol] UTC Abnormal 0.1-0.9 [facility] Comment on above: Result Comment: Resu lt verified by Discern Rule. Performed result UTC (Unable to Calculate) was sent as an Alpha code due the inability to calculate a valid numeric value. Performed By: #### 2 [id number], [id number], [id number], 7717496, 7489617, 3103998 ####[facility] [address] [place] [address] Albumin [Mass/Vol] 4.7 g/dL Normal 3.3-5.0 [facility] Comment on above: Performed By: #### 2 446131, 8158460, [id number], 3225092, 3474278, 0957055 ####[address] [address] Albumin/Globulin (S) [Mass conc ratio] 1.5 Normal 1.1-2.2 [facility] Comment on above: Performed By: #### 2 128900, 9002712, 40955149, 4653866, 5640378, 3210965 ####[address] [address] ALP [Catalytic activity/Vol] 32 Int._Unit/L Normal 21-98 [facility] Comment on above: Performed By: #### 2 099181, 0113538, 85752543, 4222479, 6484846, 9741726 ####[address] [address] ALT No additional P-5'-P [Catalytic activity/Vol] 15 Int._Unit/L Normal 6-46 [facility] Comment on above: Performed By: #### 2 066515, 4176047, 66629143, 8500355, 3616868, 3391642 ####[address] [place] [address] AST [Catalytic activity/Vol] 16 Int._Unit/L Normal 5-43 [facility] Comment on above: Performed By: #### 2 165683, 9435028, 06869921, 9021027, 6749827, 8883189 ####[address] [place] [address] Bilirubin [Mass/Vol] 0.8 mg/dL Normal 0.0-1.1 [facility] Comment on above: Performed By: #### 2 716468, 1524684, 26848342, 8894021, 4994372, 0729116 ####[facility] [address] [place] [address] Bilirubin.direct [Mass/Vol] mg/dL Normal 0.1-0.4 [facility] Comment on above: Performed By: #### 2 550598, 1851528, 21375126, 6270407, 6874400, 3531392 ####[facility] [address] [place] [address] Globulin (S) [Mass/Vol] 3.2 g/dL Normal 1.4-4.0 [facility] Comment on above: Performed By: #### 2 014639, 6501453, 68772750, 0377525, 8742531, 3883356 ####[facility] [address] [place] [address] Protein [Mass/Vol] 7.9 g/dL High 6.0-7.8 [facility] Comment on above: Performed By: #### 2 764634, 1699262, 81625365, 9128326, 5424062, 5100252 ####[facility] [address] [place] [address] Interdisciplinary Note - Soc ial Workeron 04-25-2021 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 This navigator entered patients room introduced myself. Let patient know with his [employer] there was a benefit available to him for being Covid vaccinated. Left information sheet with patient. This navigator remains available. Normal [facility] Lipase Levelon 04-25-2021 Lipase [Catalytic activity/Vol] 30 U/L Normal 13-58 [facility] Comment on above: Performed By: #### 2 465950, 6660928, 69252049, 7095387, 5389562, 5374362 ####[facility] [address] [place] [address] UA With Cult Reflexon 2020 Bilirubin Ql (U) Negative Normal Negative [facility] Comment on above: Performed By: #### 1 [id number] ####[facility] [address] [place] [address] Clarity (U) CLEAR Normal Clear [facility] Comment on above: Performed By: #### 1 [id number] ####[facility] [address] [place] [address] Color (U) YELLOW Normal Yellow [facility] Comment on above: Performed By: #### 1 0456410 ####[facility] [address] [place] [address] Epithelial cells.squamous LM.HPF (Urine sed) [#/Area] 0-2 Normal 0-2 [facility] Comment on above: Performed By: #### 1 5861197 ####[facility] [address] [place] [address] Glucose Test strip (U) [Mass/Vol] Negative Normal Negative [facility] Comment on above: Performed By: #### 1 [id number] ####[facility] [address] [place] [address] Hemoglobin Ql (U) Negative Normal Negative [facility] Comment on above: Performed By: #### 1 4656446 ####[facility] [address] [place] [address] Ketones (U) [Mass/Vol] Negative Normal Negative [facility] Comment on above: Performed By: #### 1 1551599 ####[facility] [address] [place] [address] [place].plasma/Lithi um.RBC (Bld) [Mass ratio] 0-3 Normal 0-3 [facility] Comment on above: Performed By: #### 1 [id number] ####[facility] [address] [place] [address] Mucus Ql (Urine sed) TRACE Normal [facility] Comment on above: Performed By: #### 1 0688462 ####[facility] [address] [place] [address] Nitrite Ql (U) Negative Normal Negative [facility] Comment on above: Performed By: #### 1 4382862 ####[address] [address] pH (U) 6.0 [pH] Invalid Interpretation Code 5.0-9.0 [facility] Comment on above: Performed By: #### 1 4409557 ####[address] [address] Protein (U) [Mass/Vol] Negative Normal Negative [facility] Comment on above: Performed By: #### 1 7552145 ####[address] [address] Specific gravity (U) [Rel density] 1.015 Invalid Interpretation Code 1.005-1.030 [facility] Comment on above: Performed By: #### 1 7019312 ####[address] [address] Type of Urine collection method Clean Catch Normal [facility] Comment on above: Performed By: #### 1 [id number] ####[address] [address] Urobilinogen Qn (U) 0.2 {Mickey'U}/dL Normal 0.0-1.0 [facility] Comment on above: Performed By: #### 1 5887515 ####[address] [address] WBC Auto Ql (U) Negative Normal Negative [facility] Comment on above: Performed By: #### 1 4943216 ####[address] [address] WBC LM.HPF (Urine sed) [#/Area] 0-5 Normal 0-5 [facility] Comment on above: Performed By: #### 1 [id number] ####[address] [address] XR Spine Cervical 4 or 5 Vie wson 07-30-2021 XR Spine Cervical 4 or 5 Views Exam Date/Time: 04/25/2021 12:04 EDT Reason for Exam: M54.5, Low back pain;Neck Pain Report IMPRESSION: NEGATIVE CERVICAL SPINE. CLINICAL HISTORY: Neck Pain, M54.5, Low back pain COMPARISON: NONE AVAILABLE FINDINGS: Routine five views of the cervical spine demonstrate no evidence of a fracture, subluxation or dislocation of the cervical vertebrae. Cervical disc spaces appear well preserved. Prevertebral soft tissues unremarkable. There is no encroachment on the bilateral neuroforamina. Odontoid process is unremarkable. FINAL REPORT Dictated: 04/25/2021 1:13 pm Nathan Richardson M.D. Signed (Electronic Signature): 04/25/2021 1:13 pm Signed by: Nathan Richardson M.D. Transcribed by: DOMINIC Technologist: ALVARO [facility] XR Spine Lumbosacral Minimum 4 Viewson 04-25-2021 XR Spine Lumbosacral Minimum 4 Views Exam Date/Time: 04/25/2021 12:04 EDT Reason for Exam: M54.5, Low back pain;Pain, Non Traumatic Report IMPRESSION: NEGATIVE LUMBOSACRAL SPINE SERIES. CLINICAL HISTORY: Pain, Non Traumatic, M54.5, Low back pain COMPARISON: NONE FINDINGS: 6 views of the lumbosacral spine demonstrate no evidence of a fracture, subluxation, bone or joint abnormality. Intervertebral disc spaces are well-maintained. There is a quite distended contrast filled urinary bladder. There are contrast in the bilateral pelvicalyceal systems. FINAL REPORT Dictated: 04/25/2021 1:16 pm Nathan Richardson M.D. Signed (Electronic Signature): 04/25/2021 1:16 pm Signed by: Nathan Richardson M.D. Transcribed by: DOMINIC Technologist: ALVARO [facility] XR Spine Thoracic 3 Viewson 04-25-2021 XR Spine Thoracic 3 Views Exam Date/Time: 04/25/2021 12:04 EDT Reason for Exam: M54.5, Low back pain;Pain, Non Traumatic Report IMPRESSION: NEGATIVE THORACIC SPINE, EXCEPT FOR MILD DEXTROSCOLIOSIS OF THE UPPER MIDDLE DORSAL SPINE. CLINICAL INFORMATION: Pain, Non Traumatic, M54.5, Low back pain COMPARISON: NONE. FINDINGS: number of views views of the thoracic spine were obtained. The thoracic spine appears normal without evidence of fracture or subluxation. There is mild dextroscoliosis of upper middle dorsal spine. There is no paraspinal mass seen. FINAL REPORT Dictated: 04/25/2021 1:19 pm Nathan Richardson M.D. Signed (Electronic Signature): 04/25/2021 1:19 pm Signed by: Nathan Richardson M.D. Transcribed by: DOMINIC Technologist: ALVARO Normal [facility] eGFRon 04-25-2021 GFR/1.73 sq M.predicted among blacks MDRD (S/P/Bld) [Vol rate/Area] mL/min/{1.73_m2} Normal >=59 [facility] Comment on above: Order Comment: Order added by Discern Expert. Result Comment: eGFR is race adjusted. AA=. Performed By: #### 2 839392, 5093867, 20568885, 9362351, 7949417, 5053982 ####[facility] [address] [place] [address] GFR/1.73 sq M.predicted among non-blacks MDRD (S/P/Bld) [Vol rate/Area] mL/min/{1.73_m2} Normal >=59 [facility] Comment on above: Order Comment: Order added by Discern Expert. Result Comment: Client Experience Specialist trung kidney disease could be indicated at eGFR's of less than 60 mL/min/1.73m2. Kidney failure is indicated at less than 15 mL/min/1.73m2. Performed By: #### 2 663888, 3501621, 84832852, 3379907, 0891873, 9659198 ####[facility] [address] [place] [address] Ambulatory Clinical Summaryo n 04-24-2021 Ambulatory Clinical Summary {[id number]-[id number] [id number] Normal [facility] Ambulatory Clinical Summary {[id number] [id number]-[id number] Normal [facility] Amylaseon 04-24-2021 Amylase [Catalytic activity/Vol] 33 U/L Normal 25-157 [facility] Comment on above: Performed By: #### 2 770671, 8264963, 9775899, 6985959, 8425317, 49724614 ####[facility] [address] [place] [address] Auto Diffon 04-24-2021 Basophils/100 WBC (Bld) 0.9 % Normal 0.0-2.0 [facility] Comment on above: Order Comment: Order Added by Discern Expert. Performed By: #### 2 512915, 3119260, 4784862, 1998049, 5106335, 59448093 ####[address] [address] Basophils/Leukocytes Auto (Bld) [Pure # fraction] 0.1 E9/L Normal 0.0-0.2 [facility] Comment on above: Order Comment: Order Added by Discern Expert. Performed By: #### 2 835169, 2248927, 0634255, 2138054, 1441448, 09054560 ####[facility] [address] [place] [address] Eosinophils/100 WBC (Bld) 2.7 % Normal 0.0-8.0 [facility] Comment on above: Order Comment: Order Added by Discern Expert. Performed By: #### 2 667652, 4523086, 1932471, 8895071, 4473430, 17360569 ####[facility] [address] [place] [address] Eosinophils/Leukocyt es Auto (Bld) [Pure # fraction] 0.2 E9/L Normal 0.0-0.5 [facility] Comment on above: Order Comment: Order Added by Discern Expert. Performed By: #### 2 212624, 3047482, 4964993, 1041965, 2985516, 77877192 ####[address] [address] Lymphocytes/100 WBC (Bld) 25.1 % Normal 14.0-50.0 [facility] Comment on above: Order Comment: Order Added by Discern Expert. Performed By: #### 2 972689, 2599347, 4253724, 7579909, 8825609, 85388564 ####[address] [address] Lymphocytes/Leukocyt es Auto (Bld) [Pure # fraction] 1.7 E9/L Normal 1.0-4.0 [facility] Comment on above: Order Comment: Order Added by Discern Expert. Performed By: #### 2 590479, 6843360, 6425793, 8017027, 1719609, 48872486 ####[address] [address] Monocytes/100 WBC (Bld) 6.6 % Normal 4.0-14.0 [facility] Comment on above: Order Comment: Order Added by Discern Expert. Performed By: #### 2 498689, 1652169, 9907949, 5911242, 6286700, 01684916 ####[address] [address] Monocytes/Leukocytes Auto (Bld) [Pure # fraction] 0.4 E9/L Normal 0.2-1.0 [facility] Comment on above: Order Comment: Order Added by Discern Expert. Performed By: #### 2 543865, 4212045, 7789936, 3998809, 9075111, 77682596 ####[address] [address] Neutrophils/100 WBC (Bld) 64.7 % Normal 36.0-75.0 [facility] Comment on above: Order Comment: Order Added by Discern Expert. Performed By: #### 2 704864, 2020803, 4039471, 5794840, 1211168, 09287480 ####[address] [place] [address] Neutrophils/Leukocyt es Auto (Bld) [Pure # fraction] 4.3 E9/L Normal 2.0-7.5 [facility] Comment on above: Order Comment: Order Added by Discern Expert. Performed By: #### 2 291873, 7823052, 8840147, 8116502, 0694646, 98881243 ####[facility] [address] [place] [address] CBC w/ Auto Diffon 1 Erythrocyte distribution width (RBC) [Ratio] 12.2 % Normal 10.9-14.2 [facility] Comment on above: Performed By: #### 2 300634, 5489965, 7489122, 3007514, 2714476, 86166133 #### [facility] [address] [place] [address] Hematocrit (Bld) [Volume fraction] 46.4 % Normal 37.7-49.0 [facility] Comment on above: Performed By: #### 2 144017, 5657524, 5885851, 7973952, 2342579, 10914357 #### [facility] [address] [place] [address] Hemoglobin (Bld) [Mass/Vol] 15.9 g/dL Normal 13.5-17.5 [facility] Comment on above: Performed By: #### 2 131209, 6218732, 0054421, 8116270, 2446599, 64669660 #### [facility] [address] [place] [address] MCH (RBC) [Entitic mass] 30.1 pg Normal 27.0-34.0 [facility] Comment on above: Performed By: #### 2 520991, 9482514, 9830390, 2686308, 3766471, 85818576 #### [facility] [address] [place] [address] MCHC (RBC) [Mass/Vol] 34.3 g/dL Normal 31.4-36.0 [facility] Comment on above: Performed By: #### 2 382508, 5631076, 7376116, 8195473, 4109288, 13533412 #### [facility] [address] [place] [address] MCV (RBC) [Entitic vol] 87.8 fL Normal 80.0-100.0 [facility] Comment on above: Performed By: #### 2 326145, 3973943, 2827487, 8352913, 4860805, 12262529 #### [facility] [address] [place] [address] Platelet mean volume (Bld) [Entitic vol] 8.2 fL Normal 6.4-10.8 [facility] Comment on above: Performed By: #### 2 364734, 1395593, 0712855, 3296244, 9139898, 68110413 #### [facility] [address] [place] [address] Platelets (Bld) [#/Vol] 287.0 E9/L Normal 150.0-500.0 [facility] Comment on above: Performed By: #### 2 873288, 7924084, 4970630, 3213518, 7507813, 00956459 #### [facility] [address] [place] [address] RBC (Bld) [#/Vol] 5.3 E12/L Normal 4.3-5.9 [facility] Comment on above: Performed By: #### 2 898614, 6514056, 0710459, 7458286, 1183430, 93867395 #### [facility] [address] [place] [address] WBC corrected for nucl RBC Auto (Bld) [#/Vol] 6.7 E9/L Normal 4.0-11.0 [facility] Comment on above: Performed By: #### 2 747886, 7514864, 2916071, 6833823, 9947625, 24843625 #### [facility] [address] [place] [address] CMPon 04-24-2021 Urea nitrogen [Mass/Vol] 19 mg/dL Normal 5-21 [facility] Comment on above: Performed By: #### 2 487377, 2821266, 5140230, 4690762, 0501806, 72380747 ####[facility] [address] [place] [address] Urea nitrogen/Creatinine [Mass ratio] 17 No Units Normal 10-20 [facility] Comment on above: Performed By: #### 2 507267, 0696632, 3259190, 3684259, 5207581, 77625899 ####[address] [place] [address] Albumin [Mass/Vol] 4.8 g/dL Normal 3.3-5.0 [facility] Comment on above: Performed By: #### 2 615513, 3598044, 5859139, 8568011, 1898766, 99842356 ####[facility] [address] [place] [address] Albumin/Globulin (S) [Mass conc ratio] 1.7 Normal 1.1-2.2 [facility] Comment on above: Performed By: #### 2 698662, 4041833, 9997161, 1753952, 0206013, 29493780 ####[address] [place] [address] ALP [Catalytic activity/Vol] 33 Int._Unit/L Normal 21-98 [facility] Comment on above: Performed By: #### 2 470336, 3555131, 1875904, 5744613, 7645827, 57580874 ####[address] [place] [address] ALT No additional P-5'-P [Catalytic activity/Vol] 11 Int._Unit/L Normal 6-46 [facility] Comment on above: Performed By: #### 2 607035, 3888114, 1110652, 9990812, 1005130, 88167991 ####[facility] [address] [place] [address] Anion gap [Moles/Vol] 21 mmol/L High 6-16 [facility] Comment on above: Performed By: #### 2 792116, 1455327, 1472299, 6227129, 1183127, 09060437 ####[facility] [address] [place] [address] AST [Catalytic activity/Vol] 17 Int._Unit/L Normal 5-43 [facility] Comment on above: Performed By: #### 2 690947, 5546771, 2783225, 6934331, 5481952, 53855762 ####[facility] [address] [place] [address] Bilirubin [Mass/Vol] 0.9 mg/dL Normal 0.0-1.1 [facility] Comment on above: Performed By: #### 2 279686, 2138982, 6407198, 3948174, 4395377, 57507741 ####[facility] [address] [place] [address] Calcium [Mass/Vol] 9.7 mg/dL Normal 8.9-11.1 [facility] Comment on above: Performed By: #### 2 290820, 0634035, 2823097, 7140317, 7717758, 09080558 ####[facility] [address] [place] [address] Chloride [Moles/Vol] 98 mmol/L Low 101-111 [facility] Comment on above: Performed By: #### 2 122889, 7504645, 2138300, 4154885, 4245139, 37751390 ####[facility] [address] [place] [address] CO2 [Moles/Vol] 23 mmol/L Normal 21-31 [facility] Comment on above: Performed By: #### 2 748547, 6678891, 7855490, 6303098, 4510316, 33788560 ####[facility] [address] [place] [address] Creatinine [Mass/Vol] 1.1 mg/dL Normal 0.5-1.3 [facility] Comment on above: Performed By: #### 2 434871, 7157513, 0274559, 9046013, 1717441, 15945909 ####[facility] [address] [place] [address] Globulin (S) [Mass/Vol] 2.8 g/dL Normal 1.4-4.0 [facility] Comment on above: Performed By: #### 2 422853, 7963620, 4819076, 0611850, 4257864, 44730490 ####[facility] [address] [place] [address] Glucose [Mass/Vol] 74 mg/dL Normal 55-199 [facility] Comment on above: Result Comment: If t his glucose result represents a fasting glucose, interpretation should refer to the following reference range: 55-99 mg/dL Performed By: #### 2 729661, 1650310, 7033141, 3816433, 2928452, 71666904 ####[facility] [address] [place] [address] Potassium [Moles/Vol] 3.9 mmol/L Normal 3.5-5.3 [facility] Comment on above: Performed By: #### 2 312117, 9984692, 6290411, 8549727, 5165932, 33451399 ####[facility] [address] [place] [address] Protein [Mass/Vol] 7.6 g/dL Normal 6.0-7.8 [facility] Comment on above: Performed By: #### 2 319322, 8611387, 4501034, 2840300, 8414556, 43002109 ####[facility] [address] [place] [address] Sodium [Moles/Vol] 138 mmol/L Normal 135-145 [facility] Comment on above: Performed By: #### 2 863855, 3252727, 9199443, 7630767, 3306999, 17600017 ####[facility] [address] [place] [address] Family Medicine Office/Clini c Noteon 04-24-2021 Family Medicine Office/Clinic Note Chief Complaint new pt est care HPI Staff Jama is a 30 yr old male who presents today to est care. He would like to discuss R lower side pain that onset approx 6 months ago. He states he has been having frequent diarrhea, loss of appetite, stomach pain, sweats, chills and unintended weight loss. He has never had any imaging done when he went to [facility] and [facility] for pain. Thinks maybe R sided back pain and neck pain could be related to side pain. Hx of Ulcer and C diff. History of Present Illness JAMA GOINS is a 30 Years Male who presents for concerns of right lower back/side pain that has been present x 6 months. Patient states has also had GI symptoms that consist of frequent diarrhea that patient states is up to 6 episodes per day, loss of appetite, back pain/discomfort, chills and sweats, and unintentional weight loss. Patient states also recently started with vomiting with eating certain foods such as any foods that are processed are oily/greasy foods. States that he does do okay with lean meats, cheeses, green. Pt. did see [facility] and [facility] providers for this issues states never did see a GI specialist. Denies any bloody or dark-colored/coffee-ngoc und colored stools or emesis. States stools are mostly runny and yellow in color. Does have a history of ulcer and C. difficile in the past. Denies any recent use of antibiotics or any exposure to individuals with similar symptoms. Patient denies any fevers, shortness of breath/trouble breathing, chest pain, headaches. Patient states he has had pain up in the cervical region of neck since he does feel a lump on the right side of cervical region at times, and as stated above does have pain in the right lower back/flank region. Denies any known injury to the area. Denies any loss of bowel or bladder, numbness or tingling going down right extremity, or any issues with ambulation. Patient states has also noticed urinary symptoms over the last week or 2 they consist of dysuria, malodorous urine, urinary frequency, had darker urine than normal. Denies any penile drainage or rashes in the genital region. I have reviewed and verified the staff HPI to be accurate for this encounter. Review of Systems PHQ Score Initial Depression Screen Score: 0 ROS - Provider Constitutional: fever no, chills no, sweats no Skin: rash no, lesions no Eye: eye pain no, discharge no, light sensitivity no, eye irritation no, double vision no, blurring no, vision loss no ENMT: ear pain no, ear drainage no, sore throat no, nasal congestion no , nasal drainage no hoarseness no Respiratory: chest discomfort no, shortness of breath no, cough no, orthopnea no, wheezing no Cardiovascular: chest pain no, palpitations no, edema no Genitourinary: dysuria yes, hematuria no, discharge no, urinary frequency yes, urinary urgency no, + odiferous urine, + dark urine Gastrointestinal: nausea no, vomiting yes, diarrhea yes, GI bleeding no Musculoskeletal: back pain yes, right side back pain, trauma no Neurologic: headache no, dizziness no, numbness/tingling no, weakness no Physical Exam Vitals & Measurements HR: 66(Peripheral) RR: 16 BP: 122/80 SpO2: 98% HT: 178 cm HT: 178.0 cm WT: 76.0 kg WT: 76.0 kg BMI: 23.99 General: Well developed, well nourished, in no acute distress Mouth: Mucous membranes moist. Normal oropharynx, and posterior pharynx without lesions or exudates. Tongue normal Neck: Neck supple. No masses or palpable cervical nodes. Trachea midline. Thyroid without nodules, masses, tenderness, or enlargement Lungs: Normal respiratory effort and clear to auscultation Cardio: Regular rate and rhythm, normal S1 and S2, no murmur, no rub Abdomen: Soft, non-distended, non-tender to palpation, No rebound or guarding, tenderness, No masses palpated, Normal bowel sounds. Vallecillo's sign negative, Rovsing's sign negative Musculoskeletal: Pt. moves well about the room, movements without hesitation . No deformity/bony step off noted to back, there is pain noted to the lumbar/sacral region on right side of back with palpation over the spine primary erector muscle, no spasm noted. No erythema, edema, or ecchymosis. Negative axial load, axial twist. Sitting knee extension. Normal range of motion. Joints normal. No erythema, edema, effusion, or ecchymosis Neurologic: Grossly normal Skin: No rashes, ulcerations, or suspicious lesions to visible skin Mental Status: Alert and oriented x3. Normal mood and affect Assessment/Plan 1. Unintentional weight loss (R63.4: Abnormal weight loss) We'll get CT of abdomen, and refer to GI as patient states has lost nearly 20 pounds since symptoms started. We'll also use as needed ondansetron for nausea/vomiting. Patient should continue to monitor symptoms closely if any new symptoms present or symptoms worsen please return to office as noted. If symptoms become severe or any signs of GI bleeding patient should refer to ED for further evaluation/management. Did draw labs in office today Ordered: CT Ab (more content not included)... Normal [facility] Comment on above: Result Comment: Elec tronically Signed By: VIRGINIE CASTRO, ALFONSO Ayala\.br\Date and Time Signed: 04/24/21 10:40 EDT Lipase Levelon 04-24-2021 Lipase [Catalytic activity/Vol] 27 U/L Normal 13-58 [facility] Comment on above: Performed By: #### 2 920054, 8835740, 7567438, 3847232, 6175706, 65492136 ####[facility] [address] [place] [address] Patient Educationon 04-24-20 21 Patient Education Malnutrition Many of us think of malnutrition as a condition in which there is not enough to eat. Malnutrition is actually any condition where nutrition is poor. This means: ? Too much to eat as we see in conditions of obesity. ? Too little to eat with starvation. The following information is only for the malnourished with dietary deficiencies (poor diet). CAUSES Under-nutrition can result from: ? Poor intake. ? Malabsorption ? ? Bleeding ? Diarrhea ? Old age. ? Kidney failure. ? Infancy ? Poverty ? Infection ? Adolescence ? Excessive sweating ? Drug addiction ? ? flight engineer helicopter. Under-nutrition comes anytime the demand is more than the intake. SYMPTOMS The problems depend on what type of malnutrition is present. Some general symptoms include: ? Fatigue. ? Dizziness. ? Fainting ? Weight loss. ? Poor immune response. ? Lack of menstruation. ? Lack of growth in children. ? Hair loss. DIAGNOSIS Your caregiver will usually suspect malnutrition based on results of your: ? Medical and dietary history. ? Physical exam. This will often include measurements of your BMI (body mass index). ? Perhaps some blood tests. These may include: plasma levels of nutrients and nutrient-dependent substances, such as: ? Hemoglobin ? Thyroid hormones ? Transferrin ? Albumin RISK FACTORS Persons in the following circumstances may be at risk of malnutrition. ? Infants and children are at risk of under-nutrition. This is because of their high demand for energy and essential nutrients. Protein-energy malnutrition in children consuming inadequate amounts of protein, calories, and other nutrients is a particularly severe form of under-nutrition that delays growth and development. This includes Marasmus and Kwashiorkor. ? Hemorrhagic disease of the is a life-threatening disorder. This is due to a lack of vitamin K, iron, folic acid, vitamin C, copper, zinc, and vitamin A. This may occur in inadequately fed infants and children. ? In adolescence , nutritional requirements increase because they are growing. Anorexia nervosa, a form of starvation, may affect adolescents. ? and . Requirements for all nutrients are increased during and . ? Abnormal diets, such as pica (the consumption of nonnutritive substances, such as mauricio and charcoal), are common in . ? Anemia due to folic acid deficiency is common in women. This is especially true for those who have taken oral contraceptives. Folic acid supplements are now recommended for women. Folic acid prevents neural tube defects (spina bifida ) in children. ? Fsemgm-ehj-dagd infants may develop vitamin B12 deficiency if the mother is a vegan. ? An alcoholic mother may have a handicapped and stunted child with alcohol syndrome. This is due to the effects of alcohol on the fetus. Do not drink during . ? Old age : A weakened sense of taste and smell, loneliness, physical and mental handicaps, immobility, and chronic illness can hurt the food intake in the elderly. Absorption is reduced. This may add to iron deficiency, calcium and bone problems and also a softening of the bones due to lack of vitamin D. This is also made worse by not being in the sun. ? With aging, we loose lean body mass. These changes and a reduction in physical activity result in lower energy and protein requirements compared with those of younger adults. ? Chronic disease including malabsorption states (including those resulting from surgery) tend to impair the absorption of fat-soluble vitamins, vitamin B12, calcium, and iron. ? Liver disease impairs the storage of vitamins A and B12. It also interferes with the metabolism of protein and energy sources. ? Kidney disease may cause deficiencies of protein, iron, and vitamin D. ? Cancer and AIDS may cause anorexia. This is a loss of appetite. ? Vegetarian diet. The most common form of this type of diet is when meat and fish are not eaten, but eggs and dairy products are eaten. Iron deficiency is the only risk. Ovo-lacto vegetarians tend to live longer and to develop fewer chronic disabling conditions than their meat-eating peers. However, their lifestyle usually includes regular exercise and abstention from alcohol and tobacco. This may contribute to better health. Vegans consume no animal products and are susceptible to vitamin B12 deficiency. Yeast extracts and oriental-style fermented foods provide this vitamin. Intake of calcium, iron, and zinc also tends to be low. A fruitarian diet (eat only fruit) is deficient in protein, salt, and many micronutrients. This is not recommended. ? Fad diets : Many commercial diets are claimed to enhance well-being or reduce weight. A physician should be alert to early evidence of nutrient deficiency or toxicity in patients on these diets. Such diets have resulted in vitamin, mineral, and protein deficiency states and card (more content not included)... Normal [facility] eGFRon 04-24-2021 GFR/1.73 sq M.predicted among blacks MDRD (S/P/Bld) [Vol rate/Area] mL/min/{1.73_m2} Normal >=59 [facility] Comment on above: Order Comment: Order added by Discern Expert. Result Comment: eGFR is race adjusted. AA=. Performed By: #### 2 889277, 8471630, 5914180, 0634925, 8145610, 13293076 ####[facility] [address] [place] [address] GFR/1.73 sq M.predicted among non-blacks MDRD (S/P/Bld) [Vol rate/Area] mL/min/{1.73_m2} Normal >=59 [facility] [facility] Comment on above: Order Comment: Order added by Discern Expert. Result Comment: Client Experience Specialist trung kidney disease could be indicated at eGFR's of less than 60 mL/min/1.73m2. Kidney failure is indicated at less than 15 mL/min/1.73m2. Performed By: #### 2 [id number] ####[facility] [id number] [place] [address] Vital Signs Date Time Vital Sign Value Performing Clinician Miya barahona 05-03-2023 09:30-0400 Diastolic blood pressure 67 mm[Hg] Thelma Martinez Jr., DO Work Phone: [facility] 05-03-2023 09:30-0400 Heart rate 63 /min Thelma Martinez Jr., DO Work Phone: [facility] 05-03-2023 09:30-0400 SaO2% (BldA) [Mass fraction] 98 % Thelma Martinez Jr., DO Work Phone: [facility] 05-03-2023 09:30-0400 Systolic blood pressure 114 mm[Hg] Thelma Martinez Jr., DO Work Phone: [facility] 05-03-2023 09:15-0400 Respiratory rate 16 /min Thelma Martinez Jr., DO Work Phone: [facility] 05-03-2023 08:03-0400 Body temperature 97.39 [degF] Thelma Martinez Jr., DO Work Phone: [facility] 04-02-2023 17:11-0400 Diastolic blood pressure 84 mm[Hg] Johanna Jacques MD Work Phone: [facility] 04-02-2023 17:11-0400 Systolic blood pressure 128 mm[Hg] Johanna Jacques MD Work Phone: [facility] 04-02-2023 16:28-0400 Heart rate 73 /min Johanna Jacques MD Work Phone: [facility] Encounters Encounter Date Encounter Type Care Provider Facility Start: 03-10-2024 End: 03-10-2024 ambulatory TABITHA WILLIS Facility:[facility] Start: 03-10-2024 End: 03-10-2024 Patient encounter procedure Tabitha Willis OD Work Phone: Ophthalmology Comment on above: Other chronic allerg ic conjunctivitis of both eyes (Primary Dx) Start: 11-30-2023 End: 11-30-2023 ambulatory Oneal Roberto Facility:[facility] Start: 10-26-2023 End: 10-26-2023 ambulatory MIRANDA MUIR Facility:[facility] Start: 09-28-2023 End: 09-28-2023 ambulatory Ivan Mendoza Facility:[facility] Start: 09-28-2023 Office outpatient ne w 30 minutes Ivan Mendoza [facility] Start: 09-28-2023 End: 09-28-2023 ambulatory PHYSICIAN MARCELA [facility] Work Phone: Start: 09-28-2023 End: 09-28-2023 Patient encounter procedure PHYSICIAN MARCELA [facility] Start: 09-15-2023 End: 09-15-2023 ambulatory [facility] Facility:[facility] Start: 09-15-2023 End: 09-15-2023 Subsequent hospital visit by physician Angelica [facility] Comment on above: Mid back pain [M54.9 ] Start: 09-13-2023 End: 09-13-2023 ambulatory [facility] Facility:[facility] Start: 09-13-2023 Encounter for genera l adult medical examination without abnormal findings MIRANDA MUIR [facility] Start: 09-13-2023 End: 09-13-2023 ambulatory DOROTHY WALDRON Facility:[facility] Start: 09-06-2023 End: 09-06-2023 ambulatory Marc Jacobson PT Work Phone: Terence Rocha [facility] Physical Therapy Comment on above: Acute pain of left k nee (Primary Dx) Start: 08-26-2023 End: 08-26-2023 ambulatory Marc Jacobson PT Work Phone: Terence Rocha [facility] Physical Therapy Comment on above: Sprain of medial col lateral ligament of left knee, initial encounter; Acute pain of left knee Start: 07-15-2023 Telephone encounter Gabi Concepción G irgis DO Work Phone: Pain Management Start: 07-06-2023 ambulatory Gabi E Girgi s DO Work Phone: Pain Management Comment on above: pain questionnaire Start: 07-06-2023 E-mail encounter fro m caregiver Gabi Concepción Gabi DO Work Phone: [facility] Start: 06-16-2023 ambulatory Baldo De MD Work Phone: Cardiology Comment on above: 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, 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 Start: 06-10-2023 Telephone encounter Gabi E G irgis DO Work Phone: Pain Management Comment on above: Appointment (Pain) Start: 06-03-2023 ambulatory Gabi E Girgi s DO Work Phone: Pain Management Comment on above: General Questioniare Start: 06-03-2023 E-mail encounter fro m caregiver Gabi E Gabi DO Work Phone: [facility] Start: 05-11-2023 End: 05-11-2023 Subsequent hospital visit by physician Angelica Dang [facility] Work Phone: Radiology Comment on above: Pain in left mcclelland [M 79.662] Start: 05-11-2023 End: 05-11-2023 ambulatory SVITLANA LI Facility:[facility] Start: 05-11-2023 End: 05-11-2023 Patient encounter procedure Svitlana Norman PA-C Work Phone: Orthopaedics Comment on above: Sprain of medial col lateral ligament of left knee, subsequent encounter (Primary Dx); Pain in left mcclelland; Laxity, ligament Start: 05-04-2023 Telephone encounter Thelma barton DO Work Phone: Gastroenterology Comment on above: Results Start: 05-03-2023 End: 05-03-2023 ambulatory THELMA MARTINEZ JR Facility:[facility] Start: 05-03-2023 End: 05-03-2023 Subsequent hospital visit by physician Thelma Martinez DO Work Phone: Ambulatory Surgery Comment on above: Right upper quadrant abdominal pain [R10.11] Start: 04-30-2023 End: 04-30-2023 ambulatory SVITLANA LI Facility:[facility] Start: 04-30-2023 End: 04-30-2023 Subsequent hospital visit by physician Mri [facility] (Lg Bore/1.5t) Radiology MRI Comment on above: Sprain of medial col lateral ligament of left knee, initial encounter [S83.412A] Start: 04-16-2023 End: 04-16-2023 ambulatory BENI DIXON Facility:[facility] Start: 04-13-2023 ambulatory Thelma Martinez DO Work Phone: Gastgroenterology Comment on above: Blood in tolet Start: 04-09-2023 End: 04-09-2023 ambulatory MIRANDA DOTTIE Facility:[facility] Start: 04-08-2023 End: 04-08-2023 ambulatory SVITLANASARA LI Facility:[facility] Start: 04-08-2023 End: 04-08-2023 Patient encounter procedure Svitlana Norman PA-C Work Phone: Orthopaedics Comment on above: Sprain of medial col lateral ligament of left knee, initial encounter (Primary Dx) Start: 04-07-2023 ambulatory Svitlana atkinson PA-C Work Phone: Orthopaedics Comment on above: Knee brace? Start: 04-03-2023 ambulatory Johanna Larson MD Work Phone: Family Medicine Comment on above: X RAY Start: 04-02-2023 End: 04-05-2023 ambulatory Nahomi Raymond RN [facility] Start: 04-02-2023 End: 04-05-2023 Patient encounter procedure Nahomi Raymond RN NURSE EYEGLASS ASSEMBLER Comment on above: Referral Request Sprain of medial col lateral ligament of left knee, initial encounter (Primary Dx); Acute pain of left knee Concussion with loss of consciousness, subsequent encounter (Primary Dx); Laceration of scalp, subsequent encounter; Strain of right trapezius muscle, subsequent encounter; Jaw pain Start: 01-22-2023 End: 01-22-[address] NONE LISTED REQUEST Facility: Start: 09-25-2022 ambulatory BALDO DE Facility:[facility] Start: 09-25-2022 End: 09-25-2022 Subsequent hospital visit by physician [facility] (I-Stat) Work Phone: [facility] Radiology CT Scan Comment on above: Encounter for screen ing for cardiovascular disorders [Z13.6] Start: 08-03-2022 ambulatory FAWN TSAI Facility: [facility] Start: 08-03-2022 End: 08-03-2022 Subsequent hospital visit by physician [facility] Work Phone: [facility] Radiology General Comment on above: Chronic right should er pain [M25.511, G89.29] Procedures Date Procedure Procedure Detail Performing Clinician Start: 09-28-2023 Plain X-ray of left shoulder PHYSICIAN N Carlos A [facility] Start: 09-15-2023 Radex spine thoracic 3 views Dorothy HARRINGTONC Work Phone: Start: 05-11-2023 Radiologic examination tibia & fibula 2 views Svitlana Norman PA-C Work Phone: Start: 05-03-2023 Level iv surg pathology gross&microscopic exam Thelma Martinez DO Work Phone: Start: 05-03-2023 Esophagogastroduodenoscopy transoral diagnostic Thelma Martinez DO Work Phone: Start: 05-03-2023 Colonoscopy flx dx w/collj spec when pfrmd Thelma Martinez DO Work Phone: Start: 04-30-2023 Mri any jt lower extrem w/o contrast matrl Svitlana Norman PA-C Work Phone: Start: 09-25-2022 Unlisted computed tomography procedure Baldo De MD Work Phone: Start: 11-07-2022 Radex spine cervical 4 or 5 views Fawn Tsai DO Work Phone: Plan of Treatment Date Care Activity Detail Author Start: 02-13-2029 Urine microalbumin profile DTaP,Tdap,Td Vaccine (2 - Td or Tdap) [facility] Start: 09-13-2024 Annual PCP Team Client Experience Specialist trung Disease Visit Annual PCP Team Chronic Disease Visit [facility] Start: 05-28-2024 Influenza vaccination Influenz a Vaccine (Season Ended) [facility] Start: 04-17-2024 End: 04-17-2024 Patient encounter procedure 04/17/2024 9:30 AM EDT Office Visit [facility] [id number] [place], [place] [id number] [place] [address] [place], [place] [id number] PT CX R/S Chonic mid back pain [facility] Comment on above: PT CX R/S Chonic mid back pain Start: 04-02-2024 ANNUAL PCP TEAM COLLEGE INTERN TRUNG DISEASE VISIT ANNUAL PCP TEAM CHRONIC DISEASE VISIT [facility] Start: 11-24-2023 Hepatitis B surface antibody level LDL CHOLESTEROL [facility] Start: 09-27-2023 Behavioral Health Screening Behavioral Health Screening [facility] Start: 05-28-2023 Covid-19 Vaccine ( season) Covid-19 Vaccine ( season) [facility] Start: 05-28-2023 Influenza vaccination [facility] Start: 09-27-2022 DEPRESSION ASSESSMENT DEPRESSION ASS ESSMENT [facility] Start: 2008 Hepatitis B Vaccine (1 of 3 - 19+ 3-dose series) Hepatitis B Vaccine (1 of 3 - 19+ 3-dose series) [facility] Start: 2008 Urine microalbumin profile [facility] Start: 06-03-1990 COVID-19 VACCINE (#1) COVID-19 VACCI NE (#1) [facility] Start: 1989 HEPATITIS B (1 of 3 - 3-dose series) HEPATITIS B (1 of 3 - 3-dose series) [facility] Start: 1989 Hepatitis B Vaccine (1 of 3 - 3-dose series) Hepatitis B Vaccine (1 of 3 - 3-dose series) [facility] End: 05-07-2024 MRI KNEE WO IVCON LEFT MRI KNEE WO IVCON LEFT Radiology Routine Sprain of medial collateral ligament of left knee, initial encounter 1 Occurrences starting 04/08/2023 until 05/07/2024 [facility] Work Phone: Comment on above: 1 Occurrences starti ng 04/08/2023 until 05/07/2024 End: 05-01-2024 Radiolog exam mandible compl minimum 4 views XR MANDIBLE 4V PA/YG/BOTH OBL Radiology Routine Jaw pain 1 Occurrences starting 04/02/2023 until 05/01/2024 [facility] Work Phone: Comment on above: 1 Occurrences starti ng 04/02/2023 until 05/01/2024 [facility] Immunizations Immunization Date Immunization Notes Care Provider Olga nair 02-13-2019 tetanus toxoid, redu alin diphtheria toxoid, and acellular pertussis vaccine, adsorbed Xr Bennett [facility] Payers Date Payer Category Payer Self-pay [id number] 2017 Medicaid [id number] 2017 Medicaid [id number] 1989 Unknown [id number] 1959 Unknown [id number] Unknown [id number] Unknown [id number] Social History Date Type Detail Facility Start: 07-21-2022 End: 10-15-2022 Tobacco smoking status NHIS Ex-smoker [facility] Work Phone: End: 08-29-2015 History of tobacco use Current smoker [facility] Work Phone: End: 08-29-2015 History of tobacco use Cigarette Smoker [facility] Work Phone: Start: 10-15-2022 End: 04-08-2023 Cigarettes smoked current (pack per day) - Reported 1 [facility] Start: 07-21-2022 End: 10-15-2022 Tobacco use and exposure Smokeless tobacco non-user [facility] Work Phone: Start: 11-24-2022 End: 10-26-2023 Alcohol intake Current drinker of alcohol (finding) [facility] Start: 10-15-2022 Tobacco Comment Started at 12y o, and quit at 23yo [facility] Start: 08-29-2020 Alcohol Comment weekly [facility] Start: 1989 Sex Assigned At Male [facility] Start: 11-24-2022 End: 04-08-2023 Tobacco use panel [facility] National Score (1-10 0), lower number is lower risk 89 [facility] Start: 06-09-2022 Gender identity Choose not to disclo se [facility] Start: 07-24-2022 End: 08-03-2022 Exposure to SARS-CoV-2 (event) Not sure [facility] Start: 02-06-2021 Tobacco smoking stat us NHIS Never smoked tobacco (finding) [facility] Goals Date Patient Goal Desired Activity /State Personal health goal Clinical Notes 08-03-2022 to 03-10-2024 Tabitha Willis OD - 03/10/2024 11:43 AM EDT Note Date & Type Note Facility 03-10-2024 Note HNO ID: [id number] Author: TABITHA WILLIS OD Service: ? 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 Interventions, Frequency, and Duration: Current Frequency: 1x/week Duration: 4 weeks Total Number of Visits Planned: 4 Planned Treatment Interventions: Therapeutic exercise (19032), Neuromuscular re- education (45765), Self-assisted management (24123), Gait Training (57298), Therapeutic activities (72924), Manual therapy (92814), Patient/Family/Caregiver Education, Body Mechanics Training, Functional training, General Conditioning PLAN FOR NEXT VISIT: calf stretching , hip stetching /quad next visit. slow progression of LLE strengthenig and flexibility for MCL grade one strain. Patient demonstrates good understanding of plan of care and treatment. The above goals and plan of care were discussed and agreed upon by patient/family. SUBJECTIVE: Fell off boat that was in driveway injuring left knee and also hit his head. MRI showed grade one MCL strain left knee. Issued brace by Meri. He was give a order to come to PT but has not come until now. The first month after proceeded normally but since that time it has gotton progressively worse. He continues to have medial knee pain and cramping and squeezing in the left knee , medial thigh and groin. Symtpoms are constant. No numbness tingling report. 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 Home Environment Patient Lives With: Spouse Intake Information: Prescription present Previous Treatment: Immobilizer/brace (Tylonel) Falls Interview: Fall with injury in the last year Falls Intervention: (instructed in patient safety) Aquatic Screen: Yes Pain: Pain Pain Level: 7 Pain Location: Knee - Left Description: Pressure Frequency: Continuous Post Treatment Pain Post Treatment Pain Level: No Change PROMIS Scales T-scores: mean of general population = 50. 5 points is clinically meaningfully difference Percentiles provide an indication of how the patient's score ranks in relation to the general population. Higher percentile rankings indicate better function/quality of life. 50th percentile is the average of the general population and indicates half of respondents had a worse score. OBJECTIVE MEASURES WITH LEVEL OF FUNCTION: Posture / Alignment LE Observations: LLE good muscle defination , no redness, swelling. Knee Observations L Knee Palpation Tenderness: No tenderness noted LE AROM L Knee Extension: 0 Degrees L Knee Flexion: 135 Degrees LE Flexibility Flexibility: Hamstring Flexibility L Hamstring Flexibility: 70 LE Strength L Hip Flexion (L2): 5/5 L Knee Extension (L3): 5/5 L Knee Flexion: 5/5 L Ankle Dorsiflexion (L4): 5/5 L Ankle Plantar Flexion: 5/5 Functional Strength Functional Strength: squat test to 90 degrees x 10 seconds good form, no increased pain Special Tests - Hip and Spine Hip and Spine Special Tests: ANGEL Test ANGEL Test: Left Positive, Right Positive Gait Weight Bearing Status: FWB Gait: Independent Gait Device: None Gait Observation: heel toe gait Education: Education Learning Preferences: Explanation, Demonstration, Performance, Printed Materials Barriers: None Learning/educational needs: Home exercise program, Plan of Care Education Provided: Yes, see treatment interventions for education provided Education Provided To: Patient Education Mode/Type: Demonstration, Explanation/Discussion, Literature/Printed Materials, Performance Response to Education/Teach Back: States/Identifies, Return Demonstration, Requires Review/Additional Education TREATMENT: PT Treatment Interventions: Therapeutic Exercise, Self-Halfway Management Evaluation Therapeutic Exercise: 1: * quad set x 10 for 5 seconds 2: * heel slide x 10 for 3 seconds 3: * s/l hip abduction x 10 for 3 seconds 4: * supine hip abd/add x 10 5: * long sit hamstring stretch 3 x 10 6: *HEP Skilled Intervention: Patient was educated in proper exercise technique and purpose for exercises. Skilled judgment was used in selection of appropriate interventions. Provided written instruction for home exercise program to facilitate proper performance and compliance. Correct performance of therapeutic exercises was facilitated with verbal cuing. Self-Halfway Management: 1: discussed POC 2: discussed diaganosis of MCL grade one strain. Skilled Intervention: Skilled judgment in the selection of proper modification for activity of daily living/home management based on clinical presentation, deficits, and needs. Physical assistance was provided during education for modifications and patient safety. Educated the patient regarding recommendations and provided written instruction to facilitate compliance. Provided written instruction for activities of daily living techniques to facilitate proper performance and compliance. Reviewed patient specific diagnosis in relation to activities of daily living/home management. Activity progression based on professional judgement. Access Code: [email or web address] URL: [email or web address] Date: 08/26/2023 Prepared by: Marc Jacobson Exercises - Supine Quad Set - 1 x daily - 7 x weekly - 3 sets - 10 reps - Supine Heel Slide - 1 x daily - 5 x weekly - 1 sets - 10 reps - 3 hold - Active Straight Leg Raise with Quad Set - 1 x daily - 5 x weekly - 2 sets - 10 reps - 3 hold - Sidelying Hip Abduction - 1 x daily - 5 x weekly - 2 sets - 10 reps - 3 hold - Supine Hip Abduction - 1 x daily - 7 x weekly - 3 sets - 10 reps - Seated Table Hamstring Stretch - 1 x daily - 5 x weekly - 1 sets - 4 reps - 10 hold Billing * Evaluation Low Complexity: 1 Unit Therapeutic Exercise Treatment Minutes: 15 Self-Care/Home Management Treatment Minutes: 15 Skilled Treatment Time Minutes (timed and untimed codes): 45 Total Session Time (minutes): 47 Session Start Time : 919 Session Stop Time : 1006 Marc Jacobson PT [facility] NoteHNO ID: [id number] Author: Marc Jacobson PT Service: ? Author Type: Physical Therapist Type: Progress Notes Filed: 08/26/2023 11:11 AM Note Text: Episode Visit Count: 1 Therapist That Will Accept/Oversee The Plan Of Care: judy Start of Care Date: 08/26/23 Onset Date: 04/03/23 Plan of Care Certification Date: 01/31/18 Next Certification Due Date: 03/14/18 Patient Identified by Name and Date of : Yes REHABILITATION AND SPORTS THERAPY PHYSICAL THERAPY EVALUATION PLAN OF CARE: Assessment: Justin Goins presents with diagnosis of left knee MCI grade 1 strain that interferes with walking, sitting, bending, lifting, physical activities, recreational activities, working, sleeping . Justin Goins presents with impairments in ADL's, flexibility, independence in exercise, symptom management, and tissue tenderness. Patient did not complete the PROMIS? (Patient Reported Outcome Measures Information System). Prognosis for therapy is Good due to: current objective clinical presentation, good overall health status, acuteness of condition . Justin has been wearing a Donjoy knee brace and I suspect he has been over tightening the straps to avoid migration of the brace. We discussed keeping the straps at a comfortable level and trying to go without the brace for some of his ADL's at home as we start strengthing program. Justin Goins will benefit from skilled therapy services to meet the goals established for this plan of care as noted below. Goals for Episode of Care: created on 08/26/23 through 10/26/23 Negative Patrick LLE [place] in home exercise program. Patient will decrease pain rating by 2 points to meet minimal clinical important difference for numeric pain rating scale. Normal gait. Attain prior level of function left knee Sleep without pain LLE Planned Interventions, Frequency, and Duration: Current Frequency: 1x/week Duration: 4 weeks Total Number of Visits Planned: 4 Planned Treatment Interventions: Therapeutic exercise (17213), Neuromuscular re-education (31502), Self-assisted management (35817), Gait Training (63959), Therapeutic activities (50391), Manual therapy (97502), Patient/Family/Caregiver Education, Body Mechanics Training, Functional training, General Conditioning PLAN FOR NEXT VISIT: calf stretching , hip stetching /quad next visit. slow progression of LLE strengthenig and flexibility for MCL grade one strain. Patient demonstrates good understanding of plan of care and treatment. The above goals and plan of care were discussed and agreed upon by patient/family. SUBJECTIVE: Fell off boat that was in driveway injuring left knee and also hit his head. MRI showed grade one MCL strain left knee. Issued brace by Meri. He was give a order to come to PT but has not come until now. The first month after proceeded normally but since that time it has gotton progressively worse. He continues to have medial knee pain and cramping and squeezing in the left knee , medial thigh and groin. Symtpoms are constant. No numbness tingling report. 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 Home Environment Patient Lives With: Spouse Intake Information: Prescription present Previous Treatment: Immobilizer/brace (Tylonel) Falls Interview: Fall with injury in the last year Falls Intervention: (instructed in patient safety) Aquatic Screen: Yes Pain: Pain Pain Level: 7 Pain Location: Knee - Left Description: Pressure Frequency: Continuous Post Treatment Pain Post Treatment Pain Level: No Change PROMIS Scales T-scores: mean of general population = 50. 5 points is clinically meaningfully difference Percentiles provide an indication of how the patient's score ranks in relation to the general population. Higher percentile rankings indicate better function/quality of life. 50th percentile is the average of the general population and indicates half of respondents had a worse score. OBJECTIVE MEASURES WITH LEVEL OF FUNCTION: Posture / Alignment LE Observations: LLE good muscle defination , no redness, swelling. Knee Observations L Knee Palpation Tenderness: No tenderness noted LE AROM L Knee Extension: 0 Degrees L Knee Flexion: 135 Degrees LE Flexibility Flexibility: Hamstring Flexibility L Hamstring Flexibility: 70 LE Strength L Hip Flexion (L2): 5/5 L Knee Extension (L3): 5/5 L Knee Flexion: 5/5 L Ankle Dorsiflexion ( (more content not included)...[facility] 06-10-2023 Miscellaneous Notes* Telephone Encounter - Katherine Friend MA - 06/10/2023 10:29 AM EDT Patient was advised of the following: This is a follow up phone call regarding your appointment with Dr Ashley, which you are scheduled to see at [facility] on 06/11/2023. 1) Have you been evaluated and treated by a Pain Management physician currently or in the past? If so, we will need a release of care from your previous physician. 2) Have you had any outside x-rays or MRI's related to the pain you are being seen for? If so, please bring copies to your appointment with you. Also please recall that our physicians will not take over medications. You will need to make sure you have enough pain medications to last until your follow up appointment with your current prescribing physician. Dr. Ashley is primarily an interventional pain management provider, which means, they treat with physical therapy, injections and non-narcotic medications. Any questions or you need to reschedule please call us at [phone]. Tried calling patient's phone number did not work documented in this encounterGalion [facility]08-[facility]23 NoteHNO ID: [id number] Author: Svitlana Norman PA-C Service: ? Author Type: Physician Missileman Type: Progress Notes Filed: 05/11/2023 11:46 AM Note Text: Patient presents with: Left Knee - Follow Up, Results - Mri, Knee Pain HPI: A 32-year-old patient who presents for follow-up of left knee pain. He sustained a left knee MCL sprain about 1 month ago. He reports that his knee has been feeling intermittently better. He does feel that it is not fully healed and causes pain at times particularly at night which wakes him up at night. He has been working as usual, as he is not able to fully rest the knee due to the nature of his job. He obtained an MRI recently which showed an grade 1 sprain of the MCL. He does report that the swelling has decreased. He has been using his brace as well as an Kathleen wrap for comfort. He is able to bear weight on his leg. He also reports left mcclelland pain including point tenderness. Patient also reports that over the past year or so he has noted increased laxity of all of his joints. He also reports onset of unrelated symptoms including but not limited to chest pain, reflux, vomiting after eating, decreased muscle mass, inability to gain weight. He expressed concerns regarding these symptoms. He reports that he has sought out medical evaluation for the symptoms including cardiology as well as gastroenterology. He has underwent a colonoscopy. All without a definitive diagnosis. No past medical history on file. No past surgical history on file. Current Outpatient Medications Medication Sig Dispense Refill hyoscyamine SR (LEVBID) 0.375 mg 12 hr tablet Take 1 tablet by mouth twice daily. [address] (PROTONIX) 40 mg tablet Take 1 tablet by mouth once daily. 30 tablet 3 meloxicam (MOBIC) 15 mg tablet Take one tablet once daily 30 tablet 0 Current Facility-Administered Medications Medication Dose Route Frequency Provider Last Rate Last Admin perflutren lipid microspheres 1.3 mL in NaCl (PF) 0.9% 10 mL injection (DEFINITY) INTRAVENOUS DIRECTED Baldo West V, MD sodium chloride 0.9 % (flush) 10 mL (BD POSIFLUSH) 10 mL INTRAVENOUS DIRECTED Baldo West V, MD perflutren lipid microspheres 1.3 mL in NaCl (PF) 0.9% 10 mL injection (DEFINITY) INTRAVENOUS DIRECTED Blado West V, MD sodium chloride 0.9 % (flush) 10 mL (BD POSIFLUSH) 10 mL INTRAVENOUS DIRECTED Baldo West V, MD No family history on file. ALLERGIES No Known Allergies ROS: + for arthritis limp limb pain no fevers chills CP or SOB. PE: General: well developed well nourished appears stated age Resp: nonlabored Abd: nontender Left Knee: stable on varus valgus and drawer testing, some pain with valgus stress ROM 0 to 115 degrees Tender to palpation of the infrapatellar area tender to palpation of anterior distal tibia DF PF EHL intact DP PT 2 + Edema no Effusion slight Gait: limp slight Mood: euthymic Coordination: normal Imaging: left knee MRI reveals IMPRESSION: LOW-GRADE SPRAIN OF THE MEDIAL COLLATERAL LIGAMENT. Dictated by : KYMBERLY AVILA MD Left tibia xray without evidence of acute fracture I have reviewed and interpreted films personally Labs: Hemoglobin A1C (%) Date Value 06/02/2018 4.7 CRP Date Value Ref Range Status 01/22/2023 <0.3 <0.9 mg/dL Final AP: 32 year old with a grade 1 MCL sprain. He should continue to use a brace as needed for comfort and stability. He should also continue with physical therapy. He can use a compression sleeve at night or during work for further support. We discussed his onset of other bodily symptoms, I do have a concern for a possible autoimmune disease. We discussed a referral for evaluation by rheumatology. The patient is very interested. He will follow-up with me in about 6 weeks, in the meantime I suggested he participate fully with physical therapy. We discussed that rest and PT will be best for pain relief and further healing. Addressed patient questions and concerns. [facility]08[facility]15[facility] History of Present illness Narrative* Svitlana Norman PA-C - 05/11/2023 10:24 AM EDT Patient presents with: Left Knee - Follow Up, Results - Mri, Knee Pain HPI: A 32-year-old patient who presents for follow-up of left knee pain. He sustained a left knee MCL sprain about 1 month ago. He reports that his knee has been feeling intermittently better. He does feel that it is not fully healed and causes pain at times particularly at night which wakes him upat night. He has been working as usual, as he is not able to fully rest the knee due to the nature of his job. He obtained an MRI recently which showed an grade 1 sprain of the MCL. He does report that the swelling has decreased. He has been using his brace as well as an Kathleen wrap for comfort. He isable to bear weight on his leg. He also reports left mcclelland pain including point tenderness. Patient also reports that over the past year or so he has noted increased laxity of all of his joints. He also reports onset of unrelated symptoms including but not limited to chest pain, reflux, vomiting after eating, decreased muscle mass, inability to gain weight. He expressed concerns regardingthese symptoms. He reports that he has sought out medical evaluation for the symptoms including cardiology as well as gastroenterology. He has underwent a colonoscopy. All without a definitive diagnosis. No past medical history on file. No past surgical history on file. Current Outpatient Medications Medication Sig Dispense Refill hyoscyamine SR (LEVBID) 0.375 mg 12 hr tablet Take 1 tablet by mouth twice daily. [address] (PROTONIX) 40 mg tablet Take 1 tablet by mouth once daily. 30 tablet 3 meloxicam (MOBIC) 15 mg tablet Take one tablet once daily 30 tablet 0 Current Facility-Administered Medications Medication Dose Route Frequency Provider Last Rate Last Admin perflutren lipid microspheres 1.3 mL in NaCl (PF) 0.9% 10 mL injection (DEFINITY) INTRAVENOUS DIRECTED Baldo West V, MD sodium chloride 0.9 % (flush) 10 mL (BD POSIFLUSH) 10 mL INTRAVENOUS DIRECTED Baldo West V, MD perflutren lipid microspheres 1.3 mL in NaCl (PF) 0.9% 10 mL injection (DEFINITY) INTRAVENOUS DIRECTED Baldo West V, MD sodium chloride 0.9 % (flush) 10 mL (BD POSIFLUSH) 10 mL INTRAVENOUS DIRECTED Baldo West V, MD No family history on file. ALLERGIES No Known Allergies ROS: + for arthritis limp limb pain no fevers chills CP or SOB. PE: General: well developed well nourished appears stated age Resp: nonlabored Abd: nontender Left Knee: stable on varus valgus and drawer testing, some pain with valgus stress ROM 0 to 115 degrees Tender to palpation of the infrapatellar area tender to palpation of anterior distal tibia DF PF EHL intact DP PT 2 + Edema no Effusion slight Gait: limp slight Mood: euthymic Coordination: normal Imaging: left knee MRI reveals IMPRESSION: LOW-GRADE SPRAIN OF THE MEDIAL COLLATERAL LIGAMENT. Dictated by : KYMBERLY AVILA MD Left tibia xray without evidence of acute fracture I have reviewed and interpreted films personally Labs: Hemoglobin A1C (%) Date Value 06/02/2018 4.7 CRP Date Value Ref Range Status 01/22/2023 <0.3 <0.9 mg/dL Final AP: 32 year old with a grade 1 MCL sprain. He should continue to use a brace as needed for comfort and stability. He should also continue with physical therapy. He can use a compression sleeve at night or during work for further support. We discussed his onset of other bodily symptoms, I do have a concern for a possible autoimmune disease. We discussed a referral for evaluation by rheumatology. The patient is very interested. He will follow-up with me in about 6 weeks, in the meantime I suggested he participate fully with physical therapy. We discussed that rest and PT will be best for pain relief and further healing. Addressed patient questions and concerns. Svitlana Norman PA-C documented in this encounterGalion [facility] Hospital08-15-2023 History of Present illness Narrative* Brenna Russo RT(R) - 05/11/2023 9:15 AM EDT Radiology Service Progress Note PATIENT NAME: Justin Goins DATE OF SERVICE: May 11, 2023 TIME: 9:28 AM PATIENT IDENTITY VERIFICATION COMPLETED USING TWO (2) IDENTIFIERS: Name and Date of confirmedby patient verbally. FALL SCREENING: Has the patient had 2 falls in the last year or 1 fall with injury or currently using an Ambulatory Assistive Device (Walker, Cane, Wheelchair, Crutches, etc.)? No PATIENT GENDER DATA: Male PATIENT RELEVANT IMPLANT DATA REVIEWED: Not Applicable RADIOLOGY DEPARTMENT: General X-ray: Exam(s) Completed: Lower Extremity X- Ray(s): Tibia Fibula, Left PERIPHERAL IV DATA: Not applicable SIGNED BY: RT Emily(Jaret) May 11, 2023 9:28 AM documented in this encounterGalion Community Hospital08-15-2023 NoteHNO ID: [id number] Author: Brenna Russo RT(R) Service: Radiology Author Type: Care Manager Cna Type: Progress Notes Filed: 05/11/2023 9:29 AM Note Text: Radiology Service Progress Note PATIENT NAME: Justin Goins DATE OF SERVICE: May 11, 2023 TIME: 9:28 AM PATIENT IDENTITY VERIFICATION COMPLETED USING TWO (2) IDENTIFIERS: Name and Date of confirmed by patient verbally. FALL SCREENING: Has the patient had 2 falls in the last year or 1 fall with injury or currently using an Ambulatory Assistive Device (Walker, Cane, Wheelchair, Crutches, etc.)? No PATIENT GENDER DATA: Male PATIENT RELEVANT IMPLANT DATA REVIEWED: Not Applicable RADIOLOGY DEPARTMENT: General X-ray: Exam(s) Completed: Lower Extremity X-Ray(s): Tibia Fibula, Left PERIPHERAL IV DATA: Not applicable SIGNED BY: RT Emily(Jaret) May 11, 2023 9:28 [facility]08-09-2023 Miscellaneous Notes * Telephone Encounter - Elizabeth Fontenot - 05/05/2023 8:25 AM EDT Please contact the patient to schedule an appointment. Appointment specifications include: WHY does the patient need to be seen? Follow up WHO should the patient schedule the appointment with? Physician only WHAT specific type of appointment is needed? Follow-Up WHEN should the patient be seen? First available appointment WHERE should the patient be seen? In Office * Telephone Encounter - Telma Fernandez RN - 05/04/2023 1:32 PM EDT Unable to LVM, VM was full, sent [employer] message. Schedulers, please schedule non-urgent follow up in the office. Thank you Telma Fernandez RN * Telephone Encounter - Telma Fernandez RN - 05/04/2023 1:32 PM EDT ----- Message from Thelma Martinez Jr., DO sent at 05/04/2023 1:06 PM EDT ----- Maintain pantoprazole for GERD. Start Levbid twice daily for diarrhea and abd pain. Followup office. Thelma Martinez Jr., DO documented in this encounterGalion Community Hospital08-07-2023 History and physical note * Thelma Martinez Jr., DO - 05/03/2023 9:00 AM EDT HISTORY AND PHYSICAL EXAMINATION SERVICE DATE: 05/03/2023 SERVICE TIME: 8:34 AM Chief Complaint: N/V, abd pain, diarrhea HPI:This is a 32 year old adult with blood in stool, N/V, abd pain, and diarrhea. Symptoms intermittent for the past two years. He has tried dietary changes with limited benefit. N/V typically occursafter meals but no particular triggers. Abd pain is right sided, mainly RLQ. Diarrhea is chronic but improves with fasting and does not awaken him from sleep. Blood in stool is intermittent and typically bright red. Imaging has been negative. Never had an EGD or colonoscopy before. Family history of Crohn's (cousin). History reviewed. No pertinent past medical history. History reviewed. No pertinent surgical history. History reviewed. No pertinent family history. Social History Tobacco Use Smoking status: Former Packs/day: 1.00 Years: 11.00 Total pack years: 11.00 Types: Cigarettes Quit date: 08/29/2015 Years since quittin.6 Smokeless tobacco: Never Tobacco comments: Started at 12yo, and quit at 23yo Vaping Use Vaping Use: Never used Substance Use Topics Alcohol use: Yes Comment: weekly Drug use: Not Currently Types: Marijuana (Not in a hospital admission) ALLERGIES No Known Allergies COMPLETE REVIEW OF SYSTEMS: GENERAL: No weight loss, malaise or fevers RESPIRATORY: Negative for cough, hemoptysis, wheezing, COPD, dyspnea or shortness of breath CARDIOVASCULAR: Negative for chest pain, leg swelling, hypertension, CHF or palpitations GI: Positive for abdominal discomfort , diarrhea , nausea BP 125/71 Pulse 85 Temp (Src) 97.4 (Temporal) Resp 16 SpO2 98% O2 Therapy: Room Air PHYSICAL EXAM: Physical Exam Performed: GENERAL: Alert, no distress, cooperative LUNGS: Lungs clear to auscultation, Good diaphragmatic excursion CARDIAC: Normal S1 and S2; no rubs, murmurs, or gallops ABDOMEN: Abdomen soft, non-tender, BS normal, No masses or organomegaly EXTREMITIES: Extremities normal, no deformities, edema, clubbing or skin discoloration. Good capillary refill., No ulcers (R10.11) Right upper quadrant abdominal pain Plan: EGD DIAGNOSTIC, EGD DIAGNOSTIC, COLONOSCOPY DIAGNOSTIC, COLONOSCOPY DIAGNOSTIC (K92.1) Blood in stool Plan: EGD DIAGNOSTIC, EGD DIAGNOSTIC, COLONOSCOPY DIAGNOSTIC, COLONOSCOPY DIAGNOSTIC (R11.2) Nausea and vomiting, unspecified vomiting type Plan: EGD DIAGNOSTIC, EGD DIAGNOSTIC (R19.7) Diarrhea, unspecified type Plan: COLONOSCOPY DIAGNOSTIC, COLONOSCOPY DIAGNOSTIC (R63.4) Loss of weight Plan: COLONOSCOPY DIAGNOSTIC, COLONOSCOPY DIAGNOSTIC SIGNATURE: Thelma Martinez Jr., DO PATIENT NAME: Justin Goins DATE: May 03, 2023 TIME: 8:34 AM PAGER/CONTACT #: documented in this encounterGalion Community Hospital08-04-2023 History of Present illness Narrative* Andrea Sen RT(R) - 04/30/2023 3:20 PM EDT Radiology Service Progress Note PATIENT NAME: Justin Goins DATE OF SERVICE: April 30, 2023 TIME: 4:20 PM PATIENT IDENTITY VERIFICATION COMPLETED USING TWO (2) IDENTIFIERS: Name and Date of confirmedby patient verbally and Name and Date of confirmed by identification band. FALL SCREENING: Has the patient had 2 falls in the last year or 1 fall with injury or currently using an Ambulatory Assistive Device (Walker, Cane, Wheelchair, Crutches, etc.)? No PATIENT GENDER DATA: Male PATIENT RELEVANT IMPLANT DATA REVIEWED: Yes RADIOLOGY DEPARTMENT: MR; Exam(s) Completed: Lower MSK: Knee, left PERIPHERAL IV DATA: Not applicable SIGNED BY: RT Arnold(Jaret) April 30, 2023 4:20 PM documented in this encounterGalion Community Hospital08-04-2023 NoteHNO ID: [id number] Author: Andrea Sen RT(Jaret) Service: Radiology Author Type: Technologist Type: Progress Notes Filed: 04/30/2023 4:21 PM Note Text: Radiology Service Progress Note PATIENT NAME: Justin Goins DATE OF SERVICE: April 30, 2023 TIME: 4:20 PM PATIENT IDENTITY VERIFICATION COMPLETED USING TWO (2) IDENTIFIERS: Name and Date of confirmed by patient verbally and Name and Date of confirmed by identification band. FALL SCREENING: Has the patient had 2 falls in the last year or 1 fall with injury or currently using an Ambulatory Assistive Device (Walker, Cane, Wheelchair, Crutches, etc.)? No PATIENT GENDER DATA: Male PATIENT RELEVANT IMPLANT DATA REVIEWED: Yes RADIOLOGY DEPARTMENT: MR; Exam(s) Completed: Lower MSK: Knee, left PERIPHERAL IV DATA: Not applicable SIGNED BY: RT Arnold(Jaret) April 30, 2023 4:20 [facility]07-21-2023 NoteHNO ID: [id number] Author: Beni Dixon RD Service: ? Author Type: Registered Dietitian Type: Progress Notes Filed: 04/16/2023 4:35 PM Note Text: Nutrition Therapy Initial Assessment Nutrition Diagnosis: Altered Gastrointestinal Tract Function, related to, unknown, as evidenced by loose BM and weight loss and Unintended weight loss, related to, inadequate calorie intake, as evidenced by diet recall . RECOMMENDED MALNUTRITION DIAGNOSIS: NO MALNUTRITION IDENTIFIED NUTRITION CARE PLAN Nutrition Intervention 04/15/2023: Digestion Issues - Eat 5-6 small meals a day. - Eat slowly and chew foods to a mashed potato consistency. - Keep a daily food journal to identify foods you eat that cause the symptoms you experience. - Keep well hydrated and drink an oral rehydration solution as needed. - Continue taking high protein drink 1-2x/day as tolerated. CAD Follow Mediterranean Diet Pattern: -Aim for 3 servings fruit per day and 3+ servings non starchy vegetables -Aim for 3 servings legumes (beans and lentils) per week -Aim for at least 1 TBSP EVOO per day -Aim for 3 servings omega 3 fatty acid rich fish per week Such as salmon, guillory, tuna and mackerel -Aim for 3 servings almonds, walnuts or hazelnuts per week -Aim for 3-6 servings whole grains/starchy vegetables per day -Choose lean protein sources such as chicken, fish, eggs, low fait/non fat dairy -Avoid red meat or limit to no more than 3 ounces per week -Avoid packaged/processed baked goods. Homemade baked goods should be limited to less than 3 times per week. -Aim for 64 ounces of water daily -Aim for 150 minutes weekly of physical activity. -A good site for further information on the Mediterranean diet with recipes is: [email or web address] Nutrition Monitoring AND Evaluation: PO, weight status, activity, adherence to the above recommendations. Need for Follow up: prn Patient presents for nutrition counseling in the context of CAD. Pt asked to be seen for CAD diagnosis but discussed his GI issues most of the visit. He si also concerned with his weight loss and feeling like his muscles are wasting. BMI is wnl's and weight loss is mild. Diet recall reveals that pt eats 2 meals per day and likely not getting enough calories to gain weight which is his goal. He does try to include vegetables often but cannot tolerate it at times. He supplement with Muscle Milk. Recommend pt consult with basket operator to determine cause of GI distress. He can continue with high protein supplements and consider keeping a diet diary to see if certain foods correlate with GI issues. 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 Resting Metabolic Rate: 1741 Body mass index is 24.94 kg/m?. RMR can't be calculated - Weight unrecorded in last 120 days. Malnutrition Screening Significant unintentional weight loss? No Eating less than 75% of usual intake for more than 2 weeks? No Potential Signs of Inflammation: unable to determine at this time Education Materials Provided: Mediterranean Diet and High Protein Foods READINESS TO LEARN Cognitive ability: Alert and oriented Motivation to learn: Interested Family support: Unable to assess - Family not present Instruction provided to: Patient Patient learns best by: Multiple Methods Factors affecting learning: None Physical limitations affecting learning: None Referred/Supervised by: self MNT Billing Type: Initial Assess/15 min 3 units SIGNATURE: Beni Dixon RD PATIENT NAME: Justin Goins DATE: April 15, 2023 TIME: 4:03 PM PAGER:[facility]07-21-2023 NoteEducation (NUTRLN) JUSTIN GOINS ([id number]) 1990 M Date Time Provider Department 04/16/23 8:45 AM BENI DIXON Reason for Visit: Patient Education [91] Nutrition Assessment [1591] Visit Diagnoses:Coronary artery calcification [I25.10, I25.84] Family history of early CAD [Z82.49] Pure hypercholesterolemia [E78.00] Order(s):CONSULT TO NUTRITION THERAPY [9020] Order #: [id number]: 1 During your visit today, we recorded the following information about you: Weight Height 78.8 kg 1.778 m Allergies As of Date: 04/16/2023 (No Known Allergies) Date Reviewed: 04/16/2023 Reviewed by: Beni Dixon RD - Fully Assessed Prescriptions as of 04/16/2023 - meloxicam (MOBIC) 15 mg tablet Take one tablet once daily Facility-Administered Medications as of 04/16/2023 - perflutren lipid microspheres 1.3 mL in NaCl (PF) 0.9% 10 mL injection (DEFINITY) - sodium chloride 0.9 % (flush) 10 mL (BD POSIFLUSH) - perflutren lipid microspheres 1.3 mL in NaCl (PF) 0.9% 10 mL injection (DEFINITY) - sodium chloride 0.9 % (flush) 10 mL (BD POSIFLUSH) Disposition: Return if symptoms worsen or fail to improve. Follow-up and Disposition History for Encounter Date Provider Department Center 04/16/2023 [id number] DIXON REPLACED BY [facility] Latoya Encounter Status:Closed by BENI DIXON on 04/16/23[facility] 04-09-2023 Miscellaneous Notes* Telephone Encounter - Imani Nolan MA - 04/09/2023 3:27 PM EDT Patient was seen in the office by Ying was given. documented in this encounterGalion Community Hospital07-13-2023 NoteHNO ID: [id number] Author: Svitlana Norman PA-C Service: ? Author Type: Physician Missileman Type: Progress Notes Filed: 04/08/2023 7:28 PM Note Text: Patient presents with: Left Knee - Established Patient Left Knee Pain HPI: This is a 29-year-old who presents for follow-up of left knee pain. He was seen by me about 1 week ago following a fall from a boat on land. He reports that he was consciousness when he fell and does not call how he injured his knee. He has been using an Kathleen wrap and crutches for the past week. He reports that the knee pain is still constant and especially worse at night. He does feel that his knee caves in and gives out. Pain is located on the inside aspect of his left knee. He is well to bear some weight on his leg. He has follow-up scheduled with management for a back injury as well as with neurology for recent concussion due to fall. No past medical history on file. No past surgical history on file. Current Outpatient Medications Medication Sig Dispense Refill meloxicam (MOBIC) 15 mg tablet Take one tablet once daily 30 tablet 0 Current Facility-Administered Medications Medication Dose Route Frequency Provider Last Rate Last Admin perflutren lipid microspheres 1.3 mL in NaCl (PF) 0.9% 10 mL injection (DEFINITY) INTRAVENOUS DIRECTED Baldo West V, MD sodium chloride 0.9 % (flush) 10 mL (BD POSIFLUSH) 10 mL INTRAVENOUS DIRECTED Baldo West V, MD perflutren lipid microspheres 1.3 mL in NaCl (PF) 0.9% 10 mL injection (DEFINITY) INTRAVENOUS DIRECTED Baldo West V, MD sodium chloride 0.9 % (flush) 10 mL (BD POSIFLUSH) 10 mL INTRAVENOUS DIRECTED Baldo West V, MD No family history on file. ALLERGIES No Known Allergies ROS: + for arthritis limp limb pain no fevers chills CP or SOB. PE: General: well developed well nourished appears stated age Resp: nonlabored Abd: nontender Left Knee: stable on varus and drawer testing. Instability and pain with valgus stress ROM 0 to 100 degrees DF PF EHL intact DP PT 2 + Edema no Effusion no Gait: limp yes due to pain, using crutches Mood: euthymic Coordination: normal Imaging: reveals no evidence of fracture or dislocation. I have reviewed and interpreted films personally Labs: Hemoglobin A1C (%) Date Value 06/02/2018 4.7 CRP Date Value Ref Range Status 01/22/2023 <0.3 <0.9 mg/dL Final AP: 32 year old with recent left knee injury. With persistent pain over the past week, we will proceed with an MRI of the left knee to evaluate for internal derangement. The patient will continue taking Mobic for pain control. He also can use crutches as needed. He was given a brace today by our [employer] representative. He feels this provides support and stability for his knee. We have put an order outpatient PT which she will begin over the next couple of weeks. He was scheduled MRI. He will follow-up with me once the MRI is complete. [facility] History of Present illness Narrative* Svitlana Norman PA-C - 04/08/2023 5:45 PM EDT Patient presents with: Left Knee - Established Patient Left Knee Pain HPI: This is a 29-year-old who presents for follow-up of left knee pain. He was seen by me about 1 week ago following a fall from a boat on land. He reports that he was consciousness when he fell anddoes not call how he injured his knee. He has been using an Kathleen wrap and crutches for the past week. He reports that the knee pain is still constant and especially worse at night. He does feel that his knee caves in and gives out. Pain is located on the inside aspect of his left knee. He is well to bear some weight on his leg. He has follow-up scheduled with management for a back injury as well as with neurology for recent concussion due to fall. No past medical history on file. No past surgical history on file. Current Outpatient Medications Medication Sig Dispense Refill meloxicam (MOBIC) 15 mg tablet Take one tablet once daily 30 tablet 0 Current Facility-Administered Medications Medication Dose Route Frequency Provider Last Rate Last Admin perflutren lipid microspheres 1.3 mL in NaCl (PF) 0.9% 10 mL injection (DEFINITY) INTRAVENOUS DIRECTED Baldo West V, MD sodium chloride 0.9 % (flush) 10 mL (BD POSIFLUSH) 10 mL INTRAVENOUS DIRECTED Baldo West V, MD perflutren lipid microspheres 1.3 mL in NaCl (PF) 0.9% 10 mL injection (DEFINITY) INTRAVENOUS DIRECTED Baldo West V, MD sodium chloride 0.9 % (flush) 10 mL (BD POSIFLUSH) 10 mL INTRAVENOUS DIRECTED Baldo West V, MD No family history on file. ALLERGIES No Known Allergies ROS: + for arthritis limp limb pain no fevers chills CP or SOB. PE: General: well developed well nourished appears stated age Resp: nonlabored Abd: nontender Left Knee: stable on varus and drawer testing. Instability and pain with valgus stress ROM 0 to 100 degrees DF PF EHL intact DP PT 2 + Edema no Effusion no Gait: limp yes due to pain, using crutches Mood: euthymic Coordination: normal Imaging: reveals no evidence of fracture or dislocation. I have reviewed and interpreted films personally Labs: Hemoglobin A1C (%) Date Value 06/02/2018 4.7 CRP Date Value Ref Range Status 01/22/2023 <0.3 <0.9 mg/dL Final AP: 32 year old with recent left knee injury. With persistent pain over the past week, we will proceed with an MRI of the left knee to evaluate for internal derangement. The patient will continue taking Mobic for pain control. He also can use crutches as needed. He was given a brace today by our [employer] representative. He feels this provides support and stability for his knee. We have put an order outpatient PT which she will begin over the next couple of weeks. He was scheduled MRI. He will follow-up with me once the MRI is complete. Svitlana Norman PA-C [facility] Instructions* Patient Instructions* Svitlana Norman PA-C - 04/08/2023 4:59 PM EDT Schedule MRI in2 weeks Schedule PT 2 weeks Follow up with me in 3 weeks documented [facility]23 NoteHNO ID: [id number] Author: Svitlana Norman PA-C Service: ? Author Type: Physician [place] Type: Progress Notes Filed: 04/02/2023 7:03 PM Note Text: Patient presents with: Left Knee - Pain, New HPI: This is a 32 year old who presents with acute left knee pain after a fall yesterday. He reports he was working on his boat and fell backward onto the concrete. He lost consciousness and reports he awoke on his patio and then went upstairs to sleep. He presented to an outside hospital ED yesterday evening. He presents today with severe left knee pain. He has been using crutches to ambulate. He has tried Tylenol for pain relief. He also complains of neck and upper back pain. No past medical history on file. No past surgical history on file. Current Outpatient Medications Medication Sig Dispense Refill meloxicam (MOBIC) 15 mg tablet Take one tablet once daily 30 tablet 0 Current Facility-Administered Medications Medication Dose Route Frequency Provider Last Rate Last Admin perflutren lipid microspheres 1.3 mL in NaCl (PF) 0.9% 10 mL injection (DEFINITY) INTRAVENOUS DIRECTED PRMarily De V, MD sodium chloride 0.9 % (flush) 10 mL (BD POSIFLUSH) 10 mL INTRAVENOUS DIRECTED PRMarily De V, MD perflutren lipid microspheres 1.3 mL in NaCl (PF) 0.9% 10 mL injection (DEFINITY) INTRAVENOUS DIRECTED PRMarily De V, MD sodium chloride 0.9 % (flush) 10 mL (BD POSIFLUSH) 10 mL INTRAVENOUS DIRECTED PRMarily De V, MD No family history on file. ALLERGIES No Known Allergies ROS: + for limp limb pain no fevers chills CP or SOB. PE: General: well developed well nourished appears stated age Resp: nonlabored Abd: nontender Left Knee: stable on varus and drawer testing. Slight instability and guarding on valgus stress ROM 5 to 80 degrees due to pain DF PF EHL intact DP PT 2 + Edema no Effusion yes Gait: unable to weight bear due to pain, using crutches Mood: euthymic Coordination: normal Imaging: reveals no acute process, no evidence of acute fracture or dislocation. I have reviewed and interpreted films personally Labs: Hemoglobin A1C (%) Date Value 06/02/2018 4.7 CRP Date Value Ref Range Status 01/22/2023 <0.3 <0.9 mg/dL Final AP: 32 year old with suspected medial collateral ligament sprain. He already has crutches, he will continue to be non-weight bearing until able to tolerate. I applied an KATHLEEN wrap today and instructed him to obtain a compression sleeve brace from a drugstore. He should proceed with ice and elevation and I have also sent an Rx for Mobic. He will schedule an appointment with Meri on Wednesday to be fitted for a brace. He will follow up with me in clinic . He should follow up with primary care and neurology for concussion symptoms as well as neck pain. [facility]07[facility] History of Present illness Narrative* Svitlana Norman PA-C - 04/02/2023 6:18 PM EDT Patient presents with: Left Knee - Pain, New HPI: This is a 32 year old who presents with acute left knee pain after a fall yesterday. He reports he was working on his boat and fell backward onto the concrete. He lost consciousness and reports he awoke on his patio and then went upstairs to sleep. He presented to an outside hospital ED yesterday evening. He presents today with severe left knee pain. He has been using crutches to ambulate. He has tried Tylenol for pain relief. He also complains of neck and upper back pain. No past medical history on file. No past surgical history on file. Current Outpatient Medications Medication Sig Dispense Refill meloxicam (MOBIC) 15 mg tablet Take one tablet once daily 30 tablet 0 Current Facility-Administered Medications Medication Dose Route Frequency Provider Last Rate Last Admin perflutren lipid microspheres 1.3 mL in NaCl (PF) 0.9% 10 mL injection (DEFINITY) INTRAVENOUS DIRECTED CARLIN De V, MD sodium chloride 0.9 % (flush) 10 mL (BD POSIFLUSH) 10 mL INTRAVENOUS DIRECTED CARLIN De V, MD perflutren lipid microspheres 1.3 mL in NaCl (PF) 0.9% 10 mL injection (DEFINITY) INTRAVENOUS DIRECTED CARLIN De V, MD sodium chloride 0.9 % (flush) 10 mL (BD POSIFLUSH) 10 mL INTRAVENOUS DIRECTED CARLIN De V, MD No family history on file. ALLERGIES No Known Allergies ROS: + for limp limb pain no fevers chills CP or SOB. PE: General: well developed well nourished appears stated age Resp: nonlabored Abd: nontender Left Knee: stable on varus and drawer testing. Slight instability and guarding on valgus stress ROM 5 to 80 degrees due to pain DF PF EHL intact DP PT 2 + Edema no Effusion yes Gait: unable to weight bear due to pain, using crutches Mood: euthymic Coordination: normal Imaging: reveals no acute process, no evidence of acute fracture or dislocation. I have reviewed and interpreted films personally Labs: Hemoglobin A1C (%) Date Value 06/02/2018 4.7 CRP Date Value Ref Range Status 01/22/2023 <0.3 <0.9 mg/dL Final AP: 32 year old with suspected medial collateral ligament sprain. He already has crutches, he will continue to be non-weight bearing until able to tolerate. I applied an KATHLEEN wrap today and instructed himto obtain a compression sleeve brace from a drugstore. He should proceed with ice and elevation Kaila have also sent an Rx for Mobic. He will schedule an appointment with Meri on Wednesday to be fitted for a brace. He will follow up with me in clinic . He should follow up with primary care and neurology for concussion symptoms as well as neck pain. Svitlana Norman PA-C documented in this encounterGal[facility]23 NoteHNO ID: [id number] Author: RT John(R) Service: Radiology Author Type: Technologist Type: Progress Notes Filed: 04/02/2023 5:58 PM Note Text: Radiology Service Progress Note PATIENT NAME: Justin Goins DATE OF SERVICE: April 02, 2023 TIME: 5:58 PM PATIENT IDENTITY VERIFICATION COMPLETED USING TWO (2) IDENTIFIERS: Name and Date of confirmed by patient verbally. FALL SCREENING: Has the patient had 2 falls in the last year or 1 fall with injury or currently using an Ambulatory Assistive Device (Walker, Cane, Wheelchair, Crutches, etc.)? No PATIENT GENDER DATA: Male PATIENT RELEVANT IMPLANT DATA REVIEWED: Not Applicable RADIOLOGY DEPARTMENT: General X-ray: Exam(s) Completed: Lower Extremity X-Ray(s): Knee, AP / Lat / Tunne / Merchant Left and Wt. Bearing PERIPHERAL IV DATA: Not applicable SIGNED BY: RT John(R) April 02, 2023 5:58 [facility]07-07-2023 NoteELLIEO ID: [id number] Author: Johanna Jacques MD Service: ? Author Type: Physician Type: Progress Notes Filed: 04/08/2023 8:05 AM Note Text: Family Medicine Office Visit April 02, 2023 CC: Patient presents with: Recheck HPI: Justin Goins is an 32 year old adult who presents for: ED follow up Fell back off boat yesterday when he was trying to cover it with tarp and hit head on possible scaffolding or wood beam Thinks he passed out, not sure how long. Was able to walk to [facility] after Went to a local ED at [place] for evaluation - reports a CT scan of his head States he was told he did not need stitches He was told to follow up with Ortho for left knee pain - pt plans to go to [facility], states he was advised to when calling in to schedule appointment with Ortho He does not have any records available No headache, dizziness, vision changes Some left sided jaw pain Some ringing in left ear that is new, improved today Had episode emesis after ED visit yesterday No recurrent N/V. Tolerating PO today, had some cookies and crackers. Mild fatigue No numbness or tingling in extremities Mild burning to area of laceration on left upper scalp Denies hx seizure or syncope. No dizziness/presyncope prior to fall Allergies: Reviewed Medications: Reviewed REVIEW OF SYSTEMS See HPI PHYSICAL EXAM BP 128/84 Pulse 73 Physical Exam Constitutional: General: Justin Goins is not in acute distress. HENT: Head: Normocephalic and atraumatic. Comments: Approximately 2 cm linear laceration on Left parietal area Edges well approximated, appears healing, scab in place. No active bleeding or drainage Mild TTP No significant hematoma noted on exam Moderate TTP to left lower mandible without obvious deformity, overlying trauma Right Ear: Tympanic membrane normal. Left Ear: Tympanic membrane normal. Mouth/Throat: Mouth: Mucous membranes are moist. Pharynx: Oropharynx is clear. Eyes: Conjunctiva/sclera: Conjunctivae normal. Pupils: Pupils are equal, round, and reactive to light. Neck: Comments: Mild R sided trapezius TTP Cardiovascular: Rate and Rhythm: Normal rate and regular rhythm. Heart sounds: No murmur heard. Pulmonary: Effort: Pulmonary effort is normal. Breath sounds: No wheezing, rhonchi or rales. Musculoskeletal: Cervical back: Normal range of motion. Comments: Superficial abrasion to right lower chest wall No midline cervical or thoracolumbar spinal TTP Skin: General: Skin is warm and dry. Comments: Superficial abrasion to left lateral elbow. No bleeding, drainage, surrounding erythema, or swelling noted Neurological: Mental Status: Justin Goins is alert and oriented to person, place, and time. Cranial Nerves: No cranial nerve deficit. Sensory: No sensory deficit. Motor: No weakness. Coordination: Coordination normal. Comments: Antalgic gait, pt on crutches. Able to balance on right leg only without difficulty Pt reported feeling of lightheadedness when shifting left let to obtain repeat BP, pt reported with pain from left knee. This spontaneously resolved with rest. Repeat BP obtained without difficulty. ASSESSMENT AND PLAN 1. Concussion with loss of consciousness, subsequent encounter - ICD9: V58.89, 850.5, ICD10: S06.0X9D (primary diagnosis) 2. Laceration of scalp, subsequent encounter - ICD9: V58.89, 873.0, ICD10: S01.01XD 3. Strain of right trapezius muscle, subsequent encounter - ICD9: V58.89, 840.8, ICD10: S46.811D 4. Jaw pain - ICD9: 784.92, ICD10: R68.84 Fall while covering boat with tarp with head trauma, reported LOC of unknown duration yesterday. Denies hx seizures. No reported dizziness/presyncope prior to fall. S/p outside ED evaluation - pt reported CT Head and Cervical Spine completed, states he was not advised further follow up for this Cranial nerve testing and finger to nose testing intact. Limited balance exam possible in setting of pt's left knee pain and crutches, pt able to balance without difficulty on single leg standing on right. Suggestive of concussion. Continue to monitor left ear ringing, improved per history. No acute findings on ear exam bilaterally. Brief lightheadedness during appt when moving left leg, likely 2/2 pain, resolved spontaneously. Has not had persistent dizziness or lightheadedness Given no recurrent vomiting, improved ringing in left ear, no focal neurologic findings, low suspicion for new acute intracranial pathology. However, reviewed with pt that I do not have imaging reports for CT Head and C-Spine for confirmation. There is a low threshold for presentation to ED if any new or worsening symptoms. This was reviewed in detail with pt. Will obtain jaw XR for tenderness to palpation of left lower jaw - Advised brain rest in setting of concussion, encourage hydration - XR MANDIBLE 4V PA/YG/BOTH OBL - Low threshold to return to ED for evaluation - includ (more content not included)...[facility]07-07-2023 History of Present illness Narrative* Johanna Jacques MD - 04/02/2023 4:26 PM EDT Family Medicine Office Visit April 02, 2023 CC: Patient presents with: Recheck HPI: Justin Goins is an 32 year old adult who presents for: ED follow up Fell back off boat yesterday when he was trying to cover it with tarp and hit head on possible scaffolding or wood beam Thinks he passed out, not sure how long. Was able to walk to [place] after Went to a local ED at [place] for evaluation - reports a CT scan of his head States he was told he did not need stitches He was told to follow up with Ortho for left knee pain - pt plans to go to [facility], states he was advised to when calling in to schedule appointment with Ortho He does not have any records available No headache, dizziness, vision changes Some left sided jaw pain Some ringing in left ear that is new, improved today Had episode emesis after ED visit yesterday No recurrent N/V. Tolerating PO today, had some cookies and crackers. Mild fatigue No numbness or tingling in extremities Mild burning to area of laceration on left upper scalp Denies hx seizure or syncope. No dizziness/presyncope prior to fall Allergies: Reviewed Medications: Reviewed REVIEW OF SYSTEMS See HPI PHYSICAL EXAM BP 128/84 Pulse 73 Physical Exam Constitutional: General: Justin Goins is not in acute distress. HENT: Head: Normocephalic and atraumatic. Comments: Approximately 2 cm linear laceration on Left parietal area Edges well approximated, appears healing, scab in place. No active bleeding or drainage Mild TTP No significant hematoma noted on exam Moderate TTP to left lower mandible without obvious deformity, overlying trauma Right Ear: Tympanic membrane normal. Left Ear: Tympanic membrane normal. Mouth/Throat: Mouth: Mucous membranes are moist. Pharynx: Oropharynx is clear. Eyes: Conjunctiva/sclera: Conjunctivae normal. Pupils: Pupils are equal, round, and reactive to light. Neck: Comments: Mild R sided trapezius TTP Cardiovascular: Rate and Rhythm: Normal rate and regular rhythm. Heart sounds: No murmur heard. Pulmonary: Effort: Pulmonary effort is normal. Breath sounds: No wheezing, rhonchi or rales. Musculoskeletal: Cervical back: Normal range of motion. Comments: Superficial abrasion to right lower chest wall No midline cervical or thoracolumbar spinal TTP Skin: General: Skin is warm and dry. Comments: Superficial abrasion to left lateral elbow. No bleeding, drainage, surrounding erythema, or swelling noted Neurological: Mental Status: Justin Goins is alert and oriented to person, place, and time. Cranial Nerves: No cranial nerve deficit. Sensory: No sensory deficit. Motor: No weakness. Coordination: Coordination normal. Comments: Antalgic gait, pt on crutches. Able to balance on right leg only without difficulty Pt reported feeling of lightheadedness when shifting left let to obtain repeat BP, pt reported withpain from left knee. This spontaneously resolved with rest. Repeat BP obtained without difficulty. ASSESSMENT & PLAN 1. Concussion with loss of consciousness, subsequent encounter - ICD9: V58.89, 850.5, ICD10: S06.0X9D (primary diagnosis) 2. Laceration of scalp, subsequent encounter - ICD9: V58.89, 873.0, ICD10: S01.01XD 3. Strain of right trapezius muscle, subsequent encounter - ICD9: V58.89, 840.8, ICD10: S46.811D 4. Jaw pain - ICD9: 784.92, ICD10: R68.84 Fall while covering boat with tarp with head trauma, reported LOC of unknown duration yesterday. Denies hx seizures. No reported dizziness/presyncope prior to fall. S/p outside ED evaluation - pt reported CT Head and Cervical Spine completed, states he was not advised further follow up for this Cranial nerve testing and finger to nose testing intact. Limited balance exam possible in setting of pt's left knee pain and crutches, pt able to balance without difficulty on single leg standing on right. Suggestive of concussion. Continue to monitor left ear ringing, improved per history. No acute findings on ear exam bilaterally. Brief lightheadedness during appt when moving left leg, likely 2/2 pain, resolved spontaneously. Has not had persistent dizziness or lightheadedness Given no recurrent vomiting, improved ringing in left ear, no focal neurologic findings, low suspicion for new acute intracranial pathology. However, reviewed with pt that I do not have imaging reports for CT Head and C-Spine for confirmation. There is a low threshold for presentation to ED if any new or worsening symptoms. This was reviewedin detail with pt. Will obtain jaw XR for tenderness to palpation of left lower jaw - Advised brain rest in setting of concussion, encourage hydration - XR MANDIBLE 4V PA/YG/BOTH OBL - Low threshold to return to ED for evaluation - including if recurrent vomiting, worsening fatigue, drowsiness, recurrent dizziness/lightheadedness, vision change, severe headache, change in mental status, feeling faint, numbness/tingling/weakness, feeling very unwell - Follow up with Neurology for concussion with LOC - Follow up in 1 week or sooner as needed Pt reports left knee pain since injury, currently using crutches. Pt seeking evaluation in [facility], states he was advised when trying to schedule an Orthoappt. Evaluation for knee not completed at time of this visit. Johanna Jacques MD Medical Decision Making: Problems: Moderate: New problem with uncertain prognosis Data: Unique test(s) ordered: 1 Risk: Moderate: Moderate risk from testing/treatment Medical Decision Making Level: 4 - Moderate documented in this encounter[facility]07-[facility]23 Miscellaneous Notes* Telephone Encounter - Nahomi Raymond RN - 04/02/2023 10:40 AM EDT Patient calling with request for appointment with follow up with a PCP after being seen in the emergency room yesterday after passing out falling off his boat and hitting his head. Patient states that has an open gash on his head and some ringing in his left ear. Patient said that the nurse that was in the room with him yesterday questioned the DRShruti about the opened gash on his head and the Dr. did not close the open area. Patient denies any new or worsening symptoms of which a provider is not aware:Yes patient would like another DrShruti to look at the open wound on his head. Marli from the is going to schedule patient an appointment. documented in this encounterGal[facility]12-30-2022 NoteHNO ID: [id number] Author: RT Dann(Jaret) Service: Radiology Author Type: Technologist Type: Progress Notes Filed: 09/25/2022 4:32 PM Note Text: Radiology Service Progress Note PATIENT NAME: Justin Goins DATE OF SERVICE: September 25, 2022 TIME: 4:32 PM PATIENT IDENTITY VERIFICATION COMPLETED USING TWO (2) IDENTIFIERS: Name and Date of confirmed by patient verbally and Name and Date of confirmed by identification band. FALL SCREENING: Has the patient had 2 falls in the last year or 1 fall with injury or currently using an Ambulatory Assistive Device (Walker, Cane, Wheelchair, Crutches, etc.)? No PATIENT GENDER DATA: Male PATIENT RELEVANT IMPLANT DATA REVIEWED: Not Applicable RADIOLOGY DEPARTMENT: CT; Exam(s) Completed: Cardiac PERIPHERAL IV DATA: Not applicable SIGNED BY: RT Dann(R) September 25, 2022 4:32 [id number] of Present illness Narrative* Maria M Boswell RT(Jaret) - 09/25/2022 4:00 PM EST Radiology Service Progress Note PATIENT NAME: Justin Goins DATE OF SERVICE: September 25, 2022 TIME: 4:32 PM PATIENT IDENTITY VERIFICATION COMPLETED USING TWO (2) IDENTIFIERS: Name and Date of confirmedby patient verbally and Name and Date of confirmed by identification band. FALL SCREENING: Has the patient had 2 falls in the last year or 1 fall with injury or currently using an Ambulatory Assistive Device (Walker, Cane, Wheelchair, Crutches, etc.)? No PATIENT GENDER DATA: Male PATIENT RELEVANT IMPLANT DATA REVIEWED: Not Applicable RADIOLOGY DEPARTMENT: CT; Exam(s) Completed: Cardiac PERIPHERAL IV DATA: Not applicable SIGNED BY: FAB Quigley) September 25, 2022 4:32 PM documented in this encounterGalion [facility] Hospital11-07-2022 NoteHNO ID: [id number] Author: RT Joshi (R) Service: Radiology Author Type: Care Manager Cna Type: Progress Notes Filed: 08/03/2022 9:10 AM Note Text: Radiology Service Progress Note PATIENT NAME: Justin GOINS DATE OF SERVICE: August 03, 2022 TIME: 9:09 AM PATIENT IDENTITY VERIFICATION COMPLETED USING TWO (2) IDENTIFIERS: Name and Date of confirmed by patient verbally and Name and Date of confirmed by identification band. FALL SCREENING: Has the patient had 2 falls in the last year or 1 fall with injury or currently using an Ambulatory Assistive Device (Walker, Cane, Wheelchair, Crutches, etc.)? No PATIENT GENDER DATA: Male PATIENT RELEVANT IMPLANT DATA REVIEWED: Not Applicable RADIOLOGY DEPARTMENT: General X-ray: Exam(s) Completed: Spine X-Ray(s): Cervical AP / LAT / OBL Upper Extremity X-Ray(s): Shoulder, AP / TRUE AP / AXILLARY right PERIPHERAL IV DATA: Not applicable SIGNED BY: FAB Joshi) August 03, 2022 9:09 [id number] of Present illness Narrative* Kong Schreiber RT(R) - 08/03/2022 8:50 AM EST Radiology Service Progress Note PATIENT NAME: Justin GOINS DATE OF SERVICE: August 03, 2022 TIME: 9:09 AM PATIENT IDENTITY VERIFICATION COMPLETED USING TWO (2) IDENTIFIERS: Name and Date of confirmedby patient verbally and Name and Date of confirmed by identification band. FALL SCREENING: Has the patient had 2 falls in the last year or 1 fall with injury or currently using an Ambulatory Assistive Device (Walker, Cane, Wheelchair, Crutches, etc.)? No PATIENT GENDER DATA: Male PATIENT RELEVANT IMPLANT DATA REVIEWED: Not Applicable RADIOLOGY DEPARTMENT: General X-ray: Exam(s) Completed: Spine X-Ray(s): Cervical AP / LAT / OBL Upper Extremity X-Ray(s): Shoulder, AP / TRUE AP / AXILLARY right PERIPHERAL IV DATA: Not applicable SIGNED BY: RT Madelyn(R) August 03, 2022 9:09 AM [facility]* Diagnosis Sprain of medial collateral ligament of left knee, initial encounter- Primary Acute pain of left knee [facility] Diagnosis Concussion with loss of consciousness, subsequent encounter- Primary Laceration of scalp, subsequent encounter Strain of right trapezius muscle, subsequent encounter Jaw pain [facility] Diagnosis Sprain of medial collateral ligament of left knee, initial encounter- Primary [facility]* Diagnosis Right upper quadrant abdominal pain Abdominal pain, right upper quadrant Blood in stool Nausea and vomiting, unspecified vomiting type Diarrhea, unspecified type Loss of weight [facility]* Diagnosis Sprain of medial collateral ligament of left knee, subsequent encounter- Primary Pain in left mcclelland Laxity, ligament Laxity of ligament [facility] Diagnosis Chronic right shoulder pain Pain in joint, shoulder region documented [facility] this encounter [facility]* Diagnosis Encounter for screening for cardiovascular disorders Screening for other and unspecified cardiovascular conditions documented in this encounter [facility] note* Diagnosis Sprain of medial collateral ligament of left knee, initial encounter documented in this encounter [facility] note* Diagnosis Pain in left mcclelland documented in this encounter [facility] note* Diagnosis Sprain of medial collateral ligament of left knee, initial encounter Acute pain of left knee documented in this encounter [facility] note* Diagnosis Acute pain of left knee- Primary documented in this encounter [facility] note* Diagnosis Mid back pain Backache, unspecified documented in this encounter [facility] noteNo assessment information availableFlower [facility]tr Work Phone: Evaluation note* Diagnosis Other chronic allergic conjunctivitis of both eyes- Primary documented in this encounter [facility] general Narrative - Reported* Type Description Date Medical History rt ankle sprain Medical History back pain Medical History tare rt shoulder Medical History coronary artery disease Medical History mcl injury left side [employer] Other Reason for referral (narrative)* Diagnostic Procedure Only (Routine) - Closed Specialty Diagnoses / Procedures Referred By Jumana saavedra Referred To Contact XR IMAGING Diagnoses Acute pain of left knee Procedures XR KNEE GENERAL 4V AP BOTH/PA BOTH/LAT/MERC LEFT RADIOLOGIC EXAM KNEE COMPLETE 4/MORE VIEWS Svitlana Norman PA-C [address] [place] [address] Xr Imaging Referral ID Status Reason Start Date Expiration Date V isits Requested Visits Authorized [id number] Closed Auto-Generate d Referral 04/02/2023 05/01/2024 [address] [facility] for referral (narrative)* Outpatient Procedure (Routine) - Closed Specialty Diagnoses / Procedures Referred By Jumana saavedra Referred To Contact [facility] Diagnoses Right upper quadrant abdominal pain Diarrhea, unspecified type Loss of weight Blood in stool Procedures COLONOSCOPY DIAGNOSTIC COLONOSCOPY FLX DX W/COLLJ SPEC WHEN PFRMD Thelma Martinez Jr., DO [address] [place] [address] [facility] [address] [place] [address] Referral ID Status Reason Start Date Expiration Date V isits Requested Visits Authorized [id number] Closed Auto-Generate d Referral 09/11/2022 09/11/2023 1 1 * Outpatient Procedure (Routine) - Closed Specialty Diagnoses / Procedures Referred By Contac t Referred To Contact [facility] Diagnoses Right upper quadrant abdominal pain Blood in stool Nausea and vomiting, unspecified vomiting type Procedures EGD DIAGNOSTIC ESOPHAGOGASTRODUODENOSC OPY TRANSORAL DIAGNOSTIC Thelma Martinez Jr., DO [address] [place] [address] [facility] [address] [address] Referral ID Status Reason Start Date Expiration Date V isits Requested Visits Authorized [id number] Closed Auto-Generate d Referral 09/11/2022 09/11/2023 [address] [facility] for referral (narrative)* Diagnostic Procedure Only (Routine) - Closed Specialty Diagnoses / Procedures Referred By Contac t Referred To Contact XR IMAGING Diagnoses Chronic right shoulder pain Procedures XR CERV OTHER 4V AP/LAT/OBL RADEX SPINE CERVICAL 4 OR 5 VIEWS Fawn Tsai, DO [address] [place] [address] [place] [address] Referral ID Status Reason Start Date Expiration Date V isits Requested Visits Authorized [id number] Closed Auto-Generate d Referral 12/24/2021 01/23/2023 1 1 * Diagnostic Procedure Only (Routine) - Closed Specialty Diagnoses / Procedures Referred By Contac t Referred To Contact XR IMAGING Diagnoses Chronic right shoulder pain Procedures XR SHOULDER GENERAL 3V OR MORE AP/TRUE AP/OTHER RIGHT RADEX SHOULDER COMPLETE MINIMUM 2 VIEWS Fawn Tsai, DO [address] [place] [address] [place] [address] Referral ID Status Reason Start Date Expiration Date V isits Requested Visits Authorized [id number] Closed Auto-Generate d Referral 12/24/2021 01/23/2023 [address] [facility] for referral (narrative)* Diagnostic Procedure Only (Routine) - Closed Specialty Diagnoses / Procedures Referred By Contac t Referred To Contact XR IMAGING Diagnoses Pain in left mcclelland Procedures XR TIBIA FIBULA 2V AP/LAT LEFT RADIOLOGIC EXAMINATION TIBIA & FIBULA 2 VIEWS Svitlana Norman PA-C [address] [place] [address] [place] [address] Referral ID Status Reason Start Date Expiration Date V isits Requested Visits Authorized [id number] Closed Auto-Generate d Referral 05/11/2023 06/09/2024 1 1 [facility] (n[facility]ative)* Diagnostic Procedure Only (Routine) - Closed Specialty Diagnoses / Procedures Referred By Contac t Referred To Contact XR IMAGING Diagnoses Mid back pain Procedures XR THORACIC GENERAL 3V AP/LAT/SWIMMERS RADEX SPINE THORACIC 3 VIEWS Dorothy Waldron PA-C [address] [place] [address] [place] [address] Referral ID Status Reason Start Date Expiration Date V isits Requested Visits Authorized [id number] Closed Auto-Generate d Referral 09/13/2023 10/12/2024 1 1 [facility] for visit Narrative* Outpatient Procedure (Routine) - Closed Specialty Diagnoses / Procedures Referred By Contac t Referred To Contact [facility] Diagnoses Right upper quadrant abdominal pain Blood in stool Nausea and vomiting, unspecified vomiting type Procedures EGD DIAGNOSTIC ESOPHAGOGASTRODUODENOSC OPY TRANSORAL DIAGNOSTIC Thelma Martinez Jr., DO [address] [place] [address] [facility] [address] [place] [address] Referral ID Status Reason Start Date Expiration Date V isits Requested Visits Authorized [id number] Closed Auto-Generate d Referral 09/11/2022 09/11/2023 1 1 [facility]* Diagnostic Procedure Only (Routine) - Closed Specialty Diagnoses / Procedures Referred By Contac t Referred To Contact XR IMAGING Diagnoses Mid back pain Procedures XR THORACIC GENERAL 3V AP/LAT/SWIMMERS RADEX SPINE THORACIC 3 VIEWS Dorothy Waldron, PAEfrainC [address] [place] [address] [place] [address] Referral ID Status Reason Start Date Expiration Date V isits Requested Visits Authorized [id number] Closed Auto-Generate d Referral 09/13/2023 10/12/2024 1 1 [facility] Summary Purpose Family History No Family History Records FoundNo Family History Records FoundNo Family History Records FoundNo Family History Records FoundNo Family History Records Found Advance Directives No Advanced Directives Records Found Advance Directive Response Recorded Date/ Time Advance Directives No May 11:37am Reason for Referral Specialty Diagnoses / Procedures Referred By Contac t Referred To Contact Neurology Diagnoses Concussion with loss of consciousness, subsequent encounter Procedures CONSULT TO NEUROLOGY OFFICE/OUTPATIENT [facility] 60-[place] [address] [place] [address] Referral ID Status Reason Start Date Expiration Date Visits Requested Visits Authorized [id number] Authorized PCP Requested Referral 04/02/2023 04/01/2024 1 1 Specialty Diagnoses / Procedures Referred By Contac t Referred To Contact XR IMAGING Diagnoses Jaw pain Procedures XR MANDIBLE 4V PA/YG/BOTH OBL RADIOLOG EXAM MANDIBLE COMPL MINIMUM 4 VIEWS Johanna Jacques [place] [id number] [place] [address] Xr Imaging Referral ID Status Reason Start Date Expiration Date Visits Requested Visits Authorized [id number] Pending Review Auto-Generat ed Referral 04/02/2023 05/01/2024 1 1 Specialty Diagnoses / Procedures Referred By Contac t Referred To Contact MR IMAGING Diagnoses Sprain of medial collateral ligament of left knee, initial encounter Procedures MRI KNEE WO IVCON LEFT MRI ANY JT LOWER EXTREM W/O CONTRAST MATRL Svitlana Norman PA-C [address] [place] [address] Mr Imaging Referral ID Status Reason Start Date Expiration Date Visits Requested Visits Authorized [id number] Pending Review Auto-Generat ed Referral 04/08/2023 05/07/2024 1 1 Specialty Diagnoses / Procedures Referred By Contac t Referred To Contact [facility] Diagnoses Sprain of medial collateral ligament of left knee, initial encounter Procedures CONSULT TO PHYSICAL THERAPY PHYSICAL THERAPY EVALUATION HIGH COMPLEX 45 MINS Svitlana Norman PA-C [address] [place] [address] [facility] [address] [place] [address] Referral ID Status Reason Start Date Expiration Date Visits Requested Visits Authorized [id number] Pending Review Auto-Generat ed Referral 04/08/2023 04/07/2024 1 1 Specialty Diagnoses / Procedures Referred By Contac t Referred To Contact Rheumatology Diagnoses Laxity, ligament Procedures CONSULT TO RHEUM/IMMUN DISEASE OFFICE/OUTPATIENT [facility] MDM 60-74 MINUTES Svitlana Norman PA-C [address] [place] [address] Referral ID Status Reason Start Date Expiration Date Visits Requested Visits Authorized [id number] Authorized PCP Requested Referral 05/11/2023 05/10/2024 1 1 Specialty Diagnoses / Procedures Referred By Contac t Referred To Contact XR IMAGING Diagnoses Pain in left mcclelland Procedures XR TIBIA FIBULA 2V AP/LAT LEFT RADIOLOGIC EXAMINATION TIBIA & FIBULA 2 VIEWS Svitlana Norman PA-C [address] [place] [address] Xr Imaging Referral ID Status Reason Start Date Expiration Date V isits Requested Visits Authorized [id number] Closed Auto-Generate d Referral 05/11/2023 06/09/2024 1 1 Specialty Diagnoses / Procedures Referred By Contac t Referred To Contact CT IMAGING Diagnoses Encounter for screening for cardiovascular disorders Procedures CT CALCIUM SCORING SELF PAY ([place]) UNLISTED COMPUTED [place] [address] [place] [address] [place] [address] Referral ID Status Reason Start Date Expiration Date V isits Requested Visits Authorized [id number] Closed Auto-Generate d Referral 07/21/2022 09/26/2022 1 0 Specialty Diagnoses / Procedures Referred By Contac t Referred To Contact MR IMAGING Diagnoses Sprain of medial collateral ligament of left knee, initial encounter Procedures MRI KNEE WO IVCON LEFT MRI ANY JT LOWER EXTREM W/O CONTRAST MATRL Svitlana Norman PA-C [address] [place] [address] [place] [address] Referral ID Status Reason Start Date Expiration Date V isits Requested Visits Authorized [id number] Closed Auto-Generate d Referral 04/21/2023 06/20/2023 1 1 Specialty Diagnoses / Procedures Referred By Contac t Referred To Contact [facility] Diagnoses Acute pain of left knee Procedures PT REHAB FOLLOW UP ORDER THERAPEUTIC EXERCISES RE, EA 15 MIN. Svitlana Norman PA-C [address] [place] [address] [facility] [address] [place] [address] Referral ID Status Reason Start Date Expiration Date Visits Requested Visits Authorized [id number] Authorized PCP Requested Referral Auto-Generate d Referral 3 10/26/2023 4 4 Specialty Diagnoses / Procedures Referred By Contac t Referred To Contact [facility] Diagnoses Acute pain of left knee Procedures PT REHAB FOLLOW UP ORDER THERAPEUTIC EXERCISES RE, EA 15 MIN. Pt [facility] [address] [place] [address] [facility] [address] [place] [address] Referral ID Status Reason Start Date Expiration Date Visits Requested Visits Authorized [id number] Pending Review PCP Requested Referral Auto-Generate d Referral 3 12/05/2023 1 1 Medications Administered Section Inactive Administered Medications - up to 3 most recent administrations Medication Order MAR Action Action Date Dose Rate Site NaCl 0.9% iv infusion 50 mL/hr, INTRAVENOUS, CONTINUOUS, Starting on Wed05/03/23 at 0800, Until Wed05/03/23 at 1008, Preprocedure Restarted 05/03/2023 8:40 AM EDT New Bag/Syringe/Bottle 05/03/2023 8:19 AM EDT 50 mL/hr 5 0 mL/hr Additional Source Comments (unrecognized sect ion and content) No Status Records FoundNo Status Records FoundNo Status Records FoundNo Status Records FoundNo Status Records Found INFORMATION SOURCE (unrecogn ized section and content) DATE CREATED AUTHOR 05/03/2021 [facility] DATE CREATED AUTHOR AUTHOR'S ORGANIZ ATION 09/26/2022 [facility] DATE CREATED AUTHOR AUTHOR'S ORGANIZ ATION 01/25/2023 [facility] DATE CREATED AUTHOR AUTHOR'S ORGANIZ ATION 2023 [facility] DATE CREATED AUTHOR AUTHOR'S ORGANIZ ATION 03/11/2024 [facility] Source Comments (unrecognize d section and content) In the event this informatio n is protected by the Federal Confidentiality of Alcohol and Drug Abuse Patient Records regulations: The Federal rules restrict any use of the information to criminally investigate or prosecute any alcohol or drug abuse patient.[facility] the event this information is protected by the Federal Confidentiality of Alcohol and Drug Abuse Patient Records regulations: The Federal rules restrict any use of the information to criminally investigate or prosecute any alcohol or drug abuse patient.[facility] Hospital[facility] the event this information is protected by the Federal Confidentiality of Alcohol and Drug Abuse Patient Records regulations: The Federal rules restrict any use of the information to criminally investigate or prosecute any alcohol or drug abuse patient.[facility] Hospital[facility] the event this information is protected by the Federal Confidentiality of Alcohol and Drug Abuse Patient Records regulations: The Federal rules restrict any use of the information to criminally investigate or prosecute any alcohol or drug abuse patient.[facility] Hospital[facility] the event this information is protected by the Federal Confidentiality of Alcohol and Drug Abuse Patient Records regulations: The Federal rules restrict any use of the information to criminally investigate or prosecute any alcohol or drug abuse patient.[facility] Hospital[facility] the event this information is protected by the Federal Confidentiality of Alcohol and Drug Abuse Patient Records regulations: The Federal rules restrict any use of the information to criminally investigate or prosecute any alcohol or drug abuse patient.[facility] HospitalIn the event this information is protected by the Federal Confidentiality of Alcohol and Drug Abuse Patient Records regulations: The Federal rules restrict any use of the information to criminally investigate or prosecute any alcohol or drug abuse patient.[facility] Hospital[facility] the event this information is protected by the Federal Confidentiality of Alcohol and Drug Abuse Patient Records regulations: The Federal rules restrict any use of the information to criminally investigate or prosecute any alcohol or drug abuse patient.[facility] Hospital[facility] the event this information is protected by the Federal Confidentiality of Alcohol and Drug Abuse Patient Records regulations: The Federal rules restrict any use of the information to criminally investigate or prosecute any alcohol or drug abuse patient.[facility] the event this information is protected by the Federal Confidentiality of Alcohol and Drug Abuse Patient Records regulations: The Federal rules restrict any use of the information to criminally investigate or prosecute any alcohol or drug abuse patient.[facility] HospitalIn the event this information is protected by the Federal Confidentiality of Alcohol and Drug Abuse Patient Records regulations: The Federal rules restrict any use of the information to criminally investigate or prosecute any alcohol or drug abuse patient.[facility] HospitalIn the event this information is protected by the Federal Confidentiality of Alcohol and Drug Abuse Patient Records regulations: The Federal rules restrict any use of the information to criminally investigate or prosecute any alcohol or drug abuse patient.[facility] HospitalIn the event this information is protected by the Federal Confidentiality of Alcohol and Drug Abuse Patient Records regulations: The Federal rules restrict any use of the information to criminally investigate or prosecute any alcohol or drug abuse patient.[facility] Hospital[facility] the event this information is protected by the Federal Confidentiality of Alcohol and Drug Abuse Patient Records regulations: The Federal rules restrict any use of the information to criminally investigate or prosecute any alcohol or drug abuse patient.[facility] HospitalIn the event this information is protected by the Federal Confidentiality of Alcohol and Drug Abuse Patient Records regulations: The Federal rules restrict any use of the information to criminally investigate or prosecute any alcohol or drug abuse patient.[facility] HospitalIn the event this information is protected by the Federal Confidentiality of Alcohol and Drug Abuse Patient Records regulations: The Federal rules restrict any use of the information to criminally investigate or prosecute any alcohol or drug abuse patient.[facility] HospitalIn the event this information is protected by the Federal Confidentiality of Alcohol and Drug Abuse Patient Records regulations: The Federal rules restrict any use of the information to criminally investigate or prosecute any alcohol or drug abuse patient.[facility] HospitalIn the event this information is protected by the Federal Confidentiality of Alcohol and Drug Abuse Patient Records regulations: The Federal rules restrict any use of the information to criminally investigate or prosecute any alcohol or drug abuse patient.[facility] HospitalIn the event this information is protected by the Federal Confidentiality of Alcohol and Drug Abuse Patient Records regulations: The Federal rules restrict any use of the information to criminally investigate or prosecute any alcohol or drug abuse patient.[facility] HospitalIn the event this information is protected by the Federal Confidentiality of Alcohol and Drug Abuse Patient Records regulations: The Federal rules restrict any use of the information to criminally investigate or prosecute any alcohol or drug abuse patient.[facility] HospitalIn the event this information is protected by the Federal Confidentiality of Alcohol and Drug Abuse Patient Records regulations: The Federal rules restrict any use of the information to criminally investigate or prosecute any alcohol or drug abuse patient.[facility] HospitalIn the event this information is protected by the Federal Confidentiality of Alcohol and Drug Abuse Patient Records regulations: The Federal rules restrict any use of the information to criminally investigate or prosecute any alcohol or drug abuse patient.[facility] HospitalIn the event this information is protected by the Federal Confidentiality of Alcohol and Drug Abuse Patient Records regulations: The Federal rules restrict any use of the information to criminally investigate or prosecute any alcohol or drug abuse patient.[facility] Reason for Visit (unrecogniz ed section and content) Reason Comments Referral Request Reason Comments Pain New Reason Comments Recheck Reason Comments Established Patient Left Knee Pain Reason Comments Results Reason Comments Follow Up Results - Mri Knee Pain Reason Comments Appointment Pain Reason Comments Radiology XR Specialty Diagnoses / Procedures Referred By Contac t Referred To Contact XR IMAGING Diagnoses Chronic right shoulder pain Procedures XR SHOULDER GENERAL 3V OR MORE AP/TRUE AP/OTHER RIGHT RADEX SHOULDER COMPLETE MINIMUM 2 VIEWS Fawn Tsai, DO [address] [place] [address] [place] [address] Referral ID Status Reason Start Date Expiration Date V isits Requested Visits Authorized [id number] Closed Auto-Generate d Referral 12/24/2021 01/23/2023 1 1 Specialty Diagnoses / Procedures Referred By Contac t Referred To Contact CT IMAGING Diagnoses Encounter for screening for cardiovascular disorders Procedures CT CALCIUM SCORING SELF PAY ([place]) UNLISTED COMPUTED TOMOGRAPHY PROCEDURE De, [place], [place] [address] [place] [address] [place] [address] Referral ID Status Reason Start Date Expiration Date V isits Requested Visits Authorized [id number] Closed Auto-Generate d Referral 07/21/2022 09/26/2022 1 0 Specialty Diagnoses / Procedures Referred By Contac t Referred To Contact MR IMAGING Diagnoses Sprain of medial collateral ligament of left knee, initial encounter Procedures MRI KNEE WO IVCON LEFT MRI ANY JT LOWER EXTREM W/O CONTRAST MATRL Svitlana Norman PA-C [address] [place] [address] [place] [address] Referral ID Status Reason Start Date Expiration Date V isits Requested Visits Authorized [id number] Closed Auto-Generate d Referral 04/21/2023 06/20/2023 1 1 Reason Comments Radiology XR Specialty Diagnoses / Procedures Referred By Contac t Referred To Contact XR IMAGING Diagnoses Pain in left mcclelland Procedures XR TIBIA FIBULA 2V AP/LAT LEFT RADIOLOGIC EXAMINATION TIBIA & FIBULA 2 VIEWS Svitlana Norman PA-C [address] [place] [address] [place] [address] Referral ID Status Reason Start Date Expiration Date V isits Requested Visits Authorized [id number] Closed Auto-Generate d Referral 05/11/2023 06/09/2024 1 1 Reason Comments PT Eval Specialty Diagnoses / Procedures Referred By Contac t Referred To Contact PHYSICAL THERAPY Diagnoses Sprain of medial collateral ligament of left knee, initial encounter Procedures CONSULT TO PHYSICAL THERAPY PHYSICAL THERAPY EVALUATION HIGH COMPLEX 45 MINS Svitlana Norman PA-C [address] [place] [address] [facility] [id number] [place] [address] Referral ID Status Reason Start Date Expiration Date V isits Requested Visits Authorized [id number] Closed Auto-Generate d Referral 09/27/2022 09/26/2023 1 1 Reason Comments Physical Therapy Specialty Diagnoses / Procedures Referred By Contac t Referred To Contact [facility] Diagnoses Acute pain of left knee Procedures PT REHAB FOLLOW UP ORDER THERAPEUTIC EXERCISES RE, EA 15 MIN. Svitlana Li PA-C [address] [facility] [place] [address] [facility] [address] [place] [address] Referral ID Status Reason Start Date Expiration Date Visits Requested Visits Authorized [id number] Authorized PCP Requested Referral Auto-Generate d Referral 3 10/26/2023 4 4 Reason Comments Eye Discharge Both Eyes Red Eye Both Eyes Foreign Body Right Eye Care Teams (unrecognized sec tion and content) Team Status: Active Member Role Status Dates PHYSICIAN NO FAMILY Primary Care Provider Active Team Status: Inactive Member Role Status Dates PHYSICIAN NO FAMILY Primary Care Provider Active Ivan Mendoza , Attending Provider Active Goals (unrecognized section and content) Goals may be documented in a n alternate sectionNo Information FOR RECORDS PERTAINING TO PATIENTS WHO ARE OR HAVE BEEN ENROLLED IN A CHEMICAL DEPENDENCY/SUBSTANCEABUSE PROGRAM, SOME INFORMATION MAY BE OMITTED. This clinical summary was aggregated from multiple sources. Caution should be exercised in using it in the provision of clinical care. This summary normalizes information from multiple sources, and as a consequence, information in this document may materially change the coding, format and clinical context of patient data. In addition, data may be omitted in some cases. CLINICAL DECISIONS SHOULD BE BASED ON THE PRIMARY CLINICAL RECORDS. [employer] provides no warranty or guarantee of the accuracy or completeness of information in this document.
--- NOTE | 2024-03-16 07:08 | XR_ITS ---
The [address] [address] Patient Name: JAMA GOLD MRN: [id number] date: 1990 Sex: M Assigned Patient Location: MRI Current Patient Location: MRI Accession/Order Number: [id number] Exam Date: 03/16/2024 07:08 Report Date: 03/16/2024 07:28 At the request of: RADHA ANDINO Procedure: XR foreign body eye NATHAN EXAMINATION: XR foreign body eye NATHAN HISTORY: rule our foreign body, pre MRI COMPARISON: No relevant comparison available. FINDINGS: ORBITS: Negative for a metallic foreign body. OTHER: Negative. XR/XR foreign body eye NATHAN IMPRESSION: 1. No metallic foreign body within the orbits. Electronically authenticated by: NILSA CHEW Date: 03/16/2024 07:28
== END 2024-03-16 06:58 | disposition home or self-care (01) ==
LOC: MRI 06:57
PROVIDERS: Visit Provider Student in an Organized Health Care Education/Training Program
DX: M25.562 Pain in left knee (principal)
CPT/HCPCS: 70030; 73721

== ENCOUNTER 2025-02-07 14:34 | Emergency (ER) | payer OTHER, SELFPAY ==
[2025-02-07 15:07] VITALS: BP 115/96; PULSE 93; TEMP 36.8; O2SAT 100; BMI 25.8
--- NOTE | 2025-02-07 15:23 | PC.NURSE ---
Presents with c/o blood in stool since Wednesday, gradually worsening. Denies any known hemorrhoids. States had a similar episode a couple years ago. Denies any pain, N/V. Resp regular, non-labored. Skin warm, dry, pink.
[2025-02-07 15:52] LABS: Basophils Absolute Auto 0.1 10^3/uL (0.0-0.1); Basophils Percent Auto 0.4 % (0.2-2.0); Eosinophils Absolute Auto 0.1 10^3/uL (0.0-0.7); Eosinophils Percent Auto 0.8 % (0.9-7.0); Hematocrit 30.6 % (42.0-54.0); Hemoglobin 10.7 g/dL (14.0-18.0); Immature Granulocytes Abs Auto 0.07 10^3/uL (0.00-0.03); Immature Granulocytes Pct Auto 0.5 % (0.0-0.5); Lymphocytes Absolute Auto 2.5 10^3/uL (1.2-3.8); Lymphocytes Percent Auto 17.4 % (20.5-60.0); Mean Corpuscular Hemoglobin 30.2 pg (25.9-34.0); Mean Corpuscular Volume 86.4 fL (80.0-94.0); Mean Platelet Volume 9.1 fL (9.5-13.5); Monocytes Absolute Auto 0.5 10^3/uL (0.3-0.8); Monocytes Percent Auto 3.7 % (1.7-12.0); Neutrophils Absolute Auto 11.3 10^3/uL (1.4-6.5); Neutrophils Percent Auto 77.2 % (43.0-75.0); Platelet Count 258 10^3/uL (150-450); Red Blood Count 3.54 10^6/uL (4.70-6.10); Red Cell Distribution Width 12.1 % (11.0-15.0); White Blood Count 14.6 10^3/uL (4.0-11.0)
[2025-02-07 16:03] LABS: Internal Control Within Normal Limits
[2025-02-07 16:05] LABS: Occult Blood Positive
--- NOTE | 2025-02-07 16:08 | ED.GENADUL1 ---
HPI HPI - General Adult General Chief complaint: GI Bleed Stated complaint: RECTAL BLEEDING Time Seen by Provider: 02/07/25 15:14 Source: patient Mode of arrival: walk-in Limitations: no limitations History of Present Illness HPI narrative: The patient is a 34-year-old male who presents to the emergency department today for evaluation for concerns for bloody stools. He endorses over the past 4 days he has had progressively worsening bloody stools that have progressed from being black to bright red and feeling the toilet bowl twice a day. Some abdominal cramping and feeling lightheaded. He denies any syncopal episodes. No chest pain or shortness of breath. He states he is not on any oral anticoagulants or antiplatelet medications. He reports a remote history of being evaluated by GI out of [facility] due to symptoms of nausea and vomiting after meals. He reports a remote history of rectal bleeding but states it is never been this significant. Does endorse a history of alcohol use and states he had been binge drinking over the weekend but otherwise is vague in providing further details of his alcohol use. He denies any NSAID use. Related Data Home Medications ?Medication ?Instructions ?Recorded ?Confirmed No Known Home Medications 02/07/25 02/07/25 Allergies Allergy/AdvReac Type Severity Reaction Status Date / Time No Known Drug Allergies Allergy Verified 02/07/25 15:06 Review of Systems ROS Status of ROS 10 or more systems reviewed and unremarkable except as noted in history and below PFSH PFSH Social History Little interest or pleasure in doing things: not at all Feeling down, depressed, or hopeless: not at all Exam Narrative Exam Narrative: Constituational: Awake/ alert, no apparent distress, well hydrated HENMT: normocephalic, external ears normal, moist oral mucous membranes and oropharynx normal Eyes: EOMI and conjunctivae normal Neck: ROM intact Chest: inspection of chest normal Respiratory: Normal respiratory effort, clear to auscultation bilaterally Cardio: regular rate and regular rhythm GI: soft to palpation and non-tender Rectal: Deferred due to patient cooperation Back: nontender MSK: ROM intact, +NVI Skin: no rashes or petechiae Neuro: no focal deficits Psych: mental status grossly normal Constitutional Vital Signs, click to edit/add: Last Vital Signs Temp 98.2 F 02/07/25 15:07 Pulse 93 H 02/07/25 15:07 Resp 18 02/07/25 15:07 BP 115/96 H 02/07/25 15:07 Pulse Ox 100 02/07/25 15:07 O2 Del Method Room Air 02/07/25 15:07 Course Vital Signs Vital signs: Vital Signs Temperature 98.2 F 02/07/25 15:07 Pulse Rate 93 H 02/07/25 15:07 Respiratory Rate 18 02/07/25 15:07 Blood Pressure 115/96 H 02/07/25 15:07 Pulse Oximetry 100 02/07/25 15:07 Oxygen Delivery Method Room Air 02/07/25 15:07 Temperature 98.2 F 02/07/25 15:07 Pulse Rate 93 H 02/07/25 15:07 Respiratory Rate 18 02/07/25 15:07 Blood Pressure 115/96 H 02/07/25 15:07 Pulse Oximetry 100 02/07/25 15:07 Oxygen Delivery Method Room Air 02/07/25 15:07 Medical Decision Making MDM Narrative Medical decision making narrative: Patient is a nontoxic-appearing 34-year-old male who presented to the emergency department today for evaluation for concerns for bloody stools. Patient did have pictures of the stools as noted just to have [place] red blood with bowel movements that have progressively become worse over the past 4 days. Otherwise initial examination vital signs stable. No acute abdominal findings on exam. Stool for occult blood is positive however patient did initially decline a rectal exam and this was subsequently obtained by nursing staff. Labs significant for mild leukocytosis with WBCs 12 and anemia with Hgb 10.7, no thrombocytopenia. Electrolytes including renal and hepatic function stable. Stool for occult blood is positive. Normal coags. CT imaging without critical findings. The patient was reevaluated multiple times while in the emergency department and had no significant changes in condition. Clinical impression GI bleed. Discussed these findings with the patient including recommendations for supportive care. Patient was provided referrals for general surgery for follow-up from the ER today. Discussed signs and symptoms of any worsening condition and when to consider reevaluation. The patient verbalized an understanding of this and is agreeable with the plan to be discharged home Medical Records Medical records reviewed: Yes I reviewed the patient's medical records Lab Data Lab results reviewed: Yes I reviewed the patient's lab results Labs: Lab Results 05/14/25 05/14/25 Range/Units 15:15 15:35 WBC 14.6 H (4.0-11.0) 10^3/uL RBC 3.54 L (4.70-6.10) 10^6/uL Hgb 10.7 L (14.0-18.0) g/dL Hct 30.6 L (42.0-54.0) % MCV 86.4 (80.0-94.0) fL MCH 30.2 (25.9-34.0) pg MCHC 35.0 (29.9-35.2) g/dL RDW 12.1 (11.0-15.0) % Plt Count 258 (150-450) 10^3/uL MPV 9.1 L (9.5-13.5) fL Neut % (Auto) 77.2 H (43.0-75.0) % Lymph % (Auto) 17.4 L (20.5-60.0) % [place] % (Auto) 3.7 (1.7-12.0) % Eos % (Auto) 0.8 L (0.9-7.0) % Baso % (Auto) 0.4 (0.2-2.0) % Neut # (Auto) 11.3 H (1.4-6.5) 10^3/uL Lymph # (Auto) 2.5 (1.2-3.8) 10^3/uL [place] # (Auto) 0.5 (0.3-0.8) 10^3/uL Eos # (Auto) 0.1 (0.0-0.7) 10^3/uL Baso # (Auto) 0.1 (0.0-0.1) 10^3/uL Abs Immat Gran (auto) 0.07 H (0.00-0.03) 10^3/uL Imm/Tot Granulo (auto) 0.5 (0.0-0.5) % PT 11.6 (9.0-11.6) sec INR 1.11 Sodium 137 (136-145) mmol/L Potassium 3.9 (3.5-5.1) mmol/L Chloride 102 (98-107) mmol/L Carbon Dioxide 27.6 (21.0-32.0) mmol/L Anion Gap 11.3 BUN 25.0 H (7.0-18.0) mg/dL Creatinine 1.02 (0.70-1.30) mg/dL Est GFR ( Amer) >60 (>=60 mL/min/1.73m^2) Est GFR (Non-Af Amer) >60 (>=60 mL/min/1.73m^2) BUN/Creatinine Ratio 24.5 Glucose 99 (74-106) mg/dL Calcium 8.5 (8.5-10.1) mg/dL Total Bilirubin 0.3 (0.2-1.0) mg/dL AST 16 (15-37) U/L ALT 24 (16-63) U/L Alkaline Phosphatase 33 L (46-116) U/L Total Protein 6.1 L (6.4-8.2) g/dL Albumin 3.6 (3.4-5.0) g/dL Globulin 2.5 g/dL Albumin/Globulin Ratio 1.4 Lipase 23.0 (16.0-77.0) U/L Stool Occult Blood Positive A Imaging Data CT scan - abdomen: Attestation: I have reviewed the pertinent imaging results. Radiologist's impression: Unremarkable CT of abdomen and pelvis. Discharge Plan Discharge Chief Complaint: GI Bleed Clinical Impression: GI (gastrointestinal bleed) Patient Disposition: Home, Self-Care Prescriptions / Home Meds: No Action No Known Home Medications Print Language: German Instructions: Gastrointestinal Bleeding (ED) Additional Instructions: Avoid use of any NSAIDs including aspirin, Aleve, or ibuprofen. Avoid any alcohol use. Please call to schedule follow-up appointment with general surgery for reevaluation as discussed. May return to the ER at anytime and with any concerns. Referrals: Zac Lehman MD [Physician, General Surgery] - 1 week Zac Mercado MD [Physician, General Surgery] - 1 week PhysicianNon-MD Tommy [Primary Care Provider] - 1 week
[2025-02-07 16:12] LABS: INR 1.11; Prothrombin Time 11.6 sec (9.0-11.6)
[2025-02-07 16:13] LABS: Alanine Aminotransferase 24 U/L (16-63); Albumin Globulin Ratio 1.4; Albumin Level 3.6 g/dL (3.4-5.0); Alkaline Phosphatase 33 U/L (46-116); Anion Gap 11.3; Aspartate Amino Transferase 16 U/L (15-37); BUN Creatinine Ratio 24.5; Bilirubin Total 0.3 mg/dL (0.2-1.0); Calcium 8.5 mg/dL (8.5-10.1); Carbon Dioxide 27.6 mmol/L (21.0-32.0); Chloride 102 mmol/L (98-107); Estimated GFR (African America >60 (>=60 mL/min/1.73m^2); Estimated GFR (Non-African Ame >60 (>=60 mL/min/1.73m^2); Globulin 2.5 g/dL; Glucose 99 mg/dL (74-106); Potassium 3.9 mmol/L (3.5-5.1); Sodium 137 mmol/L (136-145); Total Protein 6.1 g/dL (6.4-8.2)
== END 2025-02-07 18:09 | disposition home or self-care (01) ==
PROVIDERS: Nurse Practitioner; Emergency Provider Emergency Medicine
DX: K92.2 Gastrointestinal hemorrhage, unspecified (principal); F10.90 Alcohol use, unspecified, uncomplicated
CPT/HCPCS: 36415; 74176; 80053; 83690; 85025; 85610; 99285; G0328